=== PATIENT | female | born 1990 | race Caucasian/White ===

== ENCOUNTER 2017-08-23 10:32 | Emergency (ER) | payer OTHER ==
[2017-08-23 10:38] VITALS: BP 103/68; PULSE 82; TEMP 98.3; BMI 29.2
--- NOTE | 2017-08-23 10:58 | PDOC ---
History of Present Illness - General Chief Complaint: Injury Stated Complaint: FALL/ RT ANKLE SWELLING - History of Present Illness Initial Comments: 27-year-old female without comorbidities presents for evaluation of right ankle pain after twisting injury 4 days ago. She points to the lateral aspect of the right ankle as the area of his discomfort she describes her pain is achy exacerbated with weightbearing and activity relieved with rest and free of radiation. No prior problems with the right ankle. 08/23/17 10:57 Past History - Past Medical History Allergies/Adverse Reactions: Allergies Allergy/AdvReac Type Severity Reaction Status Date / Time No Known Allergies Allergy Verified 08/23/17 10:36 Home Medications: Ambulatory Orders NK [No Known Home Medication] 08/23/17 COPD: No - Surgical History Abdominal Surgery: Yes (RT OVARIAN CYST) - Suicide/Smoking/Psychosocial Hx Smoking History: Never smoked Have you smoked in the past 12 months: No Information on smoking cessation initiated: No Hx Alcohol Use: No Drug/Substance Use Hx: No Substance Use Type: None Review of Systems - Review of Systems Musculoskeletal: Yes: Joint Pain All Other Systems: Reviewed and Negative *Physical Exam - Vital Signs Last Vital Signs Temp Pulse Resp BP Pulse Ox 98.3 F 82 18 103/68 100 08/23/17 10:36 08/23/17 10:36 08/23/17 10:36 08/23/17 10:36 08/23/17 10:36 - Physical Exam Comments: Right ankle is slightly ecchymotic about the lateral aspect. There is swelling. Normal temperature. There is tenderness about the ATFL. No tenderness along the proximal fibula or to its distal course. No tenderness about the medial lateral malleolus. Base of the fifth metatarsal or navicular. There is no appreciable instability. There are no gross sensorimotor deficits range of motion is slightly decreased stiffness and discomfort. She's neurovascularly intact. 08/23/17 10:58 ED Treatment Course - RADIOLOGY Radiology Studies Ordered: Category Date Time Status ANKLE-RIGHT [RAD] Stat Radiology 08/23/17 10:52 Ordered Medical Decision Making - Medical Decision Making This is a right lateral ankle sprain no evidence of fracture or trauma on radiograph Aircast crutches weight-bear as tolerated follow-up with orthopedics 08/23/17 11:03 *DC/Admit/Observation/Transfer Diagnosis at time of Disposition: Ankle sprain - Discharge Dispostion Disposition: HOME Condition at time of disposition: Stable Decision to Admit order: No - Referrals Referrals: Tyrone Worthington MD [Staff Physician] - - Patient Instructions Printed Discharge Instructions: Ankle Sprain, DI for Ankle Sprain Additional Instructions: Ice her ankle for 20 minutes at a time 5-6 times a day he may weight-bear as tolerated with use of crutches and the Aircast please follow-up with orthopedics for further evaluation and treatment options. Return to the emergency room should her symptoms worsen or go unresolved. It's very important few to elevate the ankle above the level of your heart. May take Tylenol Motrin for pain and swelling. - Post Discharge Activity
== END 2017-08-23 11:19 | disposition home or self-care (01) ==
LOC: JERFT 10:32
PROC: 2W3QX1Z Immobilization of Right Lower Leg using Splint (ICD-10-PCS; principal; 2017-08-23)
DX: S93.401A Sprain of unspecified ligament of right ankle, initial encounter (principal); W18.39XA Other fall on same level, initial encounter; Y93.89 Activity, other specified; Y92.89 Other specified places as the place of occurrence of the external cause; Y99.8 Other external cause status
CPT/HCPCS: 29515; 73610-TC-RT-FY; 99281-25

== ENCOUNTER 2018-04-23 10:51 | Emergency (ER) | payer OTHER ==
[2018-04-23 10:57] VITALS: TEMP 98.2; BMI 29.2
--- NOTE | 2018-04-23 12:04 | PDOC ---
History of Present Illness - General Chief Complaint: Pain Stated Complaint: RTL ABD PAIN Time Seen by Provider: 04/23/18 11:11 - History of Present Illness Initial Comments: 28yo A3 with PMH of R. ovarian cyst s/p "removal three years ago", recent miscarriage in January presenting with RLQ abdominal pain. Last menstrual period was 03/12/18. She also reports one day of vaginal bleeding on 04/18/18. The pain started yesterday on Tuesday. She describes it as sharp, similar to when she had an ovarian cyst. She rates it 6/10, it occurs a couple seconds at a time and will go away on its own. The pain is nonradiating. Endorses nausea, but no vomiting. Has not taken anything for her pain. Last bowel movement was a yellow-green loose stool without blood. Patient endorses diarrhea is normal for her. No history of abdominal surgeries. She reports urinary frequency, but no dysuria or hematuria. Denies contractions, vaginal discharge, or passage of tissue. No fevers, chills, or chest pain. Past History - Past Medical History Allergies/Adverse Reactions: Allergies Allergy/AdvReac Type Severity Reaction Status Date / Time No Known Allergies Allergy Verified 04/23/18 10:56 Home Medications: Ambulatory Orders NK [No Known Home Medication] 08/23/17 COPD: No Other medical history: 1 miscarriage and 2 abortions - Surgical History Abdominal Surgery: Yes (RT OVARIAN CYST) - Suicide/Smoking/Psychosocial Hx Smoking History: Never smoked Have you smoked in the past 12 months: No Hx Alcohol Use: No Drug/Substance Use Hx: No Substance Use Type: None Review of Systems - Review of Systems Comments:: Constitutional: no fever, no chills HEENT: no throat pain, no dysphagia Cardiovascular: no chest pain, no palpitations Respiratory: no cough, no shortness of breath Gastrointestinal: +abdominal pain, +nausea Genitourinary: no dysuria, +frequency Musculoskeletal: no myalgia, no arthralgia Skin: no rash, no itching Neurologic: no headache, no dizziness *Physical Exam - Vital Signs Last Vital Signs Temp Pulse Resp BP Pulse Ox 98.2 F 93 H 18 107/58 L 100 04/23/18 10:52 04/23/18 10:52 04/23/18 10:52 04/23/18 10:52 04/23/18 10:52 - Physical Exam Comments: General: Awake, alert, and fully oriented, in no acute distress Head: No signs of trauma Eyes: EOMI, sclera anicteric ENT: Moist mucus membranes Neck: Normal ROM, supple Lungs: Lungs clear, Normal breath sounds Cardio: Regular rhythm, S1 and S2 present Abdomen: Tender to palpation in the RLQ, without peritoneal signs. Soft, nondistended. No guarding, no rebound, no masses Extremities: Normal range of motion, Distal pulses present SKIN: Warm, Dry, normal turgor Neurologic: Cranial nerves II through XII grossly intact. Normal speech Pelvic: External genitalia without erythema, exudate or discharge. Vaginal vault is without discharge. Cervix is of normal color without lesion. The os is closed. There is no bleeding noted. Uterus is noted to be of normal size and nontender. No cervical motion tenderness is seen. No masses are palpated. The adnexa are without masses or tenderness. Moderate Sedation - Procedure Monitoring Vital Signs: Procedure Monitoring Vital Signs Temperature 98.2 F 04/23/18 10:52 Pulse Rate 93 H 04/23/18 10:52 Respiratory Rate 18 04/23/18 10:52 Blood Pressure 107/58 L 04/23/18 10:52 O2 Sat by Pulse Oximetry (%) 100 04/23/18 10:52 ED Treatment Course - LABORATORY CBC & Chemistry Diagram: 04/23/18 12:42 04/23/18 12:42 Medical Decision Making - Medical Decision Making 28yo A3 with PMH of R. ovarian cyst s/p "removal three years ago", recent miscarriage in January presenting with RLQ abdominal pain. DDX including but not limited to ovarian cyst, threatened , ectopic , appendicitis, gastroenteritis 650 po tylenol 04/23/18 12:51 No anemia or leukocytosis UA negative for infectin, 1+ hematuria noted Pending chemistries 04/23/18 13:24 B-hc.[id number], consistent with gestational age of 3-5 weeks TVUS: A 1.5 cm right ovarian cyst/follicle is seen "Impression: A single intrauterine gestation is noted at approximately 5 weeks 5 days. No definite embryonic cardiac activity is seen at this time - ? early viable (versus nonviable ). Correlate with beta hCG levels, follow-up sonography. " No anemia or leukocytosis Right ovarian cyst may be causing patient's symptoms. Patient has not felt any pain while in the ED. Patient discharged *DC/Admit/Observation/Transfer Diagnosis at time of Disposition: Abdominal pain in Qualifiers: Trimester: first trimester Qualified Code(s): O26.891 - Other specified related conditions, first trimester - Discharge Dispostion Disposition: HOME Condition at time of disposition: Stable - Referrals Referrals: Meghann Ramírez MD [Staff Physician] - Rafaela Thorne DO [Staff Physician] - - Patient Instructions Printed Discharge Instructions: DI for Abdominal Pain -- Early Additional Instructions: You were seen in the Emergency Department for vaginal spotting. Blood work was normal. Urinalysis did not show an infection. TVUS showed a in the uterus but did not show a heartbeat. It is still early in the . A copy of the report was given to you. Your beta-hcg level today was 2234.2. Follow-up with your golf cart repairer this week. Call and make an appointment. Your workup is not complete until you do so. Return to the Emergency Department if you experience: -heavy bleeding (more than two pads per hour for two hours) -severe pain -lightheadedness -shortness of breath -high fever -any other concerning symptoms - Post Discharge Activity
[2018-04-23 12:19] LABS: HCG,QUALITATIVE URINE Positive
[2018-04-23 12:24] LABS: URINE APPEARANCE SLCLOUDY; URINE BILIRUBIN NEGATIVE (<2.0 mg/dL); URINE COLOR YELLOW; URINE GLUCOSE (UA) NEGATIVE (NEGATIVE); URINE KETONE NEGATIVE (NEGATIVE); URINE LEUK ESTERASE NEGATIVE (NEGATIVE); URINE NITRITE NEGATIVE (NEGATIVE); URINE PROTEIN NEGATIVE (NEGATIVE); URINE UROBILINOGEN NEGATIVE mg/dL (0.2-1.0)
[2018-04-23] MEDS ORDERED: ACETAMINOPHEN 325 MG TABLET (FP) PO ONE (12:30)
[2018-04-23] MEDS ORDERED: ACETAMINOPHEN 325 MG TABLET (FP) ONE (12:35)
--- NOTE | 2018-04-23 12:43 | PDOC ---
Attending Attestation - Resident Resident Name: Angelica López - ED Attending Attestation I have performed the following: I have examined & evaluated the patient, The case was reviewed & discussed with the resident, I agree w/resident's findings & plan, Exceptions are as noted - HPI HPI: 04/23/18 14:14 The patient is a A3 28 year old female, with significant PMH of ovarian cysts who presents to the emergency department with RLQ pain, since tuesday night. The patient reports the RLQ pain is sharp and intermittent, lasting about one minute each time, and is similar to the pain she experienced with ovarian cyst. The patient reports her last mense was march 12, but she did have 1 day of vaginal bleeding on april 18 wo associated bleeding. The patient had a recent miscarriage of a 7 week in january 2018. The patient reports 1x episode of diarrhea last night, nonbloody and nontarry but non today. The patient notes nausea and urinary frequency. The patient denies any contractions or vaginal bleeding or discharge. The patient denies chest pain, shortness of breath, headache and dizziness. Denies fever, chills, vomit, diarrhea and constipation. Denies dysuria, urgency and hematuria. Allergies: NKA Past surgical history: R ovarian cyst removed 3 years ago Social history: No reported - Physicial Exam PE: 04/23/18 14:14 see below - Medical Decision Making 04/23/18 12:39 28y F hx A3, hx of R ovarian cyst sp cystecotmy, presents with RLQ pain that is 8/10 and is sharp, intermitent. It is non radiating, feels similar to previous ovarian cysts. It is not worse with omvement. endorse some dharrea last night w/o blood, endorses nausea w/o vomiting. LMP Mar 22, had some bleeding 04/18. Pt had a postive home preganncy test at home. Denies any vaginal bleeding, fever/chills, ches tpain, sob. Denies abd surgeries beside cystectomy exam: Geeneral: no acute distress, well appearing Abd: mild TTP RLA, no rebound/guardng, no cva tenderness ddx - possible ectopic, appendicitis, ovarian cyst, torsion, cystitis/uti will obtain beta quant labs pain control TVUS A portion of this note was documented by scribe services under my direction. I have reviewed the details of the note, within reason, and agree with the documentation with the following case summary and management plan written by me 04/23/18 13:53 pts TVUS noted with IUP w/o heart rate - may be due to early labs otherwise unremarkable pt feels improved will dc the pt to fu with obgyn return precautions were discussed
[2018-04-23 12:50] LABS: EPI CELLS FEW /HPF (FEW); URINE BACTERIA RARE /hpf (NONE SEEN); URINE MUCUS MANY
[2018-04-23 12:58] LABS: BASO % 0.7 % (0-2.0); EOS % 0.8 % (0-4.5); HEMOGLOBIN 13.6 GM/dL (10.7-15.3); LYMPH % 25.8 % (8-40); MCH 32.6 pg (25.7-33.7); MCHC 34.8 g/dl (32.0-36.0); MEAN CELL VOLUME 93.9 fl (80-96); MEAN PLT VOLUME 9.2 fl (7.5-11.1); MONO % 7.4 % (3.8-10.2); NEUT % 65.3 % (42.8-82.8); PLATELET COUNT 198 K/MM3 (134-434); RBC 4.16 M/mm3 (3.60-5.2); RDW 13.4 % (11.6-15.6); WHITE BLOOD COUNT 7.6 K/mm3 (4.0-10.0)
[2018-04-23 13:47] LABS: ALK PHOS 61 U/L (45-117); ANION GAP 8 MMOL/L (8-16); BILIRUBIN,TOTAL 0.4 mg/dL (0.2-1); BLOOD UREA NITROGEN 12 mg/dL (7-18); CALCIUM 8.3 mg/dL (8.5-10.1); CHLORIDE 105 mmol/L (98-107); CO2 25 mmol/L (21-32); CREATININE 0.8 mg/dL (0.55-1.3); GLUCOSE,RANDOM 87 mg/dL (74-106); LIPASE 132 U/L (73-393); POTASSIUM 3.9 mmol/L (3.5-5.1); SGOT/AST 14 U/L (15-37); SGPT/ALT 28 U/L (13-61); SODIUM 138 mmol/L (136-145); TOT PROT 7.2 g/dl (6.4-8.2)
[2018-04-23 14:07] VITALS: BP 120/59; PULSE 91
== END 2018-04-23 14:07 | disposition home or self-care (01) ==
LOC: JER 10:51
DX: O26.891 Other specified pregnancy related conditions, first trimester (principal); O34.81 Maternal care for other abnormalities of pelvic organs, first trimester; N83.291 Other ovarian cyst, right side; Z3A.01 Less than 8 weeks gestation of pregnancy
CPT/HCPCS: 36415; 76817-TC; 80053; 81003; 81015; 83690; 84702; 84703; 85025; 86850; 86900; 86901; 99282-25

== ENCOUNTER 2018-07-19 20:31 | Emergency (ER) | payer OTHER | END 2018-07-20 00:43 | disposition home or self-care (01) | LOC: JER 07-20 00:43 ==

== ENCOUNTER 2018-12-18 10:55 | Inpatient (IN) | payer OTHER ==
[2018-12-18] MEDS: ELECTROLYTE-148 SOLN 1,000 ML IV SCH ×3 (11:45→15:25)
[2018-12-18 11:56] VITALS: BMI 35.3
[2018-12-18 12:49] LABS: BASO % 0.1 % (0-2.0); EOS % 0.2 % (0-4.5); HEMATOCRIT 38.6 % (32.4-45.2); HEMOGLOBIN 12.7 GM/dL (10.7-15.3); LYMPH % 11.1 % (8-40); MCH 29.7 pg (25.7-33.7); MCHC 32.8 g/dl (32.0-36.0); MEAN CELL VOLUME 90.5 fl (80-96); MEAN PLT VOLUME 9.9 fl (7.5-11.1); MONO % 5.1 % (3.8-10.2); NEUT % 83.5 % (42.8-82.8); PLATELET COUNT 198 K/MM3 (134-434); RBC 4.26 M/mm3 (3.60-5.2); RDW 16.1 % (11.6-15.6); WHITE BLOOD COUNT 11.6 K/mm3 (4.0-10.0)
[2018-12-18 13:05] LABS: INR 0.93 (0.83-1.09)
[2018-12-18 13:08] LABS: ACTIVATED PTT 29.8 SECONDS (25.2-36.5)
[2018-12-18 13:14] LABS: BLOOD UREA NITROGEN 10.5 mg/dL (7-18); CALCIUM 8.9 mg/dL (8.5-10.1); CREATININE 0.7 mg/dL (0.55-1.3); POTASSIUM 3.9 mmol/L (3.5-5.1)
[2018-12-18] MEDS ORDERED: FENTANYL/BUPIVACAINE/NS/PF - PCEA - 50 ML DISP.SYRIN EP ONE ×2 (13:49→19:30)
--- NOTE | 2018-12-18 13:59 | HP ---
Past Medical History - Admission History Source: Patient, Medical Record Limitations to Obtaining History: No Limitations - Past Medical History Cardiovascular: No: HTN, [place] Pulmonary: No: COPD Gastrointestinal: No: GERD, Irritable Bowel Disease Hepatobiliary: No: Hepatitis B, Hepatitis C Renal/: No: UTI Reproductive: No: PID ...: 4 ...Para: 0 ...Term: 0 ...: 0 ...Spon : 1 ...Induced : 2 ...Multiple Gestation: 0 ...LMP: 03/17/18 ... Weeks Gestation by Dates: 39.3 ...EDC by Dates: 12/22/18 ...EDC by Sono: 12/24/18 Psych: No: Anxiety, Bipolar, Depression - Past Surgical History Hx Myomectomy: No Hx Transabdominal Cerclage: No Additional Surgical History: ovarian cystectomy - Smoking History Smoking history: Never smoked Have you smoked in the past 12 months: No - Alcohol/Substance Use Hx Alcohol Use: No History of Substance Use: reports: None - Social History Usual Living Arrangement: Yes: With Significant Other ADL: Independent History of Recent Travel: No Home Medications - Allergies Allergies/Adverse Reactions: Allergies Allergy/AdvReac Type Severity Reaction Status Date / Time No Known Allergies Allergy Verified 12/18/18 11:34 - Home Medications Home Medications: Ambulatory Orders 19 Tablet 1 tab PO DAILY 11/28/18 Review of Systems - Review of Systems Constitutional: reports: No Symptoms Eyes: reports: No Symptoms HENT: reports: No Symptoms Neck: reports: No Symptoms Cardiovascular: reports: No Symptoms Respiratory: reports: No Symptoms Gastrointestinal: reports: No Symptoms Genitourinary: reports: Vaginal Bleeding (bloody show), Other (contractions) Integumentary: reports: No Symptoms Neurological: reports: No Symptoms Endocrine: reports: No Symptoms Hematology/Lymphatic: reports: No Symptoms Physical Exam - Maternity Vital Signs: Vital Signs Temperature 98.2 F 12/18/18 13:00 Pulse Rate 89 12/18/18 13:00 Respiratory Rate 20 12/18/18 13:00 Blood Pressure 119/66 12/18/18 13:00 O2 Sat by Pulse Oximetry (%) Constitutional: Yes: Well Nourished, No Distress, Calm Eyes: Yes: Conjunctiva Clear, EOM Intact HENT: Yes: Atraumatic Neck: Yes: Supple Cardiovascular: Yes: Regular Rate and Rhythm Lungs: Clear to auscultation - Abdominal Exam/OB Number of Fetuses: Single Presentation: Vertex Heart Rate (range): 135 Category: I Accelerations: Uniform Decelerations: None - Vaginal Exam/OB Vaginal Bleediing: Yes Dilatation (cm): 5.5 Effacement (%): 100 Amniotic Membrane Status: Bulging Presentation: Vertex/Position Station: -3 - Physical Exam Psychiatric: Yes: Alert, Oriented - Labs Lab Results: CBC, BMP 12/18/18 11:43 12/18/18 11:43 Hemorrhage Risk Assessment - Risk Factors Medium Risk Factors: Yes: None High Risk Factors: Yes: None Risk Score: 1 Risk Level: Medium Risk Problem List - Problems (1) Active labor at term Code(s): [id number] - Assessment/Plan 28 y/o with SIUP at 39.3 weeks, labor admitted to L&D FHTs cat 1 epidural planned - anesthesia aware for AROM/pitocin anticipate
[2018-12-18] MEDS ORDERED: OXYTOCIN 30 UNITS in 0.9% NS 30 UNIT/500 ML INFUS.BAG IVPB SCH (14:00)
[2018-12-18] MEDS ORDERED: LIDO 2%/EPI 1:200000 PRESRVFRE (20 ML SDVIAL) ONE (14:02)
[2018-12-18] MEDS ORDERED: BUPIVACAINE HCL/PF 2.5 MG/ML - 30 ML VIAL IJ ONE ×3 (14:03→19:25)
[2018-12-18] MEDS: FENTANYL/BUPIVACAINE/NS/PF - PCEA - 50 ML DISP.SYRIN EP SCH (14:30)
[2018-12-18] MEDS ORDERED: NALOXONE HCL 0.4 MG/ML VIAL IVPUSH PRN (14:51)
[2018-12-18] MEDS ORDERED: ePHEDrine SULFATE 50 MG/1 ML AMPULE ONE (14:57)
[2018-12-18] MEDS ORDERED: OXYTOCIN 30 UNITS in 0.9% NS 30 UNIT/500 ML INFUS.BAG IVPB ONE (15:29)
--- NOTE | 2018-12-18 21:07 | PN ---
Ante-Partal Exam - Subjective Subjective: Pt uncomfortable, feeling pressure. Vital Signs: Vital Signs Temperature 98.9 F 12/18/18 17:01 Pulse Rate 86 12/18/18 18:45 Respiratory Rate 20 12/18/18 18:45 Blood Pressure 135/82 12/18/18 18:45 O2 Sat by Pulse Oximetry (%) 99 12/18/18 18:45 Bleeding: Yes Bleeding Description: Mild (consistent with bloody show) Headache: No Visual changes: No Right upper quadrant pain: No - Contractions Contractions: Yes Regularity: Regular Intensity: Mod/Strong - Exam during Labor Heart Rate: 145 Variability: Moderate Category: II Monitor Accelerations: Present Monitor Decelerations: Variable Exam: Vaginal Dilatation (cm): 9.5 Effacement (%): 100 Amniotic Membrane Status: Ruptured Presentation: Vertex Station: 0 - Assessment/Plan Assessment/Plan: 28 y/o with SIUP at 39.3 weeks here for labor, s/p AROM and now augmented with pitocin FHTS cat 2, making progress, will recheck in 20-30 minutes anticipate
[2018-12-18] MEDS ORDERED: LIDOCAINE HCL 1% PRESERVATIVE FREE - 30ML VIAL ONE (21:30)
[2018-12-18] MEDS ORDERED: OXYTOCIN 20 UNITS in 0.9% NS 20 UNIT/1,000 ML INFUS.BAG IV ONE ×2 (21:30→22:42)
--- NOTE | 2018-12-18 22:41 | PN ---
Ante-Partal Exam - Subjective Subjective: Pt feeling uncomfortable with contractions. Vital Signs: Vital Signs Temperature 98.9 F 12/18/18 17:01 Pulse Rate 86 12/18/18 18:45 Respiratory Rate 20 12/18/18 18:45 Blood Pressure 135/82 12/18/18 18:45 O2 Sat by Pulse Oximetry (%) 99 12/18/18 18:45 Bleeding: Yes Headache: No Visual changes: No Right upper quadrant pain: No Pain (scale 1-10): 8 - Contractions Contractions: Yes Regularity: Regular Intensity: Mod/Strong - Exam during Labor Heart Rate: 145 Variability: Moderate Category: II Monitor Accelerations: Absent Monitor Decelerations: Variable Exam: Vaginal Dilatation (cm): 9.5 Effacement (%): 100 Amniotic Membrane Status: Ruptured Presentation: Vertex Station: 0 - Assessment/Plan Assessment/Plan: 28 y/o with SIUP at 39.3 weeks, labor, category 2 FHR tracing attempt at pushing with minimal descent will retry in 30 minutes, if not effective in pushing may need delivery pt made aware
--- NOTE | 2018-12-18 22:42 | PN ---
Progress Note (short form) - Note Progress Note: Due to recurrent variables worsening, plan made for primary c section, pt aware informed consent obtained R/B/A discussed anesthesia aware weems catheter in place prep pt/OR for c section Problem List - Problems (1) Active labor at term Code(s): [id number] -
[2018-12-18] MEDS ORDERED: morphine SULFATE/PF 0.5 MG/ML (2cc Syringe - QUVA) ONE (22:44)
[2018-12-18] MEDS ORDERED: SUCCINYLCHOLINE CHLORIDE 200 MG/10 ML SYRINGE ONE (22:47)
[2018-12-18] MEDS ORDERED: ceFAZolin SODIUM 1 GM VIAL ONE (23:12)
[2018-12-18] MEDS ORDERED: KETOROLAC TROMETHAMINE 30 MG/1 ML VIAL ONE (23:34)
[2018-12-18] MEDS ORDERED: morphine SULFATE/PF 0.5 MG/ML (2cc Syringe - QUVA) EP ONE (23:40)
[2018-12-18] MEDS ORDERED: ONDANSETRON 4 MG/2 ML VIAL IVPUSH PRN (23:40)
[2018-12-18] MEDS ORDERED: OXYTOCIN 20 UNITS in 0.9% NS 20 UNIT/1,000 ML INFUS.BAG IV SCH (23:45)
[2018-12-18] MEDS ORDERED: oxyCODONE HCL 5 MG TABLET PO PRN ×2 (23:47)
[2018-12-18] MEDS ORDERED: SIMETHICONE 80 MG TAB.CHEW (FP) PO PRN (23:47)
[2018-12-18] MEDS ORDERED: METHYLERGONOVINE MALEATE 0.2 MG/1 ML AMP IM PRN (23:47)
--- NOTE | 2018-12-18 23:51 | OP ---
Operative Note - Note: Operative Date: 12/18/18 Pre-Operative Diagnosis: recurrent variable decelerations, arrest of descent Operation: primary LTCS Post-Operative Diagnosis: Same as Pre-op Surgeon: Rafaela Thorne Outside Deliverer: Franck Yu Anesthesiologist/DIAMOND SELECTOR: Gabrielle García Anesthesia: Spinal Specimens Removed: placenta. cord blood Estimated Blood Loss (mls): 700 Operative Report Dictated: Yes
[2018-12-19] MEDS ORDERED: OXYTOCIN 20 UNITS in 0.9% NS 20 UNIT/1,000 ML INFUS.BAG IV ONE (01:17)
--- NOTE | 2018-12-19 04:32 | RAPID ---
Physical Examination Vital Signs: Vital Signs Temperature 98.4 F 12/19/18 01:42 Pulse Rate 95 H 12/19/18 01:42 Respiratory Rate 20 12/19/18 02:00 Blood Pressure 102/54 L 12/19/18 01:42 O2 Sat by Pulse Oximetry (%) 98 12/19/18 01:42 Labs: CBC, BMP 12/18/18 11:43 12/18/18 11:43
[2018-12-19 04:37] LABS: ARTERIAL BLD GAS O2 SATURATION 99.3 % (95-98); ARTERIAL BLOOD GAS BASE EXCESS -5.4 meq/l (-2-2); ARTERIAL BLOOD GAS PCO2 31.5 mmHg (35-45); ARTERIAL BLOOD GAS PO2 194 mmHg (80-100); ARTERIAL BLOOD GAS pH 7.38 (7.35-7.45)
[2018-12-19 04:38] LABS: ALLENS TEST POSITIVE
[2018-12-19 04:58] LABS: BASO % 0.1 % (0-2.0); HEMATOCRIT 22.8 % (32.4-45.2); HEMOGLOBIN 7.3 GM/dL (10.7-15.3); LYMPH % 8.2 % (8-40); MCH 29.1 pg (25.7-33.7); MCHC 31.8 g/dl (32.0-36.0); MEAN CELL VOLUME 91.5 fl (80-96); MEAN PLT VOLUME 9.7 fl (7.5-11.1); MONO % 7.5 % (3.8-10.2); NEUT % 84.2 % (42.8-82.8); PLATELET COUNT 195 K/MM3 (134-434); RBC 2.49 M/mm3 (3.60-5.2); RDW 16.4 % (11.6-15.6); WHITE BLOOD COUNT 15.4 K/mm3 (4.0-10.0)
--- NOTE | 2018-12-19 05:16 | PN ---
Progress Note, Physician Chief Complaint: Came to see patient for episode of hypotension and tachycardia. Pt felt dizzy and was unresponsive. Pt is approx 6 hours s/p uncomplicated primary c section for recurrent variables. C section had EBL of 700cc. Rapid reponse was called , pt initially had HR in the 150s and hypotensive 80s/30s. EKG completed - sinus tachycardia. O2 sat 95% on RA. Upon my vaginal examination approximately 500cc of blood clot expelled from uterus. Bedside ultrasound after expelling blood/clots showed thin endometrial stripe. Pt then recieved one dose of methergine as well. Pt now improved, HR in the 110s/low 120s but still hypotensive. Hgb now 7.3 from 12.7 on admission. - Current Medication List Current Medications: Active Medications Acetaminophen (Tylenol -) 650 mg PO Q4H PRN PRN Reason: FEVER Bisacodyl (Dulcolax Suppository -) 10 mg RC PRN PRN PRN Reason: CONSTIPATION Diphenhydramine HCl (Benadryl Injection -) 25 mg IVPUSH Q4H PRN PRN Reason: Pruritis Last Admin: 12/19/18 03:27 Dose: 25 mg Fentanyl/Bupivacaine/Sodium Chlor (Bupivicaine 0.125%/Fentanyl 2mcg/Ml Pcea) 50 ml EP ASDIR MARLEN; Protocol Last Admin: 12/18/18 14:30 Dose: 50 ml Parenteral Electrolytes (Plasma-Lyte 148 -) 1,000 mls @ 125 mls/hr IV ASDIR MARLEN Last Admin: 12/18/18 15:25 Dose: 125 mls/hr Oxytocin/Sodium Chloride (Normal Saline+30 Units Oxytocin) 30 unit in 500 mls @ 1 mls/hr IVPB [facility]; Protocol Last Titration: 12/18/18 20:20 Dose: 0.3 unit/hr, 5 mls/hr Oxytocin/Sodium Chloride (Normal Saline+20 Units Oxytocin -) 20 unit in 1,000 mls @ 125 mls/hr IV ASDIR MARLEN Ibuprofen (Motrin -) 600 mg PO Q4H PRN PRN Reason: PAIN LEVEL 1 - 3 Ibuprofen (Caldolor Injection -) 800 mg IVPB Q8H PRN PRN Reason: PAIN LEVEL 6-10 Methylergonovine Maleate (Methergine Injection -) 0.2 mg IM Q4H PRN PRN Reason: Excessive Bleeding (L&D) Naloxone HCl (Narcan -) 0.4 mg IVPUSH PRN PRN PRN Reason: Sedation Ondansetron HCl (Zofran Injection) 4 mg IVPUSH Q4H PRN PRN Reason: NAUSEA Oxycodone HCl (Roxicodone -) 5 mg PO Q4H PRN PRN Reason: PAIN LEVEL 4 - 6 Oxycodone HCl (Roxicodone -) 10 mg PO Q4H PRN PRN Reason: PAIN LEVEL 7 - 10 Multivit/Folic Acid/Iron ( Vitamins (Sjr) -) 1 tab PO DAILY MARLEN Simethicone (Mylicon -) 80 mg PO Q4H PRN PRN Reason: GAS - Objective Vital Signs: Vital Signs Temperature 98.4 F 12/19/18 01:42 Pulse Rate 95 H 12/19/18 01:42 Respiratory Rate 20 12/19/18 02:00 Blood Pressure 102/54 L 12/19/18 01:42 O2 Sat by Pulse Oximetry (%) 98 12/19/18 01:42 Constitutional: Yes: Well Nourished, No Distress, Calm HENT: Yes: Atraumatic, Normocephalic Neck: Yes: Supple, Trachea Midline Cardiovascular: Yes: Tachycardia Respiratory: Yes: Regular Gastrointestinal: Yes: Soft. No: Tenderness Edema: Yes (b/l labial edema) Peripheral Pulses WNL: Yes Wound/Incision: Yes: Clean/Dry, Well Approximated Neurological: Yes: Alert, Oriented ...Motor Strength: LUE (WNL), LLE (WNL) Labs: CBC, BMP 12/19/18 04:30 INR, PTT INR 0.93 (0.83-1.09) 12/18/18 11:43 - ....Imaging Chest X-ray: Pending Ultrasound: Image Reviewed (by bedside ultrasound) Problem List - Problems (1) Active labor at term Code(s): [id number] - (2) Anemia Code(s): D64.9 - ANEMIA, UNSPECIFIED (3) delivery delivered Code(s): O82 - ENCOUNTER FOR DELIVERY WITHOUT INDICATION (4) hemorrhage Code(s): O72.1 - OTHER IMMEDIATE HEMORRHAGE Assessment/Plan Pt improving, however still hypotensive, will sent pt to telemetry for closer monitoring Stat 2 units PRBC ordered continue IVF bolus clear diet only for now close monitoring/fundal checks once stabilized to bring back to post floor
[2018-12-19 05:18] LABS: ALBUMIN 1.8 g/dl (3.4-5.0); BLOOD UREA NITROGEN 13.4 mg/dL (7-18); CALCIUM 7.1 mg/dL (8.5-10.1)
[2018-12-19 05:26] LABS: BILIRUBIN,TOTAL 0.5 mg/dL (0.2-1); CREATININE 0.8 mg/dL (0.55-1.3)
--- NOTE | 2018-12-19 05:41 | RAPID ---
Physical Examination Vital Signs: Vital Signs Temperature 98.4 F 12/19/18 01:42 Pulse Rate 95 H 12/19/18 01:42 Respiratory Rate 20 12/19/18 02:00 Blood Pressure 102/54 L 12/19/18 01:42 O2 Sat by Pulse Oximetry (%) 98 12/19/18 01:42 Labs: CBC, BMP 12/19/18 04:30 Rapid Response - Rapid Response Assessment: SUBJECTIVE: Rapid response called [id number]. square dance caller team responded immediately. Alerted by nursing staff that patient had a syncopal episode while lying in bed; Patient felt dizziness and lost conciousness for approximately 1 minute. Additionally informed by nursing staff that patient is status post with EBL 700cc' s. During my interview, patient was speaking in full sentences and able to recall the event. Denies any fevers, chills, chest pain, nausea, vomiting, diarrhea, constipation. OBJECTIVE: 140/53, HR 159, RR 18, O2 Sats 98% Room Air A&Ox3, NAD, Diaphoretic Tachycardic, S1 S2 CTAB Surgical dressing intact however bright red blood with clots draining from vagina ASSESSMENT/PLAN: #Vasovagal Syncope -Likely from Pain in the setting of acute blood loss anemia -Laborist and OBGyn (Dr. Thorne) alerted of events and present at bedside -EKG: Sinus Tachycardia, VR 112 QTc 455 -BP dropped to 80/40s, Given one dose methergine as per OBGyn note, BP improved to 120s -Check CBC, CMP, ABG, Trop, Lactic acid, CXR, Bedside Ultrasound -Tele monitoring as per OBGyn
[2018-12-19] MEDS: METHYLERGONOVINE MALEATE 0.2 MG/1 ML AMP IM SCH ×2 (07:10→12:48)
--- NOTE | 2018-12-19 09:17 | PN ---
Progress Note, Physician Chief Complaint: Pt seen/evaluated at bedside. Doing much better this a.m. BP 80-90/50-60, HR in 100s/110s. Denies feeling dizzy or light headed. Tolerating clears, no n/ v. VB scant/minimal. 2nd unit PRBC infusing now. +flatus - Current Medication List Current Medications: Active Medications Acetaminophen (Tylenol -) 650 mg PO Q4H PRN PRN Reason: FEVER Bisacodyl (Dulcolax Suppository -) 10 mg RC PRN PRN PRN Reason: CONSTIPATION Diphenhydramine HCl (Benadryl Injection -) 25 mg IVPUSH Q4H PRN PRN Reason: Pruritis Last Admin: 12/19/18 03:27 Dose: 25 mg Fentanyl/Bupivacaine/Sodium Chlor (Bupivicaine 0.125%/Fentanyl 2mcg/Ml Pcea) 50 ml EP ASDIR [facility]; Protocol Last Admin: 12/18/18 14:30 Dose: 50 ml Oxytocin/Sodium Chloride (Normal Saline+30 Units Oxytocin) 30 unit in 500 mls @ 1 mls/hr IVPB TITR [facility]; Protocol Last Titration: 12/18/18 20:20 Dose: 0.3 unit/hr, 5 mls/hr Ibuprofen (Motrin -) 600 mg PO Q4H PRN PRN Reason: PAIN LEVEL 1 - 3 Ibuprofen (Caldolor Injection -) 800 mg IVPB Q8H PRN PRN Reason: PAIN LEVEL 6-10 Methylergonovine Maleate (Methergine Injection -) 0.2 mg IM Q4H [facility] Stop: 12/19/18 10:46 Last Admin: 12/19/18 07:10 Dose: 0.2 mg Methylergonovine Maleate (Methergine -) 0.2 mg PO Q6H [facility] Stop: 12/21/18 10:01 Naloxone HCl (Narcan -) 0.4 mg IVPUSH PRN PRN PRN Reason: Sedation Ondansetron HCl (Zofran Injection) 4 mg IVPUSH Q4H PRN PRN Reason: NAUSEA Oxycodone HCl (Roxicodone -) 5 mg PO Q4H PRN PRN Reason: PAIN LEVEL 4 - 6 Oxycodone HCl (Roxicodone -) 10 mg PO Q4H PRN PRN Reason: PAIN LEVEL 7 - 10 Multivit/Folic Acid/Iron ( Vitamins (Sjr) -) 1 tab PO DAILY [facility] Simethicone (Mylicon -) 80 mg PO Q4H PRN PRN Reason: GAS - Objective Vital Signs: Vital Signs Temperature 98.3 F 12/19/18 06:14 Pulse Rate 107 H 12/19/18 07:00 Respiratory Rate 18 12/19/18 07:00 Blood Pressure 98/72 12/19/18 07:00 O2 Sat by Pulse Oximetry (%) 98 12/19/18 01:42 Constitutional: Yes: Well Nourished, No Distress, Calm Eyes: Yes: WNL HENT: Yes: Atraumatic, Normocephalic Neck: Yes: Supple, Trachea Midline Cardiovascular: Yes: Regular Rate and Rhythm Respiratory: Yes: Regular, CTA Bilaterally Gastrointestinal: Yes: Normal Bowel Sounds, Soft, Distention (mild distention), Tenderness (appropriate post surgical tenderness, fundus nontender). No: Vomiting Extremities: Yes: WNL Wound/Incision: Yes: Clean/Dry, Well Approximated Neurological: Yes: Alert, Oriented Psychiatric: Yes: Alert, Oriented Labs: CBC, BMP 12/19/18 04:30 12/19/18 04:30 INR, PTT INR 0.93 (0.83-1.09) 12/18/18 11:43 Problem List - Problems (1) Active labor at term Code(s): [id number] - (2) Anemia Code(s): D64.9 - ANEMIA, UNSPECIFIED (3) delivery delivered Code(s): O82 - ENCOUNTER FOR DELIVERY WITHOUT INDICATION (4) hemorrhage Code(s): O72.1 - OTHER IMMEDIATE HEMORRHAGE Assessment/Plan Anemia due to PPH 2nd unit PRBC infusing continue methergine 1 more dose IM then transition to PO for 24 hours total ultrasound reviewed, doesn't appear to be retained POC, bleeding scant now, pt improving continue current management repeat labs after 2nd unit PRBC if vitals improved/bleeding stable/labs stable will plan to transition back to post floor
[2018-12-19] MEDS: PRENATAL VITAMINS W/ FOLIC ACID TABLET (FP) PO SCH (10:00)
--- NOTE | 2018-12-19 11:04 | EKG ---
Test Reason : Blood Pressure : / mmHG Vent. Rate : 096 BPM Atrial Rate : 096 BPM P-R Int : 112 ms QRS Dur : 082 ms QT Int : 358 ms P-R-T Axes : 040 042 016 degrees QTc Int : 452 ms NORMAL SINUS RHYTHM NORMAL ECG NO PREVIOUS ECGS AVAILABLE Confirmed by Pierre Solis MD ([id number]) on 12/19/2018 11:04:05 AM Referred By: AZIZA CHURCH Confirmed By:Pierre Solis MD
[2018-12-19] MEDS ORDERED: SODIUM CHLORIDE 1,000 ML IV STA (11:16)
--- NOTE | 2018-12-19 11:17 | OP ---
DATE OF OPERATION: 12/18/2018 PREOPERATIVE DIAGNOSIS: Single intrauterine at 39.3 weeks, active labor, arrest of descent, recurrent, variable decelerations. POSTOPERATIVE DIAGNOSIS: Single intrauterine at 39.3 weeks, active labor, arrest of descent, recurrent, variable decelerations. PROCEDURE: Primary low transverse section. SURGEON: Rafaela Thorne DO ANESTHESIA: Gabrielle García MD who provided spinal. KITCHEN CLEANER: BRIDGER Lewis ESTIMATED BLOOD LOSS: 700 mL. COMPLICATIONS: None. SPECIMENS REMOVED: Placenta. FINDINGS: Normal bilateral tubes and ovaries. Live female . Sponge, needle, and instrument count correct. DISPOSITION: Stable to recovery room. BRIEF HISTORY AND PROCEDURE: Patient is a 28-year-old female who was admitted to labor and delivery on December 18, 2018. She received an epidural for pain control and her membranes were artificially ruptured and she had Pitocin augmentation. At approximately 10:30 PM, patient was found to be fully dilated. Attempt for pushing was initiated; however, the patient was not making any descent. The fetus began to have deep variable decelerations with each contraction at which point plan was made for a primary C section secondary to arrest of descent and nonreassuring heart tones. The consent for the procedure was signed. The patient was then taken back to the operating room. She was given spinal anesthesia by Dr. Gabrielle García as her previous epidural was not functioning. She was prepped and draped in the usual sterile fashion. A hard time-out was performed. A Pfannenstiel skin incision was created in the skin with a scalpel and carried to the underlying layer of rectus fascia sharply. The fascia was incised on either side of the midline sharply, and the fascial incision was carried in a superolateral direction sharply. The fascia was tented upward and dissected off the underlying layer of rectus muscle sharply. The musculature was identified in the midline and separately laterally. The peritoneum was entered bluntly and dissected to allow for adequate room for delivery. A bladder blade was inserted, and a low transverse incision was created in the uterus, which was extended in a superolateral direction bluntly. The infant was delivered from the left occiput anterior position without difficulty. The bilateral shoulders were delivered. The remainder of the delivered with ease. The umbilical cord was noted to be wrapped around the right foot twice. The cord was then clamped and cut, and the was taken over to the warmer to be assessed by neonatology. Apgars of 9 and 9 were assigned. A 3-vessel cord was appreciated, and the uterus was then exteriorized from the abdomen. The placenta was delivered manually. The uterus was cleared of all amniotic membrane and debris with a dry lap sponge. The hysterotomy was reapproximated with double-layer closure 1st using 1 Vicryl suture in a running, locked fashion, 2nd using 0 Biosyn in a running, locked fashion until excellent hemostasis was achieved. Bilateral tubes and ovaries are noted to be normal. The posterior cul-de-sac was suctioned. The uterus was placed back in the abdomen. Bilateral gutters were cleared of all blood clot and debris, and a hysterotomy was, again, noted to be hemostatic. The peritoneum was reapproximated using 2-0 chromic in a running fashion. The musculature was reapproximated in 2 interrupted sutures using 2-0 chromic. The fascia was reapproximated using 1 Vicryl in a running fashion. The subcutaneous tissue was irrigated. Areas of bleeding were cauterized with the Bovie device, and the subcutaneous tissue was reapproximated using 0 Vicryl in a running fashion. The skin was reapproximated in subcuticular fashion with 3-0 vicryl, and Steri-Strips were applied. The patient tolerated the procedure well and is recovering in stable condition at this time in the recovery room. Sponge, needle and instrument counts were reported as correct at the end of the case. RAFAELA THORNE DO /[id number] MTDD
--- NOTE | 2018-12-19 12:05 | PN ---
Physical Exam: SUBJECTIVE: Patient seen and examined. Feeling residual dizziness, but denies any chest pain, palpitations, SOB. OBJECTIVE: Vital Signs Period Temp Pulse Resp BP Sys/Arnold Pulse Ox Last 24 Hr 97.9 F-98.9 F 58-116 18-23 75-140/42-94 96-100 GENERAL: The patient is awake, alert, and fully oriented, in no acute distress. HEAD: Normal with no signs of trauma. EYES: PERRL, extraocular movements intact, sclera anicteric, conjunctiva clear. No ptosis. ENT: Ears normal, nares patent, oropharynx clear without exudates, moist mucous membranes. NECK: Trachea midline, full range of motion, supple. LUNGS: Breath sounds equal, clear to auscultation bilaterally, no wheezes, no crackles, no accessory muscle use. HEART: Tachycardic, regular rhythm, S1, S2 without murmur, rub or gallop. ABDOMEN: Soft, tenderness in lower abdomen surround surgical incision. Normoactive bowel sounds, no guarding. Surgical dressing clean, dry, intact. GENITOURINARY: Vaginal bleeding scant, pads in place. EXTREMITIES: 2+ pulses, warm, well-perfused, no edema. NEUROLOGICAL: Cranial nerves II through XII grossly intact. Normal speech, gait not observed. PSYCH: Normal mood, normal affect. SKIN: Warm, dry, normal turgor, no rashes or lesions noted Laboratory Results - last 24 hr CBC, BMP 12/19/18 04:30 12/19/18 04:30 Active Medications Acetaminophen (Tylenol -) 650 mg PO Q4H PRN PRN Reason: FEVER Bisacodyl (Dulcolax Suppository -) 10 mg RC PRN PRN PRN Reason: CONSTIPATION Diphenhydramine HCl (Benadryl Injection -) 25 mg IVPUSH Q4H PRN PRN Reason: Pruritis Last Admin: 12/19/18 03:27 Dose: 25 mg Fentanyl/Bupivacaine/Sodium Chlor (Bupivicaine 0.125%/Fentanyl 2mcg/Ml [facility]) 50 ml EP ASDIR [facility]; Protocol Last Admin: 12/18/18 14:30 Dose: 50 ml Oxytocin/Sodium Chloride (Normal Saline+30 Units Oxytocin) 30 unit in 500 mls @ 1 mls/hr IVPB TITR [facility]; Protocol Last Titration: 12/18/18 20:20 Dose: 0.3 unit/hr, 5 mls/hr Sodium Chloride (Normal Saline -) 1,000 mls @ 1,000 mls/hr IV ASDIR [facility] Stop: 12/19/18 12:15 Ibuprofen (Motrin -) 600 mg PO Q4H PRN PRN Reason: PAIN LEVEL 1 - 3 Ibuprofen (Caldolor Injection -) 800 mg IVPB Q8H PRN PRN Reason: PAIN LEVEL 6-10 Methylergonovine Maleate (Methergine -) 0.2 mg PO Q6H [facility] Stop: 12/20/18 10:01 Naloxone HCl (Narcan -) 0.4 mg IVPUSH PRN PRN PRN Reason: Sedation Ondansetron HCl (Zofran Injection) 4 mg IVPUSH Q4H PRN PRN Reason: NAUSEA Oxycodone HCl (Roxicodone -) 5 mg PO Q4H PRN PRN Reason: PAIN LEVEL 4 - 6 Oxycodone HCl (Roxicodone -) 10 mg PO Q4H PRN PRN Reason: PAIN LEVEL 7 - 10 Multivit/Folic Acid/Iron ( Vitamins (Sjr) -) 1 tab PO DAILY [facility] Simethicone (Mylicon -) 80 mg PO Q4H PRN PRN Reason: GAS ASSESSMENT/PLAN: Patient is a 28 year old female with no significant PMH who presents s/p emergency x1 day ago. Surgery had no complications, delivered a healthy baby. EBL 700ccs. #Anemia 2/2 hemorrhage Pt had rapid response overnight. Vasovagal syncope likely from pain and acute blood loss H/H: 7.3/22.8 (Hgb 12.7 on admission) Lactate: 2.2, cont to trend ABG unremarkable Pt receiving 2 units PRBC, IVF bolus. S/p transfusion, Hgb: 7.9 Methergine 0.2mg po Q6H, per OBGYN US: no retained POC, post- uterus Will need iron supplementation Vital signs improving, no longer hypotensive or tachycardic OBGyn closely following, frequent fundal checks Tele monitoring as pt is still borderline hypotensive #Vasovagal syncope 2/2 acute blood loss Neurologically intact, no evidence of neuro deficit or acute intracranial process #DVT ppx SCDs #FEN Clear diet for now IVF NS boluses #Dispo Transferred back to maternity Visit type - Emergency Visit Emergency Visit: No - New Patient This patient is new to me today: Yes Date on this admission: 12/19/18 - Critical Care Critical Care patient: No ATTENDING PHYSICIAN STATEMENT I saw and evaluated the patient. I reviewed the resident's note and discussed the case with the resident. I agree with the resident's findings and plan as documented. SUBJECTIVE: OBJECTIVE: ASSESSMENT AND PLAN:
[2018-12-19 12:26] LABS: HEMATOCRIT 24.4 % (32.4-45.2); HEMOGLOBIN 7.9 GM/dL (10.7-15.3); MCH 29.3 pg (25.7-33.7); MCHC 32.3 g/dl (32.0-36.0); MEAN CELL VOLUME 90.8 fl (80-96); MEAN PLT VOLUME 9.4 fl (7.5-11.1); PLATELET COUNT 121 K/MM3 (134-434); RBC 2.69 M/mm3 (3.60-5.2); RDW 14.9 % (11.6-15.6); WHITE BLOOD COUNT 16.8 K/mm3 (4.0-10.0)
[2018-12-19] MEDS ORDERED: PT OWN MED DRAWER 7, Y5N ONE ×2 (12:43→17:53)
--- NOTE | 2018-12-19 15:00 | PN ---
Teaching Attending Note Name of Resident: Alba Cassidy ATTENDING PHYSICIAN STATEMENT I saw and evaluated the patient. I reviewed the resident's note and discussed the case with the resident. I agree with the resident's findings and plan as documented. SUBJECTIVE: Feels well. Mild lightheadness. No cheat pain/palpitations. No further PV bleeding. OBJECTIVE: Afebrile, Hemodynamically Stable. Last Vital Signs Temp Pulse Resp BP Pulse Ox 98.4 F 104 H 27 H 109/57 L 100 12/19/18 10:00 12/19/18 12:00 12/19/18 12:00 12/19/18 12:00 12/19/18 09:00 HEENT - Atraumatic, normocephalic Heart - S1, S2, RRR Lungs - clear to auscultation Abdomen - Soft, post- abdomen, mild tenderness, incision dressed. Bowel Sounds normal. Extremities - no edema, no calf tenderness. Laboratory Results - last 24 hr 12/18/18 12/18/18 12/19/18 11:43 11:43 04:20 WBC RBC Hgb Hct MCV MCH MCHC RDW Plt Count MPV Absolute Neuts (auto) Neutrophils % Lymphocytes % Monocytes % Eosinophils % Basophils % Nucleated RBC % Anticoagulation Therapy No Result Required. Puncture Site Left brachial ABG pH 7.38 ABG pCO2 at Pt Temp 31.5 L ABG pO2 at Pt Temp 194 H ABG HCO3 18.4 L ABG O2 Sat (Measured) 99.3 H ABG O2 Content 12.9 ABG Base Excess -5.4 L Lupillo Test Positive O2 Delivery Device N/c Oxygen Flow Rate 6l Vent Mode No Result Required. Vent Rate No Result Required. Mechanical Rate No Result Required. Pressure Support Vent No Result Required. Sodium Potassium Chloride Carbon Dioxide Anion Gap BUN Creatinine Est GFR (CKD-EPI)AfAm Est GFR (CKD-EPI)NonAf Random Glucose Lactic Acid Calcium Total Bilirubin AST ALT Alkaline Phosphatase Creatine Kinase Troponin I Total Protein Albumin RPR Titer Nonreactive Blood Type O POSITIVE Antibody Screen Negative Crossmatch See Detail 12/19/18 12/19/18 12/19/18 04:30 04:30 04:30 WBC 15.4 H RBC 2.49 L Hgb 7.3 L Hct 22.8 L D MCV 91.5 MCH 29.1 MCHC 31.8 L RDW 16.4 H Plt Count 195 MPV 9.7 Absolute Neuts (auto) 12.9 H Neutrophils % 84.2 H Lymphocytes % 8.2 D Monocytes % 7.5 Eosinophils % 0.0 D Basophils % 0.1 Nucleated RBC % 0 Anticoagulation Therapy Puncture Site ABG pH ABG pCO2 at Pt Temp ABG pO2 at Pt Temp ABG HCO3 ABG O2 Sat (Measured) ABG O2 Content ABG Base Excess Lupillo Test O2 Delivery Device Oxygen Flow Rate Vent Mode Vent Rate Mechanical Rate Pressure Support Vent Sodium 145 Potassium 4.0 Chloride 115 H Carbon Dioxide 21 Anion Gap 9 BUN 13.4 Creatinine 0.8 Est GFR (CKD-EPI)AfAm 117.10 Est GFR (CKD-EPI)NonAf 101.04 Random Glucose 107 H Lactic Acid 2.2 H* Calcium 7.1 L Total Bilirubin 0.5 AST 16 ALT 11 L Alkaline Phosphatase 68 Creatine Kinase 103 Troponin I 0.02 Total Protein 4.0 L Albumin 1.8 L RPR Titer Blood Type Antibody Screen Crossmatch 12/19/18 12/19/18 08:50 12:07 WBC 16.8 H RBC 2.69 L Hgb 7.9 L Hct 24.4 L MCV 90.8 MCH 29.3 MCHC 32.3 RDW 14.9 Plt Count 121 L D MPV 9.4 Absolute Neuts (auto) Neutrophils % Lymphocytes % Monocytes % Eosinophils % Basophils % Nucleated RBC % Anticoagulation Therapy Puncture Site ABG pH ABG pCO2 at Pt Temp ABG pO2 at Pt Temp ABG HCO3 ABG O2 Sat (Measured) ABG O2 Content ABG Base Excess Lupillo Test O2 Delivery Device Oxygen Flow Rate Vent Mode Vent Rate Mechanical Rate Pressure Support Vent Sodium Potassium Chloride Carbon Dioxide Anion Gap BUN Creatinine Est GFR (CKD-EPI)AfAm Est GFR (CKD-EPI)NonAf Random Glucose Lactic Acid 2.2 H* Calcium Total Bilirubin AST ALT Alkaline Phosphatase Creatine Kinase Troponin I Total Protein Albumin RPR Titer Blood Type Antibody Screen Crossmatch Current Medications Generic Name Dose Route Start Last Admin Trade Name Freq PRN Reason Stop Dose Admin Acetaminophen 650 mg 12/18/18 23:47 Tylenol - PO Q4H PRN FEVER Bisacodyl 10 mg 12/19/18 23:48 Dulcolax Suppository - RC PRN PRN CONSTIPATION Diphenhydramine HCl 25 mg 12/18/18 23:40 12/19/18 03:27 Benadryl Injection - IVPUSH 25 mg Q4H PRN Administration Pruritis Fentanyl/Bupivacaine/Sodium Chlor 50 ml 12/18/18 15:00 12/18/18 14:30 Bupivicaine 0.125%/Fentanyl 2mcg/Ml P[facility]a EP 50 ml [facility]IR [facility] Administration Protocol Oxytocin/Sodium Chloride 30 unit in 500 mls @ 1 mls/hr 12/18/18 14:00 20:20 Normal Saline+30 Units Oxytocin IVPB 0.3 unit/hr TITR [facility] 5 mls/hr Titration Protocol 0.06 UNIT/HR Ibuprofen 600 mg 12/18/18 23:47 Motrin - PO Q4H PRN PAIN LEVEL 1 - 3 Ibuprofen 800 mg 12/18/18 23:47 Caldolor Injection - IVPB Q8H PRN PAIN LEVEL 6-10 Methylergonovine Maleate 0.2 mg 12/19/18 16:00 Methergine - PO 12/20/18 10:01 Q6H [facility] Naloxone HCl 0.4 mg 12/18/18 14:51 Narcan - IVPUSH PRN PRN Sedation Ondansetron HCl 4 mg 12/18/18 23:40 Zofran Injection IVPUSH Q4H PRN NAUSEA Oxycodone HCl 5 mg 12/18/18 23:47 Roxicodone - PO Q4H PRN PAIN LEVEL 4 - 6 Oxycodone HCl 10 mg 12/18/18 23:47 Roxicodone - PO Q4H PRN PAIN LEVEL 7 - 10 Multivit/Folic Acid/Iron 1 tab 12/19/18 10:00 12/19/18 10:00 Vitamins (Sjr) - PO Not Given DAILY [facility] Simethicone 80 mg 12/18/18 23:47 Mylicon - PO Q4H PRN GAS Home Medications Medication Instructions Recorded 19 Tablet 1 tab PO DAILY 11/28/18 ASSESSMENT AND PLAN: 28 year old female with episode of syncope/hypotension/tacycardia 6hrs s/p C- section with ongoing PV bleeding. Rapid Response called and patient transferred to ICU. 1. Acute Blood Loss Anemia secondary to Utrine Bleed s/p s/p Methergine by Obs US - no retained POC, post- uterus. H/H still on low side s/p transfusion 2 units PRBCs. H.H 7.9/24. No further bleding. Will monitor H.H and transfuse further units as necessary. Will need iron supplementation. Hemodynamically stable, symptoms resolved. Will discuss with Obstetrics re: transfer out of ICU back to maternity 2. Syncope sec to acute blood loss Neurologically intact, no evidence of neuro deficit or acute intraranial process 3. s/p - management as per Obstetrics DVT PX -SCDs. Heparin held due to PV bleeding
[2018-12-19 16:00] LABS: BASO % 0.1 % (0-2.0); EOS % 0.1 % (0-4.5); HEMATOCRIT 22.2 % (32.4-45.2); HEMOGLOBIN 7.2 GM/dL (10.7-15.3); LYMPH % 11.1 % (8-40); MCH 29.2 pg (25.7-33.7); MCHC 32.5 g/dl (32.0-36.0); MEAN PLT VOLUME 9.8 fl (7.5-11.1); MONO % 6.4 % (3.8-10.2); NEUT % 82.3 % (42.8-82.8); PLATELET COUNT 110 K/MM3 (134-434); RBC 2.47 M/mm3 (3.60-5.2); RDW 14.9 % (11.6-15.6)
[2018-12-19] MEDS: ACETAMINOPHEN 325 MG TABLET (FP) PO PRN (16:19)
[2018-12-19 16:23] LABS: BLOOD UREA NITROGEN 11.2 mg/dL (7-18); CREATININE 0.6 mg/dL (0.55-1.3)
[2018-12-19 16:26] LABS: CALCIUM 6.9 mg/dL (8.5-10.1)
[2018-12-19] MEDS: IBUPROFEN 800 MG/8 ML IJ IVPB PRN (18:11)
[2018-12-19] MEDS: METHYLERGONOVINE MALEATE 0.2 MG TABLET (FP) PO SCH ×2 (18:24→23:03)
[2018-12-19 22:20] LABS: BASO % 0.1 % (0-2.0); EOS % 0.1 % (0-4.5); HEMATOCRIT 21.4 % (32.4-45.2); LYMPH % 12.6 % (8-40); MCH 29.5 pg (25.7-33.7); MCHC 32.8 g/dl (32.0-36.0); MEAN CELL VOLUME 89.9 fl (80-96); MEAN PLT VOLUME 9.1 fl (7.5-11.1); MONO % 6.5 % (3.8-10.2); NEUT % 80.7 % (42.8-82.8); PLATELET COUNT 117 K/MM3 (134-434); RBC 2.38 M/mm3 (3.60-5.2); RDW 15.7 % (11.6-15.6); WHITE BLOOD COUNT 14.1 K/mm3 (4.0-10.0)
[2018-12-19] MEDS ORDERED: BISACODYL 10 MG SUPP.RECT RC PRN (23:48)
[2018-12-20] MEDS: IBUPROFEN 800 MG/8 ML IJ IVPB PRN (02:09)
[2018-12-20] MEDS: METHYLERGONOVINE MALEATE 0.2 MG TABLET (FP) PO SCH ×2 (05:21→10:32)
[2018-12-20] MEDS: ACETAMINOPHEN 325 MG TABLET (FP) PO PRN ×3 (08:28→19:30)
--- NOTE | 2018-12-20 08:39 | PN ---
Physical Exam: SUBJECTIVE: Patient seen and examined. No acute events overnight. Pt has mild SPARROW. Denies chest pain, palpitations, dizziness or lightheadedness. Mild abd tenderness around surgical incision. OBJECTIVE: Vital Signs Period Temp Pulse Resp BP Sys/Arnold Pulse Ox Last 24 Hr 98.2 F-99.3 F 83-109 18-27 109-118/56-66 100 GENERAL: The patient is awake, alert, and fully oriented, in no acute distress. HEAD: Normal with no signs of trauma. EYES: PERRL, extraocular movements intact, sclera anicteric, conjunctiva clear. No ptosis. ENT: Ears normal, nares patent, oropharynx clear without exudates, moist mucous membranes. NECK: Trachea midline, full range of motion, supple. LUNGS: Breath sounds equal, clear to auscultation bilaterally, no wheezes, no crackles, no accessory muscle use. HEART: Tachycardic, regular rhythm, S1, S2 without murmur, rub or gallop. ABDOMEN: Soft, tenderness in lower abdomen surround surgical incision. Normoactive bowel sounds, no guarding. Surgical dressing clean, dry, intact. GENITOURINARY: Vaginal bleeding scant, pads in place. EXTREMITIES: 2+ pulses, warm, well-perfused, no edema. NEUROLOGICAL: Cranial nerves II through XII grossly intact. Normal speech, gait not observed. PSYCH: Normal mood, normal affect. SKIN: Warm, dry, normal turgor, no rashes or lesions noted Laboratory Results - last 24 hr CBC, BMP 12/19/18 21:20 12/19/18 15:00 Active Medications Acetaminophen (Tylenol -) 650 mg PO Q4H PRN PRN Reason: FEVER Last Admin: 12/20/18 08:28 Dose: 650 mg Bisacodyl (Dulcolax Suppository -) 10 mg RC PRN PRN PRN Reason: CONSTIPATION Diphenhydramine HCl (Benadryl Injection -) 25 mg IVPUSH Q4H PRN PRN Reason: Pruritis Last Admin: 12/20/18 08:29 Dose: 25 mg Fentanyl/Bupivacaine/Sodium Chlor (Bupivicaine 0.125%/Fentanyl 2mcg/Ml [facility]) 50 ml EP [facility]; Protocol Last Admin: 12/18/18 14:30 Dose: 50 ml Oxytocin/Sodium Chloride (Normal Saline+20 Units Oxytocin -) 20 unit in 1,000 mls @ 125 mls/hr IV [facility]IR [facility] Ibuprofen (Motrin -) 600 mg PO Q4H PRN PRN Reason: PAIN LEVEL 1 - 3 Ibuprofen (Caldolor Injection -) 800 mg IVPB Q8H PRN PRN Reason: PAIN LEVEL 6-10 Last Admin: 12/20/18 02:09 Dose: 800 mg Methylergonovine Maleate (Methergine -) 0.2 mg PO Q6H [facility] Stop: 12/20/18 10:01 Last Admin: 12/20/18 05:21 Dose: 0.2 mg Naloxone HCl (Narcan -) 0.4 mg IVPUSH PRN PRN PRN Reason: Sedation Ondansetron HCl (Zofran Injection) 4 mg IVPUSH Q4H PRN PRN Reason: NAUSEA Oxycodone HCl (Roxicodone -) 5 mg PO Q4H PRN PRN Reason: PAIN LEVEL 4 - 6 Oxycodone HCl (Roxicodone -) 10 mg PO Q4H PRN PRN Reason: PAIN LEVEL 7 - 10 Multivit/Folic Acid/Iron ( Vitamins (Sjr) -) 1 tab PO DAILY [facility] Last Admin: 12/19/18 10:00 Dose: Not Given Simethicone (Mylicon -) 80 mg PO Q4H PRN PRN Reason: GAS ASSESSMENT/PLAN: Patient is a 28 year old female with no significant PMH who presents s/p emergency x1 day ago. Surgery had no complications, delivered a healthy baby. EBL 700ccs. #Anemia 2/2 hemorrhage Pt is hemodynamically stable s/p 2PRBCs, IVF bolus Hgb 7.9 s/p transfusion. This am, repeat Hgb 7.0. Recommend addition unit of PRBC #Vasovagal syncope 2/2 acute blood loss Neurologically intact, no evidence of neuro deficit or acute intracranial process #DVT ppx SCDs #FEN Regular diet IVF NS boluses #Dispo Transferred back to maternity. Medically cleared. Thank you for the consultation Visit type - Emergency Visit Emergency Visit: No - New Patient This patient is new to me today: No - Critical Care Critical Care patient: No ATTENDING PHYSICIAN STATEMENT I saw and evaluated the patient. I reviewed the resident's note and discussed the case with the resident. I agree with the resident's findings and plan as documented. SUBJECTIVE: OBJECTIVE: ASSESSMENT AND PLAN:
[2018-12-20 09:08] LABS: HEMATOCRIT 21.5 % (32.4-45.2); HEMOGLOBIN 7.1 GM/dL (10.7-15.3); MCH 29.5 pg (25.7-33.7); MCHC 33.2 g/dl (32.0-36.0); PLATELET COUNT 135 K/MM3 (134-434); RBC 2.42 M/mm3 (3.60-5.2); RDW 15.5 % (11.6-15.6); WHITE BLOOD COUNT 14.7 K/mm3 (4.0-10.0)
[2018-12-20 09:29] LABS: BLOOD UREA NITROGEN 8.4 mg/dL (7-18); CALCIUM 7.4 mg/dL (8.5-10.1); CREATININE 0.6 mg/dL (0.55-1.3); POTASSIUM 3.7 mmol/L (3.5-5.1)
[2018-12-20] MEDS: PRENATAL VITAMINS W/ FOLIC ACID TABLET (FP) PO SCH (10:32)
--- NOTE | 2018-12-20 11:26 | PN ---
Teaching Attending Note Name of Resident: Alba Cassidy ATTENDING PHYSICIAN STATEMENT I saw and evaluated the patient. I reviewed the resident's note and discussed the case with the resident. I agree with the resident's findings and plan as documented. SUBJECTIVE: Feels well. Lightheadedness resolved. No CP/palpitations. No chest pain/palpitations. Minimal further PV bleeding. OBJECTIVE: Afebrile, Hemodynamically Stable. Last Vital Signs Temp Pulse Resp BP Pulse Ox 98.1 F 105 H 20 114/63 100 12/20/18 10:31 12/20/18 10:00 12/20/18 10:00 12/20/18 10:00 12/19/18 09:00 Heart - S1, S2, mild tachycardia Lungs - clear to auscultation Abdomen - Soft, post- abdomen, mild tenderness, incision dressed. Bowel Sounds normal. Extremities - no edema, no calf tenderness. Laboratory Results - last 24 hr 12/18/18 12/19/18 12/19/18 11:43 12:07 15:00 WBC 16.8 H 15.0 H RBC 2.69 L 2.47 L Hgb 7.9 L 7.2 L Hct 24.4 L 22.2 L MCV 90.8 90.0 MCH 29.3 29.2 MCHC 32.3 32.5 RDW 14.9 14.9 Plt Count 121 L D 110 L MPV 9.4 9.8 Absolute Neuts (auto) 12.3 H Neutrophils % 82.3 Lymphocytes % 11.1 D Monocytes % 6.4 Eosinophils % 0.1 D Basophils % 0.1 Nucleated RBC % 0 Sodium Potassium Chloride Carbon Dioxide Anion Gap BUN Creatinine Est GFR (CKD-EPI)AfAm Est GFR (CKD-EPI)NonAf Random Glucose Lactic Acid Calcium Crossmatch See Detail 12/19/18 12/19/18 12/20/18 15:00 21:20 08:38 WBC 14.1 H 14.7 H RBC 2.38 L 2.42 L Hgb 7.0 L 7.1 L Hct 21.4 L 21.5 L MCV 89.9 89.0 MCH 29.5 29.5 MCHC 32.8 33.2 RDW 15.7 H 15.5 Plt Count 117 L 135 MPV 9.1 9.0 Absolute Neuts (auto) 11.4 H Neutrophils % 80.7 Lymphocytes % 12.6 Monocytes % 6.5 Eosinophils % 0.1 Basophils % 0.1 Nucleated RBC % 0 Sodium 142 Potassium 4.0 Chloride 112 H Carbon Dioxide 22 Anion Gap 9 BUN 11.2 Creatinine 0.6 Est GFR (CKD-EPI)AfAm 144.78 Est GFR (CKD-EPI)NonAf 124.92 Random Glucose 73 L Lactic Acid Calcium 6.9 L* Crossmatch 12/20/18 12/20/18 08:38 08:38 WBC RBC Hgb Hct MCV MCH MCHC RDW Plt Count MPV Absolute Neuts (auto) Neutrophils % Lymphocytes % Monocytes % Eosinophils % Basophils % Nucleated RBC % Sodium 143 Potassium 3.7 Chloride 113 H Carbon Dioxide 22 Anion Gap 8 BUN 8.4 Creatinine 0.6 Est GFR (CKD-EPI)AfAm 144.78 Est GFR (CKD-EPI)NonAf 124.92 Random Glucose 76 Lactic Acid 1.0 Calcium 7.4 L Crossmatch Current Medications Generic Name Dose Route Start Last Admin Trade Name Freq PRN Reason Stop Dose Admin Acetaminophen 650 mg 12/18/18 23:47 12/20/18 08:28 Tylenol - PO 650 mg Q4H PRN Administration FEVER Bisacodyl 10 mg 12/19/18 23:48 Dulcolax Suppository - RC PRN PRN CONSTIPATION Diphenhydramine HCl 25 mg 12/18/18 23:40 12/20/18 08:29 Benadryl Injection - IVPUSH 25 mg Q4H PRN Administration Pruritis Fentanyl/Bupivacaine/Sodium Chlor 50 ml 12/18/18 15:00 12/18/18 14:30 Bupivicaine 0.125%/Fentanyl 2mcg/Ml Pcea EP 50 ml ASDIR MARLEN Administration Protocol Oxytocin/Sodium Chloride 20 unit in 1,000 mls @ 125 mls/hr 12/19/18 18:30 Normal Saline+20 Units Oxytocin - IV ASDIR MARLEN Ibuprofen 600 mg 12/18/18 23:47 Motrin - PO Q4H PRN PAIN LEVEL 1 - 3 Ibuprofen 800 mg 12/18/18 23:47 12/20/18 02:09 Caldolor Injection - IVPB 800 mg Q8H PRN Administration PAIN LEVEL 6-10 Naloxone HCl 0.4 mg 12/18/18 14:51 Narcan - IVPUSH PRN PRN Sedation Ondansetron HCl 4 mg 12/18/18 23:40 Zofran Injection IVPUSH Q4H PRN NAUSEA Oxycodone HCl 5 mg 12/18/18 23:47 Roxicodone - PO Q4H PRN PAIN LEVEL 4 - 6 Oxycodone HCl 10 mg 12/18/18 23:47 Roxicodone - PO Q4H PRN PAIN LEVEL 7 - 10 Multivit/Folic Acid/Iron 1 tab 12/19/18 10:00 12/20/18 10:32 Vitamins (Sjr) - PO 1 tab DAILY MARLEN Administration Simethicone 80 mg 12/18/18 23:47 Mylicon - PO Q4H PRN GAS Home Medications Medication Instructions Recorded 19 Tablet 1 tab PO DAILY 11/28/18 ASSESSMENT AND PLAN: 28 year old female with episode of syncope/hypotension/tacycardia 6 hrs s/p C- section with ongoing PV bleeding. Rapid Response called and patient transferred to ICU. 1. Acute Blood Loss Anemia secondary to Uterine Bleed s/p s/p Methergine by Obs US - no retained POC, post- uterus. H/H still on low side s/p transfusion 2 units PRBCs. H.H 7.03/13. Minimal further bleeding. Given mild tachycardia and some residual PV blood loss, recommend transfusion of another unit of PRBCs and Fe supplementation on discharge. 2. Syncope sec to acute blood loss Neurologically intact, no evidence of neuro deficit or acute intracranial process Currently asymptomatic. 3. s/p - management as per Obstetrics DVT PX -SCDs. Heparin held due to PV bleeding Thank you for the kind consideration of this consultation. Please call if any questions or developments.
[2018-12-20] MEDS: IBUPROFEN 600 MG TABLET (FP) PO PRN ×2 (15:24→19:29)
[2018-12-20] MEDS: OXYTOCIN 20 UNITS in 0.9% NS 20 UNIT/1,000 ML INFUS.BAG IV SCH ×2 (19:18→19:19)
[2018-12-20] MEDS: FENTANYL/BUPIVACAINE/NS/PF - PCEA - 50 ML DISP.SYRIN EP SCH (19:18)
--- NOTE | 2018-12-20 19:24 | PN ---
Post Note - Post Date of Delivery: 12/18/18 Post Day: 2 Vital Signs: Vital Signs - 24 hr 12/19/18 12/19/18 12/19/18 20:00 21:00 22:00 Temperature 98.7 F Pulse Rate 94 H Respiratory 18 18 18 Rate Blood Pressure 110/56 L 12/19/18 12/20/18 12/20/18 23:00 00:00 01:00 Temperature Pulse Rate Respiratory 18 18 18 Rate Blood Pressure 12/20/18 12/20/18 12/20/18 02:00 03:00 04:00 Temperature 99.3 F Pulse Rate 103 H Respiratory 18 18 18 Rate Blood Pressure 111/64 12/20/18 12/20/18 12/20/18 05:00 06:00 10:00 Temperature 98.2 F 99.7 F H Pulse Rate 83 105 H Respiratory 18 18 20 Rate Blood Pressure 115/66 114/63 12/20/18 12/20/18 12/20/18 10:31 13:34 17:26 Temperature 98.1 F 98.3 F 99.4 F Pulse Rate 109 H 110 H Respiratory 18 18 Rate Blood Pressure 107/51 L 114/85 Labs: Laboratory Results - last 24 hr 12/18/18 12/19/18 12/20/18 11:43 21:20 08:38 WBC 14.1 H 14.7 H RBC 2.38 L 2.42 L Hgb 7.0 L 7.1 L Hct 21.4 L 21.5 L MCV 89.9 89.0 MCH 29.5 29.5 MCHC 32.8 33.2 RDW 15.7 H 15.5 Plt Count 117 L 135 MPV 9.1 9.0 Absolute Neuts (auto) 11.4 H Neutrophils % 80.7 Lymphocytes % 12.6 Monocytes % 6.5 Eosinophils % 0.1 Basophils % 0.1 Nucleated RBC % 0 Sodium Potassium Chloride Carbon Dioxide Anion Gap BUN Creatinine Est GFR (CKD-EPI)AfAm Est GFR (CKD-EPI)NonAf Random Glucose Lactic Acid Calcium Blood Type O POSITIVE Antibody Screen Negative Crossmatch See Detail 12/20/18 12/20/18 08:38 08:38 WBC RBC Hgb Hct MCV MCH MCHC RDW Plt Count MPV Absolute Neuts (auto) Neutrophils % Lymphocytes % Monocytes % Eosinophils % Basophils % Nucleated RBC % Sodium 143 Potassium 3.7 Chloride 113 H Carbon Dioxide 22 Anion Gap 8 BUN 8.4 Creatinine 0.6 Est GFR (CKD-EPI)AfAm 144.78 Est GFR (CKD-EPI)NonAf 124.92 Random Glucose 76 Lactic Acid 1.0 Calcium 7.4 L Blood Type Antibody Screen Crossmatch - Subjective Subjective: No Complaints, Other (Pt seen but was in bathroom this am No complaints of dizziness) - Objective Afebrile: Yes Extremities: Non-tender - Assessment/Plan (1) Anemia Assessment: Other (POst op CS hemorrhage secondary to blood loss Anemia) Plan: Routine Care (3) hemorrhage Plan: Routine Care
--- NOTE | 2018-12-20 23:25 | PN ---
Post Progress Note - Subjective Subjective: Pt seen/evaluated this afternoon. Currently on 3rd unit PRBC. Tolerating diet , ambulating, voiding, passing flatus. No complaints. Type of Delivery: Primary C/S Vital Signs: Vital Signs Temperature 99.4 F 12/20/18 17:26 Pulse Rate 110 H 12/20/18 17:26 Respiratory Rate 18 12/20/18 17:26 Blood Pressure 114/85 12/20/18 17:26 O2 Sat by Pulse Oximetry (%) 100 12/19/18 09:00 Uterus: Yes: Fundus Firm Incision: Yes: Sutures intact Abdomen/GI: Yes: Abdomen soft, Passing flatus, Tolerating PO. No: Abdominal Distention, Tender Lochia: Yes: Rubra Lochia, amount: Moderate Extremities: Yes: Calves non-tender Perineum: Yes: Intact Activity: Ambulating - Labs Labs: CBC WBC 14.7 K/mm3 (4.0-10.0) H 12/20/18 08:38 RBC 2.42 M/mm3 (3.60-5.2) L 12/20/18 08:38 Hgb 7.1 GM/dL (10.7-15.3) L 12/20/18 08:38 Hct 21.5 % (32.4-45.2) L 12/20/18 08:38 MCV 89.0 fl (80-96) 12/20/18 08:38 MCH 29.5 pg (25.7-33.7) 12/20/18 08:38 MCHC 33.2 g/dl (32.0-36.0) 12/20/18 08:38 RDW 15.5 % (11.6-15.6) 12/20/18 08:38 Plt Count 135 K/MM3 (134-434) 12/20/18 08:38 MPV 9.0 fl (7.5-11.1) 12/20/18 08:38 Absolute Neuts (auto) 11.4 K/mm3 (1.5-8.0) H 12/19/18 21:20 Neutrophils % 80.7 % (42.8-82.8) 12/19/18 21:20 Lymphocytes % 12.6 % (8-40) 12/19/18 21:20 Monocytes % 6.5 % (3.8-10.2) 12/19/18 21:20 Eosinophils % 0.1 % (0-4.5) 12/19/18 21:20 Basophils % 0.1 % (0-2.0) 12/19/18 21:20 Nucleated RBC % 0 % (0-0) 12/19/18 21:20 Problem List - Problems (1) Active labor at term Code(s): BVD6302 - (2) Anemia Code(s): D64.9 - ANEMIA, UNSPECIFIED (3) delivery delivered Code(s): O82 - ENCOUNTER FOR DELIVERY WITHOUT INDICATION (4) hemorrhage Code(s): O72.1 - OTHER IMMEDIATE HEMORRHAGE Assessment/Plan 28 y/o POD#2 s/p primary c section for recurrent variables with subsequent PPH Afebrile intermittently tachycardic, still anemic, pt asymptomatic on 3rd unit PRBC plan for repeat CBC after 3rd unit PRBC pt with edema in hands, likely due to fluids/blood, to consider a dose of lasix in the a.m. if pt uncomfortable regular diet encourage ambulation
[2018-12-20 23:58] LABS: BASO % 0.5 % (0-2.0); EOS % 0.3 % (0-4.5); HEMATOCRIT 22.5 % (32.4-45.2); HEMOGLOBIN 7.3 GM/dL (10.7-15.3); LYMPH % 13.3 % (8-40); MCH 29.3 pg (25.7-33.7); MCHC 32.5 g/dl (32.0-36.0); MEAN CELL VOLUME 90.1 fl (80-96); MEAN PLT VOLUME 8.7 fl (7.5-11.1); MONO % 6.9 % (3.8-10.2); PLATELET COUNT 139 K/MM3 (134-434); RBC 2.49 M/mm3 (3.60-5.2); RDW 15.4 % (11.6-15.6); WHITE BLOOD COUNT 14.8 K/mm3 (4.0-10.0)
[2018-12-21 08:44] LABS: BASO % 0.3 % (0-2.0); EOS % 0.5 % (0-4.5); HEMOGLOBIN 7.8 GM/dL (10.7-15.3); LYMPH % 11.5 % (8-40); MCH 30.5 pg (25.7-33.7); MEAN CELL VOLUME 89.5 fl (80-96); MEAN PLT VOLUME 8.5 fl (7.5-11.1); MONO % 4.5 % (3.8-10.2); NEUT % 83.2 % (42.8-82.8); PLATELET COUNT 160 K/MM3 (134-434); RBC 2.57 M/mm3 (3.60-5.2); RDW 15.4 % (11.6-15.6); WHITE BLOOD COUNT 13.9 K/mm3 (4.0-10.0)
[2018-12-21] MEDS: PRENATAL VITAMINS W/ FOLIC ACID TABLET (FP) PO SCH (09:45)
[2018-12-21 14:27] VITALS: BP 118/76; PULSE 87; TEMP 98.7
--- NOTE | 2018-12-26 17:16 | PATH ---
Surgical Pathology Report Patient Name: SAL KEY Med. Rec. #: [id number] /Age/Gender: 1990 (Age: 28) / F Account: [id number] Location: [facility] OBS/MANAGER ARCHITECTURE Taken: 12/18/2018 Received: 12/19/2018 Reported: 12/26/2018 Physicians: Rafaela Thorne M.D. Specimen(s) Received PLACENTA Clinical History Primary , , 39 weeks in labor Failure to descend, recurrent variables, nonreassuring heart rate Final Diagnosis PLACENTA, SECTION: 434 G THIRD TRIMESTER PLACENTA WITH TRIVASCULAR UMBILICAL CORD, FOCAL INTRAPARENCHYMAL INFARCT (< 5% OF PLACENTAL SURFACE), AND MILD TO MODERATE ACUTE CHORIOAMNIONITIS. Electronically Signed Shilpi Cavazos M.D. Gross Description The specimen is received fresh labeled placenta and is a 434 gram, 16.5 x 11.5 x 2.4 cm. placenta with attached membranes and umbilical cord. The attached membranes are woody, translucent with focal opacities and insert marginally. The umbilical cord measures 30 cm. in length and averages 1.0 cm. in diameter. The cord inserts eccentrically, 1 cm. to the nearest margin. No true knots or strictures are identified. Cut surface of the umbilical cord reveals 3 vessels. The surface is morrow-blue with minimal fibrin deposition and appropriate caliber vessels. The maternal surface is red-brown, markedly fragmented and disrupted. Sectioning reveals a 1.7 cm in greatest dimension woody, firm, intraparenchymal lesion. The remaining placental parenchyma is red-brown and spongy. Tracer Lathe Set Up Operator sections are submitted in three cassettes as follows: 1-membrane roll and umbilical cord; 2-lesion; 5-[id number] section of placenta. 12/25/2018 [facility]12/25/2018
== END 2018-12-21 15:00 | disposition home or self-care (01) | DRG 540 ==
LOC: JDEL 10:55 → JLDR 11:25 → J3W 12-19 01:55 → JICU 12-19 05:29 → J3W 12-19 17:28 → JICU 12-19 17:36 → J3W 12-19 17:50
PROVIDERS: ADMIT Obstetrics & Gynecology; ATTEND Obstetrics & Gynecology
PROC: 10D00Z1 Extraction of Products of Conception, Low, Open Approach (ICD-10-PCS; principal; 2018-12-18)
PROC: 30233N1 Transfusion of Nonautologous Red Blood Cells into Peripheral Vein, Percutaneous Approach (ICD-10-PCS; 2018-12-19)
DX: O62.1 Secondary uterine inertia (principal); O76 Abnormality in fetal heart rate and rhythm complicating labor and delivery; O72.1 Other immediate postpartum hemorrhage; D62 Acute posthemorrhagic anemia; O90.89 Other complications of the puerperium, not elsewhere classified; R55 Syncope and collapse; Z3A.39 39 weeks gestation of pregnancy; Z37.0 Single live birth
CPT/HCPCS: 36415; 36430; 36511; 36600; 71045-TC-FY; 76856-TC; 80048; 80053; 82550; 82803; 83605; 84484; 85025; 85027; 85610; 85730; 86593; 86850; 86900; 86901; 86922; 88307-TC; 93005; 93010; J7030; P9038; P9058

== ENCOUNTER 2019-01-04 18:19 | Emergency (ER) | payer OTHER ==
[2019-01-04 18:26] VITALS: BP 107/56; PULSE 86; TEMP 97.7; BMI 29.6
--- NOTE | 2019-01-04 18:26 | PDOC ---
Rapid Medical Evaluation Time Seen by Provider: 01/04/19 18:21 Medical Evaluation: Allergies Allergy/AdvReac Type Severity Reaction Status Date / Time No Known Allergies Allergy Verified 12/18/18 11:34 01/04/19 18:23 I have performed a brief in-person evaluation of this patient. The patient presents with a chief complaint of: post delivery abd pain, headache Pertinent physical exam findings:stable and in NAD, non-focal I have ordered the following:labs The patient will proceed to the ED for further evaluation.
[2019-01-04 18:54] LABS: BASO % 0.5 % (0-2.0); EOS % 0.7 % (0-4.5); HEMATOCRIT 32.5 % (32.4-45.2); HEMOGLOBIN 10.5 GM/dL (10.7-15.3); LYMPH % 13.6 % (8-40); MCH 29.1 pg (25.7-33.7); MCHC 32.4 g/dl (32.0-36.0); MEAN CELL VOLUME 89.9 fl (80-96); MEAN PLT VOLUME 8.3 fl (7.5-11.1); MONO % 6.4 % (3.8-10.2); NEUT % 78.8 % (42.8-82.8); PLATELET COUNT 443 K/MM3 (134-434); RBC 3.61 M/mm3 (3.60-5.2); RDW 15.1 % (11.6-15.6)
[2019-01-04 18:58] LABS: EPI CELLS 3.1 /HPF (0-5/HPF); HYALINE CASTS 9 /lpf (0-8); PH,URINE 5.5 (5.0-8.0); URINE APPEARANCE CLOUDY; URINE BACTERIA 37.5 /hpf (NEGATIVE); URINE BILIRUBIN 1+ (NEGATIVE); URINE COLOR DK YELLOW; URINE GLUCOSE (UA) NEGATIVE (NEGATIVE); URINE KETONE TRACE (NEGATIVE); URINE LEUK ESTERASE 2+ (NEGATIVE); URINE NITRITE NEGATIVE (NEGATIVE); URINE PROTEIN 1+ (NEGATIVE); URINE RBC 14 /hpf (0-4); URINE UROBILINOGEN 0.2 mg/dL (0.2-1.0); URINE WBC 213 /hpf (0-5)
--- NOTE | 2019-01-04 19:08 | PDOC ---
History of Present Illness - General Chief Complaint: Pain, Acute Stated Complaint: ABDOMINAL PAIN Time Seen by Provider: 01/04/19 18:21 - History of Present Illness Initial Comments: 01/04/19 18:52 CHIEF COMPLAINT: abdominal pain and vaginal bleeding HISTORY OF PRESENT ILLNESS: 28 yo presents to ED with postop pain. Patient had a performed by Dr. Thorne on 12/18 and has had intermittent abdominal pain since. Patient describes the pain as a stabbing pain that comes and goes, and states she feels like "there's some places that are hard and then other parts that feel loose." She reports light vaginal discharge but states she is unconcerned about that as it has improved significantly since delivery. Patient is not . No recent travel or sick contacts. PAST MEDICAL HISTORY: Denies past medical history FAMILY HISTORY: Denies SOCIAL HISTORY: Denies tobacco, alcohol, illicit drug use. SURGICAL HISTORY: R cystectomy ALLERGIES: No known drug allergies REVIEW OF SYSTEMS General/Constitutional: Denies fever or chills. Denies weakness, weight change. HEENT: Denies change in vision. Denies ear pain or discharge. Denies sore throat. Cardiovascular: Denies chest pain or shortness of breath. Respiratory: Denies cough, wheezing, or hemoptysis. Gastrointestinal: Abdominal pain. Denies nausea, vomiting, diarrhea or constipation. Denies rectal bleeding. Genitourinary: Denies dysuria, frequency, or change in urination. Musculoskeletal: Denies joint or muscle swelling or pain. Denies neck or back pain. Skin and breasts: Denies rash or easy bruising. Neurologic: Denies headache, vertigo, loss of consciousness, or loss of sensation. Psychiatric: Denies depression or anxiety. PHYSICAL EXAM General Appearance: Well-appearing, appropriately dressed. No apparent distress , no intoxication. HEENT: EOMI, PERRLA, normal ENT inspection, normal voice, TMs normal, pharynx normal. No conjunctival pallor. No photophobia, scleral icterus. Neck: Supple. Trachea midline. No tenderness, rigidity, carotid bruit, stridor , lymphadenopathy, or thyromegaly. Respiratory/Chest: Lungs CTAB. No shortness of breath, chest tenderness, respiratory distress, accessory muscle use. No crackles, rales, rhonchi, stridor , wheezing, dullness Cardiovascular: RRR. S1, S2. No JVD, murmur, bradycardia, tachycardia. Vascular Pulses: Dorsalis-Pedis (R): 2+, Dorsalis-Pedis (L): 2+ Gastrointestinal/Abdominal: Transverse incision site intact without discharge or bleeding. Mild induration and tenderness to RLQ without erythema, warmth, or swelling. Normal bowel sounds. Abdomen soft, non-distended. No organomegaly, pulsatile mass, guarding, hernia, hepatomegaly, splenomegaly. Lymphatic: No adenopathy, tenderness. Musculoskeletal/Extremities: Normal inspection. FROM of all extremities, normal capillary refill. Pelvis Stable. No CVA tenderness. No tenderness to extremities, pedal edema, swelling, erythema or deformity. Integumentary: Appropriate color, dry, warm. No cyanosis, erythema, jaundice or rash Neurologic: proof coin collector II-XII intact. Fully oriented, alert. Appropriate mood/affect. Motor strength 5/5. No appreciable EOM palsy, facial droop or sensory deficit. Past History - Past Medical History Allergies/Adverse Reactions: Allergies Allergy/AdvReac Type Severity Reaction Status Date / Time No Known Allergies Allergy Verified 12/18/18 11:34 Home Medications: Ambulatory Orders Ferrous Sulfate [Feosol] 325 mg PO BID #60 tablet 12/21/18 Ibuprofen [Motrin -] 800 mg PO TID 01/04/19 Ketorolac Tromethamine [Toradol] 10 mg PO TID #21 tablet 01/04/19 95/Iron Fum/Folic/Dha [ + Dha Combo Pack] 1 tab PO DAILY Asthma: No Cancer: No Cardiac Disorders: No COPD: No Diabetes: No HTN: No Seizures: No Thyroid Disease: No - Surgical History Abdominal Surgery: Yes (RT OVARIAN CYST) - Immunization History Immunization Up to Date: No - Psycho Social/Smoking Cessation Hx Smoking History: Never smoked Have you smoked in the past 12 months: No Information on smoking cessation initiated: No Hx Alcohol Use: No Drug/Substance Use Hx: No Substance Use Type: None Hx Substance Use Treatment: No *Physical Exam - Vital Signs Last Vital Signs Temp Pulse Resp BP Pulse Ox 97.7 F 86 18 107/56 L 98 01/04/19 18:23 01/04/19 18:23 01/04/19 18:23 01/04/19 18:23 01/04/19 18:23 ED Treatment Course - LABORATORY CBC & Chemistry Diagram: 01/04/19 18:37 01/04/19 18:37 Medical Decision Making - Medical Decision Making 01/04/19 19:20 28 yo presents to ED with abdominal pain. -labs done in triage, wnl 01/04/19 19:21 Patient mildly anemic but greatly improved from 12/21, bloodwork otherwise wnl. Physical exam with low suspicion for adhesion or surgical wound infection. Likely post op pain, will treat with po Toradol. UA positive for UTI, will treat with Keflex. Discharge - Discharge Information Problems reviewed: Yes Clinical Impression/Diagnosis: Post-op pain Urinary tract infection Qualifiers: Urinary tract infection type: site unspecified Hematuria presence: without hematuria Qualified Code(s): N39.0 - Urinary tract infection, site not specified Condition: Stable Disposition: HOME - Admission No - Additional Discharge Information Prescriptions: Ketorolac Tromethamine [Toradol] 10 mg PO TID #21 tablet - Follow up/Referral Referrals: Meghann Ramírez MD [Staff Physician] - - Patient Discharge Instructions Patient Printed Discharge Instructions: DI for Postoperative Pain Additional Instructions: As discussed, please follow up with Dr. Ramírez's office for continued evaluation and management of your postoperative pain. If you develop worsening pain, fever, nausea, vomiting, diarrhea, or any new or worsening symptoms, please return to the ER. - Post Discharge Activity
[2019-01-04 19:21] LABS: ALBUMIN 3.2 g/dl (3.4-5.0); BILIRUBIN,TOTAL 0.3 mg/dL (0.2-1); BLOOD UREA NITROGEN 13.4 mg/dL (7-18); CALCIUM 8.7 mg/dL (8.5-10.1); CREATININE 0.7 mg/dL (0.55-1.3); POTASSIUM 3.8 mmol/L (3.5-5.1); TOT PROT 6.6 g/dl (6.4-8.2)
--- NOTE | 2019-01-04 23:10 | PDOC ---
*Physical Exam - Vital Signs Last Vital Signs Temp Pulse Resp BP Pulse Ox 97.7 F 86 18 107/56 L 98 01/04/19 18:23 01/04/19 18:23 01/04/19 18:23 01/04/19 18:23 01/04/19 18:23 ED Treatment Course - LABORATORY CBC & Chemistry Diagram: 01/04/19 18:37 01/04/19 18:37 - ADDITIONAL ORDERS Additional order review: Laboratory Results 01/04/19 01/04/19 18:37 18:37 Sodium 141 Potassium 3.8 Chloride 109 H Carbon Dioxide 27 Anion Gap 5 L BUN 13.4 Creatinine 0.7 Est GFR (CKD-EPI)AfAm 137.62 Est GFR (CKD-EPI)NonAf 118.74 Random Glucose 92 Calcium 8.7 Total Bilirubin 0.3 AST 14 L ALT 14 Alkaline Phosphatase 95 Total Protein 6.6 Albumin 3.2 L Urine Color Dk yellow Urine Appearance Cloudy Urine pH 5.5 Ur Specific [place] 1.036 H Urine Protein 1+ H Urine Glucose (UA) Negative Urine Ketones Trace H Urine Blood 3+ H Urine Nitrite Negative Urine Bilirubin 1+ H Urine Urobilinogen 0.2 Ur Leukocyte Esterase 2+ H Urine WBC (Auto) 213 Urine RBC (Auto) 14 Urine Casts (Auto) 9 U Epithel Cells (Auto) 3.1 Urine Bacteria (Auto) 37.5 01/04/19 18:37 RBC 3.61 MCV 89.9 MCHC 32.4 RDW 15.1 MPV 8.3 Neutrophils % 78.8 Lymphocytes % 13.6 Monocytes % 6.4 Eosinophils % 0.7 Basophils % 0.5 Medical Decision Making - Medical Decision Making 01/04/19 23:09 Case reviewed, agree with assessment and plan Discharge - Discharge Information Problems reviewed: Yes Clinical Impression/Diagnosis: Post-op pain Condition: Stable Disposition: HOME - Additional Discharge Information Prescriptions: Ketorolac Tromethamine [Toradol] 10 mg PO TID #21 tablet - Follow up/Referral Referrals: Meghann Ramírez MD [Staff Physician] - - Patient Discharge Instructions Patient Printed Discharge Instructions: DI for Postoperative Pain Additional Instructions: As discussed, please follow up with Dr. Ramírez's office for continued evaluation and management of your postoperative pain. If you develop worsening pain, fever, nausea, vomiting, diarrhea, or any new or worsening symptoms, please return to the ER. - Post Discharge Activity
== END 2019-01-04 20:45 | disposition home or self-care (01) ==
LOC: JER 18:19
DX: O90.89 Other complications of the puerperium, not elsewhere classified (principal); G89.18 Other acute postprocedural pain; O86.29 Other urinary tract infection following delivery; Z86.2 Personal history of diseases of the blood and blood-forming organs and certain disorders involving the immune mechanism
CPT/HCPCS: 36415; 80053; 81003; 85025; 87086; 99282-25

== ENCOUNTER 2019-01-21 13:48 | Inpatient (IN) | payer OTHER ==
[2019-01-21 14:03] VITALS: BMI 28.3
[2019-01-21] MEDS ORDERED: SODIUM CHLORIDE 0.9% 500 ML INFUS.BAG IV ONE (14:33)
--- NOTE | 2019-01-21 14:38 | PDOC ---
History of Present Illness - General Chief Complaint: Syncope/Near Syncope Stated Complaint: SYNCOPE Time Seen by Provider: 01/21/19 14:00 History Source: Patient, Family Exam Limitations: No Limitations - History of Present Illness Initial Comments: 01/22/19 13:38 HPI: 29F PMH recent 12/18/18 complicated by hemorrhage requiring PRBC BIBEMS after syncopal episode half hour before presentation. Pt felt warm, nauseated, and imbalanced while washing dishes, sat down and proceeded to LOC. Witnessed by significant other at bedside who states she was unresponsive for 3 minutes before waking up fully alert and oriented. Pt proceeded to have 2 more syncopal episodes, each for about 3 minutes. No head strike. Pt denies chest pain, palpitations, sob. Endorses poor appetite x1 month : states she did not eat or drink anything today. + recent surgery; - immobilization, recent travel, personal or fam hx VTE, OCP use. No personal or family cardiac hx. EMS states pt was hypotensive and tachycardic in the field; pt received 1L NS en route. Pt currently asymptomatic but states she is looks pale. No PCP - uses CNC SPECIALIST NKDA Surgeries - , removal of right ovarian cyst Denies tobacco Past History - Past Medical History Allergies/Adverse Reactions: Allergies Allergy/AdvReac Type Severity Reaction Status Date / Time No Known Allergies Allergy Verified 12/18/18 11:34 Home Medications: Ambulatory Orders Ibuprofen [Motrin -] 800 mg PO TID 01/04/19 95/Iron Fum/Folic/Dha [ + Dha Combo Pack] 1 tab PO DAILY Ferrous Sulfate [Feosol] 325 mg PO TID 01/21/19 Asthma: No Cancer: No Cardiac Disorders: No COPD: No Diabetes: No HTN: No Seizures: No Thyroid Disease: No - Surgical History Abdominal Surgery: Yes (RT OVARIAN CYST) - Immunization History Immunization Up to Date: No - Psycho Social/Smoking Cessation Hx Smoking History: Never smoked Have you smoked in the past 12 months: No Hx Alcohol Use: No Drug/Substance Use Hx: No Substance Use Type: None Hx Substance Use Treatment: No Review of Systems - Review of Systems Able to Perform ROS?: Yes Comments:: 01/22/19 13:38 ROS: CONSTITUTIONAL: Denies F / C HEENT: Endorses lightheadedness (since resolved). Denies headache, changes in vision / hearing, diplopia, blurry vision. RESP: Denies SOB CARD: Denies chest pain, palpitations GI: Endorses loose stools after taking iron pills. Endorses poor PO intake. Endorses nausea (since resolved). Denies V / D, abdominal pain, bloody stool, inability to tolerate PO : Denies dysuria, hematuria, frequency. Denies vaginal bleeding. NEURO: Denies numbness, tingling, weakness Is the patient limited Japanese proficient: No *Physical Exam - Vital Signs Last Vital Signs Temp Pulse Resp BP Pulse Ox 97.5 F L 90 19 98/55 L 100 01/21/19 13:51 01/21/19 13:51 01/21/19 13:51 01/21/19 13:51 01/21/19 13:51 - Physical Exam 01/22/19 13:39 PE: VS: HR 80s at bedside; SaO2 100% RA GEN: Well developed, NAD, comfortable. AAOx3 HEENT: NC/AT, CN II-XII intact, EOMI, PERRLA. +conjunctival pallor. No facial asymmetry. Moist mucous membranes. Normal voice. Supple neck, FROM, no TTP midline. CV: S1/S2, RRR, no m/r/g LUNG: CTAB, no wheezes, crackles, rales, rhonchi. GI: +TTP RLQ (pt states this is since surgery and unchanged); soft, nd, +BS, no guarding, no rebound. No masses. Neg CVAT b/l. EXTREMITIES: No LE edema. No obvious deformities of all extremities. SKIN: warm, dry, normal turgor PSYCH: normal mood and affect NEURO: Moving all extremities well. 5/5 UE, LE strength. Symmetric sensation. ED Treatment Course - LABORATORY CBC & Chemistry Diagram: 01/22/19 05:30 01/22/19 05:30 - RADIOLOGY Radiology Studies Ordered: Category Date Time Status CHEST X-RAY PORTABLE* [RAD] Stat Radiology 01/21/19 14:32 Ordered Medical Decision Making - Medical Decision Making 01/21/19 14:34 MDM: 29F recent (12/18/18) complicated by hemorrhage requiring pRBC BIBEMS for syncope w/ prodrome of nausea, warmth, and imbalance. EMS found pt hypotensive and tachycardic on field. Conjunctival pallor on exam. DDX - likely syncope; eval for arrhythmia, lytes, anemia, hypovolemia; considering PE given recent but less likely due to lack of sob and pt currently asymptomatic - cbc, cmp, cardiac, bnp, preg - recent coag studies done; unlikely interval development of coagulopathy - cxr - ekg - fluids (s/p 1L NS en route) 01/21/19 15:32 labs reviewed drop in hgb from 10.5 (01/04/19) to 7.3 will evaluate for possible causes of blood loss (e.g., hemorrhoidal bleed, GI bleed, abscess, hematoma) - admit - pRBC - CT A/P - FOBT 01/21/19 15:55 RECTAL: Two nonthrombosed hemorrhoids present, no active bleeding or discharge from anus. Normal sphincter tone. No masses or nodules of the rectal vault palpated. No fecal impaction. No blood but dark brown stool on glove. 01/21/19 16:07 FOBT + EKG 01/21/19 15:19 HR 85 LA 124 QRS 84 QTc 483 NSR f/u CT results 01/21/19 16:39 Pt is consented for blood. f/u CT results 01/21/19 18:04 CT IOC Cystic mass in the right lower quadrant concerning for abscess adjacent to a slightly prominent appendix with appendicolith. Early appendicitis with abscess may be present. CNC SPECIALIST c/s Gen Surg c/s 01/21/19 18:18 Discussed patient w/ Dr. Aguilar (surgeon travel information center supervisor): CT report suspicious for ryan-appendicitis and appendiceal abscess. Given the recent , he would treat medically. Recommends CNC SPECIALIST and IR. Recommends Zosyn for empiric coverage. NPO. Will see on following day. - IR c/s - f/u OB c/s - Zosyn - Protonix for GI PPX in case of GIB - NPO 01/21/19 19:12 Endorsed to admitting team Admitted med/surg ED team discussed w/ SERVICE CAPTAIN: will consult, pelvic US, thinks sx most likely due to appendix Patient was signed out to Dr. Goldstein // ADMITTED Discharge - Discharge Information Problems reviewed: Yes Clinical Impression/Diagnosis: Symptomatic anemia, Abdominal cyst Syncope Qualifiers: Syncope type: unspecified Qualified Code(s): R55 - Syncope and collapse Condition: Guarded - Admission Yes - Follow up/Referral - Patient Discharge Instructions - Post Discharge Activity
[2019-01-21 14:57] LABS: BASO % 0.4 % (0-2.0); EOS % 0.5 % (0-4.5); HEMATOCRIT 22.8 % (32.4-45.2); HEMOGLOBIN 7.3 GM/dL (10.7-15.3); LYMPH % 18.4 % (8-40); MCH 28.6 pg (25.7-33.7); MCHC 31.8 g/dl (32.0-36.0); MEAN CELL VOLUME 90.1 fl (80-96); MEAN PLT VOLUME 8.9 fl (7.5-11.1); MONO % 3.9 % (3.8-10.2); NEUT % 76.8 % (42.8-82.8); PLATELET COUNT 244 K/MM3 (134-434); RBC 2.53 M/mm3 (3.60-5.2); RDW 16.2 % (11.6-15.6); WHITE BLOOD COUNT 10.7 K/mm3 (4.0-10.0)
[2019-01-21 15:19] LABS: ALBUMIN 2.9 g/dl (3.4-5.0); ALK PHOS 57 U/L (45-117); ANION GAP 8 MMOL/L (8-16); BILIRUBIN,TOTAL 0.1 mg/dL (0.2-1); BLOOD UREA NITROGEN 21.2 mg/dL (7-18); CALCIUM 7.5 mg/dL (8.5-10.1); CHLORIDE 114 mmol/L (98-107); CO2 24 mmol/L (21-32); CREATININE 0.6 mg/dL (0.55-1.3); GLUCOSE,RANDOM 88 mg/dL (74-106); POTASSIUM 4.1 mmol/L (3.5-5.1); SGOT/AST 8 U/L (15-37); SGPT/ALT 15 U/L (13-61); SODIUM 145 mmol/L (136-145); TOT PROT 5.5 g/dl (6.4-8.2)
--- NOTE | 2019-01-21 15:58 | PDOC ---
Documentation entered by Mariajose Saba SCRIBE, acting as scribe for Evan Hernandez MD. Evan Hernandez MD: This documentation has been prepared by the Wandy barbosa Joy, SCRIBE, under my direction and personally reviewed by me in its entirety. I confirm that the documentation accurately reflects all work, treatment, procedures, and medical decision making performed by me. Attending Attestation - Resident Resident Name: Tyrone Valdes - ED Attending Attestation I have performed the following: I have examined & evaluated the patient, The case was reviewed & discussed with the resident, I agree w/resident's findings & plan, Exceptions are as noted - HPI HPI: 01/21/19 15:20 The patient is a 29 year old female, A0 with significant past medical history of (Dr. Thorne, 12/18) complicated by hemorrhage requiring blood transfusion, who presents to the ED with multiple episodes of syncope earlier today. As per patient, she was washing dishes and began to feel nausea, warmth, fatigue, and felt like she was going to pass out. She went to lie down, and was witnessed to become pale and pass out for 2-3 mins per her partner. After waking up via stimulation from significant other, and attempting to sit up, patient had another episode of syncope followed by a third after attempting to sit up once again. As per significant other, each episode lasted 2 -3 minutes. No falls or trauma as she was seated and supported by her partner throughout. Pt was not confused after LOC. No tongue biting or urine incontinence. Patient states she is currently asymptomatic. Patient endorses poor appetite for x1 month, is currently not and did not eat or drink today. She also reports dark stools but states she is on iron supplementation. On ROS, she reports RLQ pain since the . EMS states patient was hypotensive to 80s/50s and tachycardic to 106 in the field and received 1L NS en route. Not on hormone therapy, no cardiac family history, no family history or personal history of VTE. The patient denies chest pain, shortness of breath, headache, focal weakness/ numbness, head strike, palpitations. Denies fever, chills, nausea, vomiting, diarrhea and constipation. Denies dysuria, frequency, urgency and hematuria. Allergies: NKA Surgical History: ,removal of right ovarian cyst Social History: Nonsmoker, no ETOH use. PCP: Dr. Shilpi Carey - Physicial Exam PE: 01/21/19 15:22 Agree with resident exam - Medical Decision Making 01/21/19 15:48 29-year-old female presents the emergency department with 3 episodes of syncope preceded by prodrome of nausea, lightheadedness. Patient tachycardic and hypotensive in the field, with improvement of blood pressure with 1 L of NS in route to the emergency department. On exam patient appears pale and has right lower quadrant tenderness which he states has been present since the . wound appears clean dry and intact. Labs thus far remarkable for hemoglobin drop from 10 to 7. MCV is within normal limits. Concern for possible bleed, will perform rectal exam. Given right lower quadrant pain will also obtain a CT scan of the abdomen and pelvis to rule out any post section hematoma. Will transfuse 1 unit PRBC, anticipate admission. 01/21/19 16:30 CTAP pending Case signed out to Dr. Arechiga for further mgmt Heart Score/ECG Review #1 01/21/19 15:57 Twelve-lead EKG was performed and reviewed by me. Normal sinus rhythm, rate 85. Normal axis and intervals. No ST elevations or T wave inversions.
[2019-01-21] MEDS ORDERED: PIPERACILLIN/TAZOB 3.375 GM 3.375 GM in DEXTROSE 5%-WATER - 50 ML IVPB ONE (18:18)
[2019-01-21] MEDS ORDERED: PANTOPRAZOLE SODIUM 40 MG VIAL IVPUSH ONE (18:21)
--- NOTE | 2019-01-21 19:19 | PDOC ---
*Physical Exam - Vital Signs Last Vital Signs Temp Pulse Resp BP Pulse Ox 98.3 F 86 20 109/56 L 98 01/21/19 18:02 01/21/19 18:02 01/21/19 18:02 01/21/19 18:02 01/21/19 18:02 ED Treatment Course - LABORATORY CBC & Chemistry Diagram: 01/21/19 14:45 01/21/19 14:45 - ADDITIONAL ORDERS Additional order review: Laboratory Results 01/21/19 01/21/19 01/21/19 15:37 14:45 14:45 Sodium Potassium Chloride Carbon Dioxide Anion Gap BUN Creatinine Est GFR (CKD-EPI)AfAm Est GFR (CKD-EPI)NonAf Random Glucose Calcium Total Bilirubin AST ALT Alkaline Phosphatase Creatine Kinase Troponin I B-Natriuretic Peptide 7.5 Total Protein Albumin Serum , Qual Negative Stool Occult Blood Positive Blood Type Antibody Screen Crossmatch 01/21/19 01/21/19 14:45 14:45 Sodium 145 Potassium 4.1 Chloride 114 H Carbon Dioxide 24 Anion Gap 8 BUN 21.2 H Creatinine 0.6 Est GFR (CKD-EPI)AfAm 143.77 Est GFR (CKD-EPI)NonAf 124.04 Random Glucose 88 Calcium 7.5 L Total Bilirubin 0.1 L AST 8 L ALT 15 Alkaline Phosphatase 57 Creatine Kinase 37 Troponin I < 0.02 B-Natriuretic Peptide Total Protein 5.5 L Albumin 2.9 L Serum , Qual Stool Occult Blood Blood Type O POSITIVE Antibody Screen Negative Crossmatch See Detail 01/21/19 14:45 RBC 2.53 L MCV 90.1 MCHC 31.8 L RDW 16.2 H MPV 8.9 Neutrophils % 76.8 Lymphocytes % 18.4 D Monocytes % 3.9 Eosinophils % 0.5 Basophils % 0.4 - Medications Given in the ED: ED Medications Discontinued Medications Generic Name Dose Route Start Last Admin Trade Name Freq PRN Reason Stop Dose Admin Sodium Chloride 1,000 ml 01/21/19 14:33 01/21/19 14:41 Normal Saline - IV 01/21/19 14:34 1,000 ml ONCE ONE Administration Medical Decision Making - Medical Decision Making 01/21/19 19:07 Patient received on sign out from Dr. Valdes. 29F 5 weeks s/p presenting for syncopal episode. Hgb dropped from 10.5 to 7.2 two weeks ago. Reports RLQ since her . CT abd w/ IV contrast shows possible appendicitis and an enhancing cyst adjacent to the appendix. Pt reports poor PO intake. Dr. Aguilar (general surgery) consulted and recommends NPO, IV abx (zosyn) and IR consultation for possible drainage tomorrow and will evaluate tomorrow. Dr. Ramírez (OB) consulted, states that the pain is likely due to appendicitis, recommends pelvic US and will evaluate tomorrow. FOBT positive, patient has hx of hemorrhoids. -Patient receiving first of two units of pRBC -pelvic US 01/21/19 23:12 US pelvic shows: "The uterus and endometrial stripe appear normal. 1.4 cm right and 1.4 cm left complex ovarian cysts. 5.3 cm x 4 cm x 4.9 cm complex cystic mass in right adnexa in area of pain. When correlated with the CT images, this mass is more superior and lateral location in the pelvis and is suspicious for an abscess, possibly from the appendix, as noted on the CT report. Duplex Ultrasound: Appropriate arterial and/or venous flow are noted in both ovaries, making torsion unlikely at this time. No significant free pelvic fluid." Results d/w Dr. Ramírez who recommends following surgery's recommendations, and to hospitalist team. Discharge - Discharge Information Problems reviewed: Yes Clinical Impression/Diagnosis: Symptomatic anemia, Abdominal cyst Syncope Qualifiers: Syncope type: unspecified Qualified Code(s): R55 - Syncope and collapse Condition: Guarded - Follow up/Referral - Patient Discharge Instructions - Post Discharge Activity
[2019-01-21] MEDS ORDERED: DEXTROSE 5%-NORMAL SALINE 1,000 ML IV SCH (19:30)
[2019-01-21] MEDS ORDERED: PIPERACILLIN/TAZOB 3.375 GM 3.375 GM/50 ML BAG IVPB ONE (20:00)
[2019-01-21] MEDS ORDERED: PANTOPRAZOLE SODIUM 40 MG VIAL ONE (20:00)
--- NOTE | 2019-01-21 20:22 | HP ---
CHIEF COMPLAINT: Dizziness PCP: Dr. Shilpi Carey HISTORY OF PRESENT ILLNESS: This is a 29 y/o [id number] female with a PMHx of Fe deficiency anemia, Rt ovarian cyst, s/p 5 wks ago (Dr. Pineda; complicated by hemorrhage) BIBEMS after syncopizing while washing dishes. Pt states she was washing the dishes and suddenly felt flushed and felt the room spinning around her prompting her to sit down. She then lossed consciousness, as per her partner, described as her eyes rolling backwards with head bobbing and total body stiffness, unresponsive for 3 mins. Pt denies any head trauma. She had 2 more episodes in a span of 10 minutes, prompting him to call 911. She did not recall the episode soon after. She denies having a hx of seizures, or cardiac dx. She is not breast feeding and is asymptomatic at this time. She admits to taking Fe pills for her anemia as well as black stool which she believes is due to the iron pills. Pt endorses taking ibuprofen 600mg q4h prn for the past few wks mostly on an empty stomach, due to poor appetite for her recent c section. Furthermore, she had one watery BM but denied any bright red blood. Pt has a hx of hemmorhoids as well. She also has had RLQ abd pain that comes and goes since the c section, worsened with movement but not associated with nausea or vomiting. Pt states it is similar to the pain she had with the Rt ovarian cyst. Pt denies any cp, sob, fever, chills, diaphoresis, palpitations, bladder complaints. Pt was found to be hypotensive and tachycardic so 1L of fluids was given in the field. ER course was notable for: (1) 2 prbc's ordered, trops negative, CXR- negative, 3.375g zosyn given, EKG notable for nsr with a prolonged QTc (483) (2) CT abd pelvis- possible hematoma vs abscess around appendix with possible appendicitis (3) EMPLOYEE RELATIONS DIRECTOR, Sx, and IR consulted, EMPLOYEE RELATIONS DIRECTOR ordering pelvic sono, Recent Travel: denies PAST SURGICAL HISTORY: R ovarian cyst removal, Social History: Smoking: denies Alcohol: denies Drugs: denies Allergies No Known Allergies Allergy (Verified 12/18/18 11:34) HOME MEDICATIONS: Home Medications Medication Instructions Recorded Ferrous Sulfate [Feosol] 325 mg PO BID #60 tablet 12/21/18 Ibuprofen [Motrin -] 800 mg PO TID 01/04/19 Ketorolac Tromethamine [Toradol] 10 mg PO TID #21 tablet 01/04/19 95/Iron Fum/Folic/Dha 1 tab PO DAILY 01/04/19 [ + Dha Combo Pack] REVIEW OF SYSTEMS Negative except in HPI PHYSICAL EXAMINATION Vital Signs - 24 hr 01/21/19 01/21/19 01/21/19 13:51 16:55 17:10 Temperature 97.5 F L 98.1 F 98.2 F Pulse Rate 90 Pulse Rate [ 86 88 Apical] Respiratory 19 16 16 Rate Blood Pressure 98/55 L Blood Pressure 96/48 L 115/71 [Left Arm] O2 Sat by Pulse 100 98 98 Oximetry (%) 01/21/19 18:02 Temperature 98.3 F Pulse Rate Pulse Rate [ 86 Apical] Respiratory 20 Rate Blood Pressure Blood Pressure 109/56 L [Left Arm] O2 Sat by Pulse 98 Oximetry (%) GENERAL: Awake, alert, and fully oriented, in no acute distress. LUNGS: Breath sounds equal, clear to auscultation bilaterally. No wheezes, and no crackles. No accessory muscle use. HEART: Regular rate and rhythm, normal S1 and S2 without murmur, rub or gallop. ABDOMEN: Soft, ttp in RLQ, positive mcburneys sign, negative rovsing, negative psoas sign, non-tympanitic to percussion, not rigid, not distended, normoactive bowel sounds LOWER EXTREMITIES: 2+ pulses, warm, well-perfused. No calf tenderness. No peripheral edema. NEUROLOGICAL: Cranial nerves II-XII intact. Normal speech. Normal gait. PSYCHIATRIC: Cooperative. Good eye contact. Appropriate mood and affect. SKIN: Warm, dry, no rashes or lesions noted, c section scar nonerythematous or fluid drainage. Laboratory Results - last 24 hr 01/21/19 01/21/19 01/21/19 14:45 14:45 14:45 WBC 10.7 H RBC 2.53 L Hgb 7.3 L Hct 22.8 L D MCV 90.1 MCH 28.6 MCHC 31.8 L RDW 16.2 H Plt Count 244 D MPV 8.9 Absolute Neuts (auto) 8.2 H Neutrophils % 76.8 Lymphocytes % 18.4 D Monocytes % 3.9 Eosinophils % 0.5 Basophils % 0.4 Nucleated RBC % 0 Sodium 145 Potassium 4.1 Chloride 114 H Carbon Dioxide 24 Anion Gap 8 BUN 21.2 H Creatinine 0.6 Est GFR (CKD-EPI)AfAm 143.77 Est GFR (CKD-EPI)NonAf 124.04 Random Glucose 88 Calcium 7.5 L Total Bilirubin 0.1 L AST 8 L ALT 15 Alkaline Phosphatase 57 Creatine Kinase 37 Troponin I < 0.02 B-Natriuretic Peptide Total Protein 5.5 L Albumin 2.9 L Serum , Qual Stool Occult Blood Blood Type O POSITIVE Antibody Screen Negative Crossmatch See Detail 01/21/19 01/21/19 01/21/19 14:45 14:45 15:37 WBC RBC Hgb Hct MCV MCH MCHC RDW Plt Count MPV Absolute Neuts (auto) Neutrophils % Lymphocytes % Monocytes % Eosinophils % Basophils % Nucleated RBC % Sodium Potassium Chloride Carbon Dioxide Anion Gap BUN Creatinine Est GFR (CKD-EPI)AfAm Est GFR (CKD-EPI)NonAf Random Glucose Calcium Total Bilirubin AST ALT Alkaline Phosphatase Creatine Kinase Troponin I B-Natriuretic Peptide 7.5 Total Protein Albumin Serum , Qual Negative Stool Occult Blood Positive Blood Type Antibody Screen Crossmatch ASSESSMENT/PLAN: This is a 29 y/o [id number] F with a PMHx of Fe deficiency anemia, Rt ovarian cyst, s/p 5 wks ago (complicated by hemorrhage) BIBEMS after syncopizing while washing dishes. Pt states she was washing the dishes and suddenly felt flushed and felt the room spinning around her prompting her to sit down. She then lossed consciousness, as per her partner, described as her eyes rolling backwards with head bobbing and total body stiffness, unresponsive for 3 mins. #Syncope vs Seizure - likely 2/2 orthostatic hypotension although lack of positional relation to episode - pt hypovolemic, orthostatic vitals would be inaccurate due to fluid resuscitation. - doubt vasovagal given lack of prodromal symptoms other than flushing. - echo ordered to assess pt's valvular function, may want to try bubble study with it, can order carotid duplex although doubt atherosclerosis is present in this young female. - not septic but lactate ordered - seizure precautions - fall precautions - neuro checks q4h, vital signs check q4h - IV D5LR @125 cc/hr - tsh, mg, phos, #Acute appendicitis vs appendiceal abscess/hematoma - CT abd pelvis: significant for fluid collection concerning for abscess vs hematoma in presence of appenicolith/?appendicitis - Dr. Mack consulted for potential IR drainage of fluid collection - Sx consulted (Dr. Montejo) for likely appendectomy - Dog Handler Or Trainer consulted (Dr. Holbrook)- pelvic sono suggestive of appendiceal abscess which no longer requires EMPLOYEE RELATIONS DIRECTOR care at this time. - Lactic acid normal - pt NPO for bowel rest, on IVF's, and prbc's prn for Hgb< 7. - pt afebrile, no wbc, doubt pt has an acute abscess given clinical exam and laboratory investigation but will continue zosyn 3.375g Q6H until certain. #Anemia s/p -> r/o acute upper GI bleed vs hoemolysis - FOBT poitive, VANITA significant for brown stool - 2 prbcs ordered - recent NSAID use for 5 wks 600mg Q4H - LDH, retic, haptoglobin ordered - GI consulted for upper GI bleed management and pt npo in event GI would like to do egd today - continue to monitor for signs of bleeding - IV protonix 40bid for ? upper GI bleed - hold NSAIDS, AC, dvt ppx - SCD's for dvt ppx - rpt PT/PTT, ferritin to r/o potential coagulopathic disorders of which is unlikely at this time but for completeness sake will order #prolonged QTc - will repeat ekg in AM - hold zofran for nausea or any agents at risk of prolongation of QTc. Visit type - Emergency Visit Emergency Visit: Yes ED Registration Date: 01/21/19 Care time: The patient presented to the Emergency Department on the above date and was hospitalized for further evaluation of their emergent condition. - New Patient This patient is new to me today: Yes Date on this admission: 01/23/19 - Critical Care Critical Care patient: No ATTENDING PHYSICIAN STATEMENT I saw and evaluated the patient. I reviewed the resident's note and discussed the case with the resident. I agree with the resident's findings and plan as documented. SUBJECTIVE: OBJECTIVE: ASSESSMENT AND PLAN:
[2019-01-21] MEDS: DEXTROSE 5%-LACTATED RINGERS 1,000 ML IV SCH (20:58)
[2019-01-21] MEDS ORDERED: PANTOPRAZOLE 40 MG TABLET (FP) PO SCH (22:00)
--- NOTE | 2019-01-21 23:46 | PN ---
Teaching Attending Note Name of Resident: Max Estrada ATTENDING PHYSICIAN STATEMENT I saw and evaluated the patient. I reviewed the resident's note and discussed the case with the resident. I agree with the resident's findings and plan as documented. SUBJECTIVE: 29 year old female, with significant past medical history of () complicated by hemorrhage requiring blood transfusion, brought to hospital status post multiple episodes of syncope on 01/21/2019. Earlier that day she was washing dishes and began to feel warm, subsequently sat down and passed out for 2 to 3 minutes. Patient had at least 2 more episodes of syncope after she woke up and attempted to sit up again each lasting no more than a couple minutes. There is no postictal state, no tongue biting or urinary incontinence reported. EMS was called and patient was brought to hospital was reportedly hypotensive in route and tachycardic. OBJECTIVE: Last Vital Signs Temp Pulse Resp BP Pulse Ox 98.0 F 75 18 100/55 L 100 01/21/19 22:50 01/21/19 22:50 01/21/19 22:50 01/21/19 22:50 01/21/19 22:50 GENERAL: Well developed, well nourished. Awake and alert. No acute distress. HEENT: Normocephalic, atraumatic. PERRLA, EOMI. Pale sclera bilaterally NECK: Supple. Full ROM. No JVD. Carotid pulses 2+ and symmetric, without bruits. No thyromegaly. No lymphadenopathy. CARDIOVASCULAR: Regular rate and rhythm. No murmurs, rubs, or gallops. Distal pulses are 2+ and symmetric. PULMONARY: No evidence of respiratory distress. Lungs clear to auscultation bilaterally. No wheezing, rales or rhonchi. ABDOMINAL: Soft. RLQ tenderness, no rebound tenderness, Non-distended. No rebound or guarding. No organomegaly. Normoactive bowel sounds. MUSCULOSKELETAL Normal range of motion at all joints. No bony deformities or tenderness. No CVA tenderness. EXTREMITIES: No cyanosis. No clubbing. No edema. No calf tenderness. SKIN: Warm and dry. Normal capillary refill. No rashes. No jaundice. PSYCHIATRIC: Cooperative. Good eye contact. Appropriate mood and affect. ER rectal exam- two nonthrombosed hemorrhoids present, no active bleeding or discharge from anus. Normal sphincter tone. No masses or nodules of the rectal vault palpated. No fecal impaction. No blood but dark brown stool on glove. Abnormal Lab Results 01/21/19 01/21/19 01/21/19 14:45 14:45 14:45 WBC 10.7 H RBC 2.53 L Hgb 7.3 L Hct 22.8 L D MCHC 31.8 L RDW 16.2 H Absolute Neuts (auto) 8.2 H Chloride 114 H BUN 21.2 H Calcium 7.5 L Total Bilirubin 0.1 L AST 8 L Total Protein 5.5 L Albumin 2.9 L Crossmatch See Detail [id number] Imaging studies reviewed CT of abdomen pelvis showed soft tissue inflammatory changes confined to right lower quadrant surrounding cyst. Tiny fluid in posterior cul-de-sac. No evidence of bowel obstruction free air or diverticulitis. Moderate stool burden. Cystic mass in right lower quadrant concerning for abscess adjacent to a prominent appendix with appendicolith. Early appendicitis with abscess may be present. ASSESSMENT AND PLAN: 29-year-old woman status post 12/18/2018 with severe acute symptomatic anemia, multiple syncope episodes which may be related to underlying anemia versus orthostatic in nature, possible appendicitis and periappendiceal abscess. Mild leukocytosis is noted. Unclear cause of anemia but may be secondary to acute bleed suspect possible GI bleed or vaginal bleeding. Less likely hemolysis but should r/o too. Admit to MedSurg npo protonix 40mg iv bid Status post PRBC transfusion x2 Recheck CBC Check orthostatics IV fluid hydration Transthoracic echo Bedrest and fall precautions Empiric Zosyn 3.375 g every 6 hours for possible periappendiceal abscess as well as appendicitis Surgery and PHOTOGRAMMETRIC TECH evaluation GI consult for possible colonoscopy/egd ldh, haptoglobin, retic count, rbc smear SCDs for DVT prophylaxis
--- NOTE | 2019-01-22 00:04 | CON.OBG ---
Consult Consult Specialty:: Gynecology Referred by:: Dr Arechiga Reason for Consultation:: mass seen by CT scan sp CS by Mati - History of Present Illness Chief Complaint: right lower abd pain for a few days associated with nausea History of Present Illness: 29 yo SP section with syncope episodes and anemia. Pt seen in ER with same episodes with nausea HCt 22 SP transfusion x 2 in ER - History Source History Provided By: Patient Limitations to Obtaining History: No Limitations - Past Medical History ...LMP: 03/12/18 ...: No - Past Surgical History Past Surgical History: Yes: , Cystectomy (right) - Alcohol/Substance Use Hx Alcohol Use: No History of Substance Use: reports: None - Smoking History Smoking history: Never smoked Have you smoked in the past 12 months: No - Social History ADL: Independent History of Recent Travel: No Home Medications - Allergies Allergies/Adverse Reactions: Allergies Allergy/AdvReac Type Severity Reaction Status Date / Time No Known Allergies Allergy Verified 12/18/18 11:34 - Home Medications Home Medications: Ambulatory Orders Ibuprofen [Motrin -] 800 mg PO TID 01/04/19 Ketorolac Tromethamine [Toradol] 10 mg PO TID #21 tablet 01/04/19 95/Iron Fum/Folic/Dha [ + Dha Combo Pack] 1 tab PO DAILY Ferrous Sulfate [Feosol] 325 mg PO TID 01/21/19 Review of Systems - Review of Systems Constitutional: reports: No Symptoms Eyes: reports: No Symptoms HENT: reports: No Symptoms Neck: reports: No Symptoms Cardiovascular: reports: No Symptoms Respiratory: reports: No Symptoms Gastrointestinal: reports: Abdominal Pain (right), Nausea Genitourinary: reports: No Symptoms Breasts: reports: No Symptoms Reported Musculoskeletal: reports: No Symptoms Integumentary: reports: No Symptoms Neurological: reports: No Symptoms Endocrine: reports: No Symptoms Hematology/Lymphatic: reports: No Symptoms Psychiatric: reports: No Symptoms 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 Signs: Vital Signs Temperature 98.0 F 01/21/19 22:50 Pulse Rate 75 01/21/19 22:50 Respiratory Rate 18 01/21/19 22:50 Blood Pressure 100/55 L 01/21/19 22:50 O2 Sat by Pulse Oximetry (%) 100 01/21/19 22:50 Constitutional: Yes: Anxious Gastrointestinal: Yes: Tenderness (RLQ tenderness) ....Post : Yes: Uterus firm, Uterus non-tender Musculoskeletal: Yes: WNL Extremities: Yes: WNL Edema: No Wound/Incision: Yes: Clean/Dry Neurological: Yes: WNL, Alert, Oriented Labs: CBC, BMP 01/21/19 14:45 01/21/19 14:45 Problem List - Problems (1) Abscess of appendix Code(s): K35.33 - ACUTE APPENDICITIS WITH PERF AND LOC PERITONITIS, WITH ABSCS Assessment/Plan Right lower quad Pain appendeal abscess confirmed by CT and USg of pelvis 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
[2019-01-22 00:35] LABS: PH,URINE 6.5 (5.0-8.0); URINE APPEARANCE CLEAR; URINE BILIRUBIN NEGATIVE (NEGATIVE); URINE COLOR YELLOW; URINE GLUCOSE (UA) NEGATIVE (NEGATIVE); URINE KETONE TRACE (NEGATIVE); URINE PROTEIN NEGATIVE (NEGATIVE); URINE UROBILINOGEN 0.2 mg/dL (0.2-1.0)
[2019-01-22 00:36] LABS: URINE LEUK ESTERASE NEGATIVE (NEGATIVE); URINE NITRITE NEGATIVE (NEGATIVE)
[2019-01-22 00:47] LABS: EPI CELLS 2.5 /HPF (0-5/HPF); HYALINE CASTS 2.96 /lpf (0-8); URINE BACTERIA 49.4 /hpf (NEGATIVE); URINE RBC 1.1 /hpf (0-4); URINE WBC 4.6 /hpf (0-5)
[2019-01-22] MEDS ORDERED: PIPERACILLIN/TAZOB 3.375 GM 3.375 GM in DEXTROSE 5%-WATER - 50 ML IVPB SCH (02:00)
[2019-01-22] MEDS ORDERED: PIPERACILLIN/TAZOB 3.375 GM 3.375 GM/50 ML BAG IVPB ONE ×2 (02:33→14:10)
[2019-01-22] MEDS: PIPERACILLIN/TAZOB 3.375 GM 3.375 GM in DEXTROSE 5%-WATER - 50 ML IVPB SCH ×4 (02:48→20:56)
[2019-01-22 02:51] LABS: BASO % 0.6 % (0-2.0); EOS % 0.5 % (0-4.5); HEMATOCRIT 28.7 % (32.4-45.2); HEMOGLOBIN 9.5 GM/dL (10.7-15.3); LYMPH % 34.4 % (8-40); MCHC 33.1 g/dl (32.0-36.0); MEAN CELL VOLUME 90.6 fl (80-96); MEAN PLT VOLUME 8.8 fl (7.5-11.1); MONO % 4.3 % (3.8-10.2); NEUT % 60.2 % (42.8-82.8); PLATELET COUNT 223 K/MM3 (134-434); RBC 3.16 M/mm3 (3.60-5.2); RDW 15.1 % (11.6-15.6); WHITE BLOOD COUNT 9.4 K/mm3 (4.0-10.0)
[2019-01-22 03:03] LABS: INR 1.1 (0.83-1.09)
[2019-01-22 03:06] LABS: ACTIVATED PTT 37.4 SECONDS (25.2-36.5)
[2019-01-22 06:18] LABS: HEMATOCRIT 26.3 % (32.4-45.2); HEMOGLOBIN 8.9 GM/dL (10.7-15.3); MCH 29.9 pg (25.7-33.7); MCHC 33.8 g/dl (32.0-36.0); MEAN CELL VOLUME 88.4 fl (80-96); PLATELET COUNT 219 K/MM3 (134-434); RBC 2.98 M/mm3 (3.60-5.2); RDW 15.2 % (11.6-15.6); WHITE BLOOD COUNT 8.1 K/mm3 (4.0-10.0)
[2019-01-22 06:55] LABS: ALBUMIN 2.8 g/dl (3.4-5.0); BILIRUBIN,TOTAL 0.5 mg/dL (0.2-1); BLOOD UREA NITROGEN 11.2 mg/dL (7-18); CALCIUM 8.1 mg/dL (8.5-10.1); CREATININE 0.7 mg/dL (0.55-1.3); MAGNESIUM 1.9 mg/dL (1.8-2.4); PHOSPHOROUS 2.8 mg/dL (2.5-4.9); POTASSIUM 3.4 mmol/L (3.5-5.1); TOT PROT 5.3 g/dl (6.4-8.2)
[2019-01-22 08:50] LABS: RETICULOCYTES 3.07 % (0.5-1.5)
[2019-01-22] MEDS: KCL 10 MEQ IVPB 10 MEQ/100 ML INFUS.BAG IVPB SCH ×2 (09:54→13:37)
[2019-01-22] MEDS ORDERED: PANTOPRAZOLE 40 MG TABLET (FP) PO SCH ×2 (10:00→22:00)
[2019-01-22] MEDS: PANTOPRAZOLE SODIUM 40 MG VIAL IVPUSH SCH ×2 (10:05→21:57)
--- NOTE | 2019-01-22 10:16 | PN ---
Progress Note (short form) - Note Progress Note: Case discussed with Dr Aguilar. Briefly pt is a 29 y/o F s/p c section on 12/18 c/b post op anemia requiring 3 units prbc. Pt denies any abdo pain, n/v/d prior to section. After section reports lower abdo pain R slightly more than L. Now in ED after syncope at home yesterday. Ct scan revealing right lower quadrant thick-walled fluid collections suspicious for appendiceal abscess. Pt denies fevers/chills, n/v/d at home. Plan for IR drainage today. Pt will require 5 days of IV Zosyn NPO today, will likely begin clears tomorrow Pt will require interval appendectomy late February/early March Plan d/w pt at length, pt verbalized understanding, all questions answered D/w IR, pt is on the schedule for today 01/22 Will continue to follow Attending note to follow
--- NOTE | 2019-01-22 10:38 | EKG ---
Test Reason : Blood Pressure : / mmHG Vent. Rate : 083 BPM Atrial Rate : 083 BPM P-R Int : 108 ms QRS Dur : 094 ms QT Int : 406 ms P-R-T Axes : 033 057 029 degrees QTc Int : 477 ms SINUS RHYTHM WITH SHORT [place] INCOMPLETE RIGHT BUNDLE BRANCH BLOCK BORDERLINE ECG WHEN COMPARED WITH ECG OF 21-JAN-2019 15:19, NO SIGNIFICANT CHANGE WAS FOUND Confirmed by YVONNE CAMEJO MD ([id number]) on 01/22/2019 10:37:50 AM Referred By: Confirmed By:YVONNE CAMEJO MD
--- NOTE | 2019-01-22 10:39 | EKG ---
Test Reason : Blood Pressure : / mmHG Vent. Rate : 085 BPM Atrial Rate : 085 BPM P-R Int : 124 ms QRS Dur : 084 ms QT Int : 406 ms P-R-T Axes : 047 068 036 degrees QTc Int : 483 ms NORMAL SINUS RHYTHM PROLONGED QT ABNORMAL ECG WHEN COMPARED WITH ECG OF 19-DEC-2018 10:11, NO SIGNIFICANT CHANGE WAS FOUND Confirmed by YVONNE CAMEJO MD ([id number]) on 01/22/2019 10:38:42 AM Referred By: Confirmed By:YVONNE CAMEJO MD
--- NOTE | 2019-01-22 13:45 | PN ---
Teaching Attending Note Name of Resident: Ildefonso Livingston ATTENDING PHYSICIAN STATEMENT I saw and evaluated the patient. I reviewed the resident's note and discussed the case with the resident. I agree with the resident's findings and plan as documented. SUBJECTIVE: Feeling better, has ongoing RLQ abdominal pain. No fever/chills. No nausea/vomiting. Stool dark since starting FeSO4 supplementation. Currently s/p 2 units PRBCs in ED. No CP/palps/lightheadedness/SOB. OBJECTIVE: Afebrile Hemodynamically Stable. Last Vital Signs Temp Pulse Resp BP Pulse Ox 97.1 F L 69 16 92/43 L 100 01/22/19 10:08 01/22/19 12:38 01/22/19 12:38 01/22/19 12:38 01/22/19 12:38 HEENT - Atraumatic, Normocephalic. Heart - S1, S2, RRR Lungs - clear to auscultation Abdomen - Soft, incision clean. Tender RLQ. Bowel Sounds normal. Extremities - no edema, no calf tenderness. Neuro- AAO x 3. Tone/Power normal all 4 extremities. Laboratory Results - last 24 hr 01/21/19 01/21/19 01/21/19 14:45 14:45 14:45 WBC 10.7 H RBC 2.53 L Hgb 7.3 L Hct 22.8 L D MCV 90.1 MCH 28.6 MCHC 31.8 L RDW 16.2 H Plt Count 244 D MPV 8.9 Absolute Neuts (auto) 8.2 H Neutrophils % 76.8 Lymphocytes % 18.4 D Monocytes % 3.9 Eosinophils % 0.5 Basophils % 0.4 Nucleated RBC % 0 Retic Count PT with INR INR PTT (Actin FS) Sodium 145 Potassium 4.1 Chloride 114 H Carbon Dioxide 24 Anion Gap 8 BUN 21.2 H Creatinine 0.6 Est GFR (CKD-EPI)AfAm 143.77 Est GFR (CKD-EPI)NonAf 124.04 Random Glucose 88 Lactic Acid Calcium 7.5 L Phosphorus Magnesium Ferritin Total Bilirubin 0.1 L AST 8 L ALT 15 Alkaline Phosphatase 57 LD Total Creatine Kinase 37 Troponin I < 0.02 B-Natriuretic Peptide Total Protein 5.5 L Albumin 2.9 L TSH Serum , Qual Urine Color Urine Appearance Urine pH Ur Specific Parker Urine Protein Urine Glucose (UA) Urine Ketones Urine Blood Urine Nitrite Urine Bilirubin Urine Urobilinogen Ur Leukocyte Esterase Urine WBC (Auto) Urine RBC (Auto) Urine Casts (Auto) U Epithel Cells (Auto) Urine Bacteria (Auto) Stool Occult Blood Blood Type O POSITIVE Antibody Screen Negative Crossmatch See Detail 01/21/19 01/21/19 01/21/19 14:45 14:45 15:37 WBC RBC Hgb Hct MCV MCH MCHC RDW Plt Count MPV Absolute Neuts (auto) Neutrophils % Lymphocytes % Monocytes % Eosinophils % Basophils % Nucleated RBC % Retic Count PT with INR INR PTT (Actin FS) Sodium Potassium Chloride Carbon Dioxide Anion Gap BUN Creatinine Est GFR (CKD-EPI)AfAm Est GFR (CKD-EPI)NonAf Random Glucose Lactic Acid Calcium Phosphorus Magnesium Ferritin Total Bilirubin AST ALT Alkaline Phosphatase LD Total Creatine Kinase Troponin I B-Natriuretic Peptide 7.5 Total Protein Albumin TSH Serum , Qual Negative Urine Color Urine Appearance Urine pH Ur Specific Parker Urine Protein Urine Glucose (UA) Urine Ketones Urine Blood Urine Nitrite Urine Bilirubin Urine Urobilinogen Ur Leukocyte Esterase Urine WBC (Auto) Urine RBC (Auto) Urine Casts (Auto) U Epithel Cells (Auto) Urine Bacteria (Auto) Stool Occult Blood Positive Blood Type Antibody Screen Crossmatch 01/21/19 01/21/19 01/22/19 20:20 20:20 02:30 WBC 9.4 RBC 3.16 L Hgb 9.5 L Hct 28.7 L D MCV 90.6 MCH 30.0 MCHC 33.1 RDW 15.1 Plt Count 223 MPV 8.8 Absolute Neuts (auto) 5.7 Neutrophils % 60.2 D Lymphocytes % 34.4 D Monocytes % 4.3 Eosinophils % 0.5 Basophils % 0.6 Nucleated RBC % 0 Retic Count PT with INR INR PTT (Actin FS) Sodium Potassium Chloride Carbon Dioxide Anion Gap BUN Creatinine Est GFR (CKD-EPI)AfAm Est GFR (CKD-EPI)NonAf Random Glucose Lactic Acid 0.8 Calcium Phosphorus Magnesium Ferritin Total Bilirubin AST ALT Alkaline Phosphatase LD Total Creatine Kinase Troponin I B-Natriuretic Peptide Total Protein Albumin TSH Serum , Qual Urine Color Yellow Urine Appearance Clear Urine pH 6.5 Ur Specific Parker 1.047 H Urine Protein Negative Urine Glucose (UA) Negative Urine Ketones Trace H Urine Blood Trace Urine Nitrite Negative Urine Bilirubin Negative Urine Urobilinogen 0.2 Ur Leukocyte Esterase Negative Urine WBC (Auto) 4.6 Urine RBC (Auto) 1.1 Urine Casts (Auto) 2.96 U Epithel Cells (Auto) 2.5 Urine Bacteria (Auto) 49.4 Stool Occult Blood Blood Type Antibody Screen Crossmatch 01/22/19 01/22/19 01/22/19 02:30 05:30 05:30 WBC 8.1 RBC 2.98 L Hgb 8.9 L Hct 26.3 L MCV 88.4 MCH 29.9 MCHC 33.8 RDW 15.2 Plt Count 219 MPV 9.0 Absolute Neuts (auto) Neutrophils % Lymphocytes % Monocytes % Eosinophils % Basophils % Nucleated RBC % Retic Count 3.07 H PT with INR 13.00 INR 1.10 H PTT (Actin FS) 37.4 H Sodium 144 Potassium 3.4 L Chloride 114 H Carbon Dioxide 24 Anion Gap 6 L BUN 11.2 Creatinine 0.7 Est GFR (CKD-EPI)AfAm 136.66 Est GFR (CKD-EPI)NonAf 117.91 Random Glucose 94 Lactic Acid Calcium 8.1 L Phosphorus 2.8 Magnesium 1.9 Ferritin 73.2 Total Bilirubin 0.5 AST 10 L ALT 15 Alkaline Phosphatase 57 LD Total 147 Creatine Kinase Troponin I B-Natriuretic Peptide Total Protein 5.3 L Albumin 2.8 L TSH 3.45 Serum , Qual Urine Color Urine Appearance Urine pH Ur Specific Parker Urine Protein Urine Glucose (UA) Urine Ketones Urine Blood Urine Nitrite Urine Bilirubin Urine Urobilinogen Ur Leukocyte Esterase Urine WBC (Auto) Urine RBC (Auto) Urine Casts (Auto) U Epithel Cells (Auto) Urine Bacteria (Auto) Stool Occult Blood Blood Type Antibody Screen Crossmatch Current Medications Generic Name Dose Route Start Last Admin Trade Name Freq PRN Reason Stop Dose Admin Dextrose/Lactated Ringer's 1,000 mls @ 125 mls/hr 01/21/19 19:45 01/21/19 20: 58 D5-Lr - IV 125 mls/hr ASDIR MARLEN Administration Piperacillin Sod/Tazobactam 50 mls @ 100 mls/hr 01/22/19 02:00 Sod 3.375 gm/ Dextrose IVPB Q6H MARLEN Protocol Piperacillin Sod/Tazobactam 50 mls @ 100 mls/hr 01/22/19 02:00 01/22/19 09:04 Sod 3.375 gm/ Dextrose IVPB 01/22/19 20:29 100 mls/hr Q6H MARLEN Administration Pantoprazole Sodium 40 mg 01/22/19 10:00 01/22/19 10:05 Protonix Iv IVPUSH 40 mg BID MARLEN Administration Home Medications Medication Instructions Recorded Ibuprofen [Motrin -] 800 mg PO TID 01/04/19 95/Iron Fum/Folic/Dha 1 tab PO DAILY 01/04/19 [ + Dha Combo Pack] Ferrous Sulfate [Feosol] 325 mg PO TID 01/21/19 ASSESSMENT AND PLAN: 29 year old female s/p (12/18/18) complicated by hemorrhage requiring blood transfusion x 3, brought to hospital status post multiple episodes of syncope on 01/21/2019 without HI, tongue biting, tonic/ clonic activitiy, or incontinence. Found to be anemic in ED with FOBT positive stool, received [address] of abdomen pelvis showed soft tissue inflammatory changes confined to right lower quadrant adjacent to appendix. Cystic mass in right lower quadrant concerning for abscess adjacent to a prominent appendix with appendicolith. No evidence of bowel obstruction, free air or diverticulitis. Moderate stool burden. Early appendicitis with abscess may be present. 1. Acute Appendicitis with Abscess Surgery consulted - recommend IV abx, IR drainage and elective Appendectomy in 4 -6 weeks. For IR guided drainage today Seen by Gynecology/Obstetrics and cleared from Gyne perspective. Continue IV Zosyn pending IR guided Aspirate Cx result. NPO/ IV fluids. 2. Syncope likely sec to Hypovolemia Currently s/p 2 units PRBCs with ongoing IV hydration. Telemonitoring, Echo to complete syncope work-up 3. Iron Deficiency Anemia (sec to post- blood loss, now with FOBT positive stool ?false positive occult blood reading due to FeSO4 supplements. GI consulted by admitting team for further Ix. GI Px with PPI. 4. Hypokalemia - repleted. DVT Px - SCDs.
--- NOTE | 2019-01-22 14:52 | CON.GI ---
Consult Consult Specialty:: GI Referred by:: Medicine Reason for Consultation:: black stool - History of Present Illness Chief Complaint: syncope History of Present Illness: 29F 1 month post (c/b post hemorrhage requiring transfusion) presenting after multiple episodes of syncope yesterday. Has since been found to have appendicitis and possible abscess, now s/p IR drainage. GI consulted for black stool. Patient was discharged on PO iron, and stools were hard and black/green. ++NSAIDs - taking ibuprofen 600mg q4h x2 weeks, then 800mg q8h for two weeks, and may have taken naproxen on top of these. For the last three days, describes that stool was watery and tarry black with foul odor. Last bm was last evening, and was starting to form. Denies upper abdominal pain, N/V. +RLQ pain. Not . hgb noted on arrival to be down 2.5 grams from post check two weeks ago. FOBT sent and was positive so GI called. Is on BID IV PPI. - History Source History Provided By: Patient, Family Member - Past Medical History ...LMP: 03/12/18 ...: No - Past Surgical History Past Surgical History: Yes: , Cystectomy (right) - Alcohol/Substance Use Hx Alcohol Use: No History of Substance Use: reports: None - Smoking History Smoking history: Never smoked Have you smoked in the past 12 months: No - Social History ADL: Independent History of Recent Travel: No Home Medications - Allergies Allergies/Adverse Reactions: Allergies Allergy/AdvReac Type Severity Reaction Status Date / Time No Known Allergies Allergy Verified 12/18/18 11:34 - Home Medications Home Medications: Ambulatory Orders Ibuprofen [Motrin -] 800 mg PO TID 01/04/19 95/Iron Fum/Folic/Dha [ + Dha Combo Pack] 1 tab PO DAILY Ferrous Sulfate [Feosol] 325 mg PO TID 01/21/19 Review of Systems - Review of Systems Constitutional: denies: Fever Eyes: reports: No Symptoms Neck: reports: No Symptoms Respiratory: reports: No Symptoms Gastrointestinal: reports: Abdominal Pain, Melena. denies: Nausea, Vomiting Genitourinary: reports: No Symptoms Musculoskeletal: reports: No Symptoms Integumentary: reports: No Symptoms Neurological: reports: Change in LOC, Syncope Endocrine: denies: No Symptoms Hematology/Lymphatic: denies: No Symptoms Psychiatric: denies: No Symptoms Physical Exam-GI Vital Signs: Vital Signs Temperature 97.1 F L 01/22/19 10:08 Pulse Rate 69 01/22/19 12:38 Respiratory Rate 16 01/22/19 12:38 Blood Pressure 92/43 L 01/22/19 12:38 O2 Sat by Pulse Oximetry (%) 100 01/22/19 12:38 Constitutional: Yes: Well Nourished, No Distress Eyes: Yes: WNL, Conjunctiva Clear, Other (pale conjunctiva) Cardiovascular: Yes: Regular Rate and Rhythm Respiratory: Yes: CTA Bilaterally ...Palpate: Yes: Soft, Tenderness (RLQ ttp with guarding). No: Tenderness, Rebound ...Rectal Exam: Yes: Other (External skin tags, VANITA with no blood or mass, black /green trace stool) Edema: No Neurological: Yes: Alert, Oriented Labs: CBC, BMP 01/22/19 05:30 01/22/19 05:30 INR, PTT INR 1.10 (0.83-1.09) H 01/22/19 02:30 Imaging - Results Cat Scan: Report Reviewed Assessment/Plan Impression: Possible UGIB, possible PUD from copious NSAID use. Suspect bleeding has stopped since last bm was last evening. - clear liquids for now, NPO after MN - IV PPI BID - will plan for EGD tomorrow
--- NOTE | 2019-01-22 16:00 | PN ---
Physical Exam: SUBJECTIVE: Patient seen and examined in the morning. No acute events overnight. Patient complains of mild abdominal pain in the right lower quadrant. No blood in urine or stool. No chest pain, shortness of breath, nausea , vomiting, diarrhea, fevers, or chills. OBJECTIVE: Vital Signs Period Temp Pulse Resp BP Sys/Arnold Pulse Ox Last 24 Hr 97.1 F-98.3 F 66-88 15-20 92-115/43-79 98-100 GENERAL: The patient is awake, alert, and fully oriented, in no acute distress. HEAD: Normal with no signs of trauma. EYES: PERRL, extraocular movements intact, sclera anicteric, conjunctiva clear. No ptosis. ENT: Ears normal, nares patent, oropharynx clear without exudates, moist mucous membranes. NECK: Trachea midline, full range of motion, supple. LUNGS: Breath sounds equal, clear to auscultation bilaterally, no wheezes, no crackles, no accessory muscle use. HEART: Regular rate and rhythm, S1, S2 without murmur, rub or gallop. ABDOMEN: Tender to palpation in the right lower quadrant. Surgical sites from C- section are closed with no erythema. Normoactive bowel sounds. EXTREMITIES: 2+ pulses, warm, well-perfused, no edema. NEUROLOGICAL: Cranial nerves II through XII grossly intact. Normal speech, gait not observed. PSYCH: Normal mood, normal affect. SKIN: Warm, dry, normal turgor, no rashes or lesions noted Laboratory Results - last 24 hr 01/21/19 01/21/19 01/21/19 14:45 15:37 20:20 WBC RBC Hgb Hct MCV MCH MCHC RDW Plt Count MPV Absolute Neuts (auto) Neutrophils % Lymphocytes % Monocytes % Eosinophils % Basophils % Nucleated RBC % Retic Count PT with INR INR PTT (Actin FS) Sodium Potassium Chloride Carbon Dioxide Anion Gap BUN Creatinine Est GFR (CKD-EPI)AfAm Est GFR (CKD-EPI)NonAf Random Glucose Lactic Acid 0.8 Calcium Phosphorus Magnesium Ferritin Total Bilirubin AST ALT Alkaline Phosphatase LD Total Total Protein Albumin TSH Urine Color Urine Appearance Urine pH Ur Specific [place] Urine Protein Urine Glucose (UA) Urine Ketones Urine Blood Urine Nitrite Urine Bilirubin Urine Urobilinogen Ur Leukocyte Esterase Urine WBC (Auto) Urine RBC (Auto) Urine Casts (Auto) U Epithel Cells (Auto) Urine Bacteria (Auto) Stool Occult Blood Positive Blood Type O POSITIVE Antibody Screen Negative Crossmatch See Detail 01/21/19 01/22/19 01/22/19 20:20 02:30 02:30 WBC 9.4 RBC 3.16 L Hgb 9.5 L Hct 28.7 L D MCV 90.6 MCH 30.0 MCHC 33.1 RDW 15.1 Plt Count 223 MPV 8.8 Absolute Neuts (auto) 5.7 Neutrophils % 60.2 D Lymphocytes % 34.4 D Monocytes % 4.3 Eosinophils % 0.5 Basophils % 0.6 Nucleated RBC % 0 Retic Count PT with INR 13.00 INR 1.10 H PTT (Actin FS) 37.4 H Sodium Potassium Chloride Carbon Dioxide Anion Gap BUN Creatinine Est GFR (CKD-EPI)AfAm Est GFR (CKD-EPI)NonAf Random Glucose Lactic Acid Calcium Phosphorus Magnesium Ferritin Total Bilirubin AST ALT Alkaline Phosphatase LD Total Total Protein Albumin TSH Urine Color Yellow Urine Appearance Clear Urine pH 6.5 Ur Specific [place] 1.047 H Urine Protein Negative Urine Glucose (UA) Negative Urine Ketones Trace H Urine Blood Trace Urine Nitrite Negative Urine Bilirubin Negative Urine Urobilinogen 0.2 Ur Leukocyte Esterase Negative Urine WBC (Auto) 4.6 Urine RBC (Auto) 1.1 Urine Casts (Auto) 2.96 U Epithel Cells (Auto) 2.5 Urine Bacteria (Auto) 49.4 Stool Occult Blood Blood Type Antibody Screen Crossmatch 01/22/19 01/22/19 05:30 05:30 WBC 8.1 RBC 2.98 L Hgb 8.9 L Hct 26.3 L MCV 88.4 MCH 29.9 MCHC 33.8 RDW 15.2 Plt Count 219 MPV 9.0 Absolute Neuts (auto) Neutrophils % Lymphocytes % Monocytes % Eosinophils % Basophils % Nucleated RBC % Retic Count 3.07 H PT with INR INR PTT (Actin FS) Sodium 144 Potassium 3.4 L Chloride 114 H Carbon Dioxide 24 Anion Gap 6 L BUN 11.2 Creatinine 0.7 Est GFR (CKD-EPI)AfAm 136.66 Est GFR (CKD-EPI)NonAf 117.91 Random Glucose 94 Lactic Acid Calcium 8.1 L Phosphorus 2.8 Magnesium 1.9 Ferritin 73.2 Total Bilirubin 0.5 AST 10 L ALT 15 Alkaline Phosphatase 57 LD Total 147 Total Protein 5.3 L Albumin 2.8 L TSH 3.45 Urine Color Urine Appearance Urine pH Ur Specific [place] Urine Protein Urine Glucose (UA) Urine Ketones Urine Blood Urine Nitrite Urine Bilirubin Urine Urobilinogen Ur Leukocyte Esterase Urine WBC (Auto) Urine RBC (Auto) Urine Casts (Auto) U Epithel Cells (Auto) Urine Bacteria (Auto) Stool Occult Blood Blood Type Antibody Screen Crossmatch Active Medications Generic Name Dose Route Start Last Admin Trade Name Freq PRN Reason Stop Dose Admin Dextrose/Lactated Ringer's 1,000 mls @ 125 mls/hr 01/21/19 19:45 01/21/19 20: 58 D5-Lr - IV 125 mls/hr ASDIR MARLEN Administration Piperacillin Sod/Tazobactam 50 mls @ 100 mls/hr 01/22/19 02:00 Sod 3.375 gm/ Dextrose IVPB Q6H MARLEN Protocol Piperacillin Sod/Tazobactam 50 mls @ 100 mls/hr 01/22/19 02:00 01/22/19 14:23 Sod 3.375 gm/ Dextrose IVPB 01/22/19 20:29 100 mls/hr Q6H MARLEN Administration Pantoprazole Sodium 40 mg 01/22/19 10:00 01/22/19 10:05 Protonix Iv IVPUSH 40 mg BID MARLEN Administration ASSESSMENT/PLAN: 29F PMH s/p complicated by hemorrhage which required 3 units of blood, Fe deficiency anemia, right ovarian cyst, who was presented s/p multiple episodes of syncope. Was found to have appendiceal abscess on imaging done in emergency department. 1) Acute Appendicitis with Abscess -CT of abdomen pelvis showed soft tissue inflammatory changes confined to right lower quadrant adjacent to appendix. Cystic mass in right lower quadrant concerning for abscess adjacent to a prominent appendix with appendicolith. No evidence of bowel obstruction, free air or diverticulitis. Moderate stool burden. Early appendicitis with abscess may be present. -Zoysn 3.375 grams IV Q6H -Elective appendectomy in late February/March -IR drainage done today, culture pending -LR @125 ml/hr -IR consulted, appreciate recs -Software Analyst consulted, appreciate recs -Surgery consulted, appreciate recs 2)Stool occult blood positive -NPO after midnight -EGD tomorrow -Protonix 40 mg IV BID -Patient received 2 units overnight. Hgb currently 8.9 3)Syncope likely secondary to hypovolemia -Echo negative -Telemetry monitoring 4)Hypokalemia -Repleted in AM DVT Prophylaxis: SCD F: LR @125 E: Monitor CMP N: NPO after midnight Visit type - Emergency Visit Emergency Visit: Yes ED Registration Date: 01/21/19 Care time: The patient presented to the Emergency Department on the above date and was hospitalized for further evaluation of their emergent condition. - New Patient This patient is new to me today: No - Critical Care Critical Care patient: No ATTENDING PHYSICIAN STATEMENT I saw and evaluated the patient. I reviewed the resident's note and discussed the case with the resident. I agree with the resident's findings and plan as documented. SUBJECTIVE: OBJECTIVE: ASSESSMENT AND PLAN:
--- NOTE | 2019-01-22 16:07 | ECHO ---
Name: SAL KEY Exam:Adult Echocardiogram Study Date: 01/22/2019 03:33 PM Age: 29 yrs Reason For Study: SYNCOPE Height: 61 in Weight: 150 lb BSA: 1.7 m2 MMode/2D Measurements & Calculations IVSd: 0.80 cm Ao root diam: 2.8 cm LVIDd: 3.8 cm ACS: 1.8 cm LVIDs: 2.2 cm LVPWd: 1.1 cm EDV(Teich): 63.0 ml LVOT diam: 1.7 cm ESV(Teich): 16.6 ml Doppler Measurements & Calculations MV E max trace: 114.1 cm/sec Ao V2 max: 148.6 cm/sec MV A max trace: 47.2 cm/sec Ao max P.8 mmHg MV E/A: 2.4 Ao V2 mean: 103.6 cm/sec MV dec time: 0.21 sec Ao mean P.9 mmHg Ao V2 VTI: 31.0 cm LINO(I,D): 1.5 cm2 LINO(V,D): 1.5 cm2 LV V1 max P.9 mmHg SV(LVOT): 46.3 ml LV V1 mean P.2 mmHg LV V1 max: 98.2 cm/sec LV V1 mean: 71.5 cm/sec LV V1 VTI: 19.9 cm TR max trace: 254.4 cm/sec PI end-d trace: 92.3 cm/sec TR max P.0 mmHg Med Peak E' Trace: 7.6 cm/sec Med E/e': 15.1 Lat Peak E' Trace: 13.7 cm/sec Lat E/e': 8.3 Procedure A complete two-dimensional transthoracic echocardiogram was performed (2D, M-mode, Doppler and color flow Doppler). Technically limited study. Left Ventricle The left ventricle is normal in size. Left ventricular systolic function is normal. Ejection Fraction = 65- 70%. No regional wall motion abnormalities noted. Right Ventricle The right ventricle is normal size. The right ventricular systolic function is normal. RV systolic TD I is 17 cm/s. Atria The left atrial size is normal. Right atrial size is normal. Mitral Valve The mitral valve is normal in structure and function. There is mild mitral regurgitation. Tricuspid Valve The tricuspid valve is normal in structure and function. There is mild tricuspid regurgitation. Pulmo nary artery systolic pressure is at least 33 mmHg if RA pressure is assumed 3 mmHg (IVC was not clearly visualized). Aortic Valve The aortic valve is normal in structure and function. No aortic regurgitation is present. Pulmonic Valve The pulmonic valve is not well visualized. Mild pulmonic valvular regurgitation. Great Vessels The aortic root is normal size. Pericardium/Pleura There is no pericardial effusion. Interpretation Summary Technically limited study The left ventricle is normal in size. Left ventricular systolic function is normal. No regional wall motion abnormalities noted. Ejection Fraction = 65-70%. The right ventricular systolic function is normal. The left atrial size is normal. Right atrial size is normal. There is mild mitral regurgitation. There is mild tricuspid regurgitation. Pulmonary artery systolic pressure is at least 33 mmHg if RA pressure is assumed 3 mmHg (IVC was not clearly visualized) Mild pulmonic valvular regurgitation. There is no pericardial effusion. Rajendra Pierre MD 01/22/2019 04:06 PM
--- NOTE | 2019-01-22 17:27 | PN ---
Progress Note (short form) - Note Progress Note: surgery pt seen and examined. 29f s/p c-sec with decreased appetite, admitted for syncope and gi bleed. Ct showed abnormal appendix with fluid collection next to it. IR drainage confirmed it was hematoma and not an abscess making appendicitis less likely and more likely reactive changes to recent c-sec. wbc normal. no fever. abd- soft, minimal rlq tenderness Plan- unlikely appendicitis but appendicolith present and minimal thickening. suggest 5 days iv zosyn and 1 week augmentin. suggest interval appendectomy in 6 weeks. ok to start diet. 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
--- NOTE | 2019-01-22 18:25 | CONS ---
DATE OF CONSULTATION: 01/22/2019 REASON FOR CONSULTATION: Abnormal appendix, appendiceal abscess. This is an emergency room consultation at the request of the emergency room physician. BRIEF HISTORY: This is a 29-year-old female who is approximately 4 weeks status post section complicated by hemorrhage requiring blood transfusions. She had been at home for the past 3 weeks with decreased appetite. She presented to the emergency room and was admitted for syncopal episodes as well as seeing blood per rectum. She had been taking significant Motrin. She also has complaints of a constant, mild lower abdominal pain. She had a CAT scan of her abdomen and pelvis done with IV contrast, and it showed an appendix that had an appendicolith and was slightly thickened. Next to it appeared to be a fluid collection that was 4 cm x 3 cm x 4 cm concerning for an abscess. She was noted to have a prominent uterus. Her white blood cell count was 10.7 with 8.2 neutrophils, and her chemistry was unremarkable. She was admitted to the hospital for likely presumed perforated appendicitis with abscess. She was started on Zosyn antibiotic. Overnight she had no fevers recorded, and her white blood cell count returned to normal in the morning, and her absolute neutrophil count dropped to normal as well. At my request, she was evaluated by Dr. Mack, and a needle aspiration was done of the fluid collection, which confirmed that it was not an abscess, and it was more likely a hematoma with loculation. Dr. Mack felt that this was most likely related to her adnexa and from the recent . Request was made for surgical consultation. PAST MEDICAL HISTORY: As stated in the HPI. PAST SURGICAL HISTORY: As stated in the HPI. HOME MEDICATIONS: Include iron, ibuprofen, Toradol, and vitamins. ALLERGIES: She has no known allergies. FAMILY HISTORY: Noncontributory. REVIEW OF SYSTEMS: General: Denies fatigue or malaise. Cardiac: Denies chest pain or palpitations. Respiratory: Denies shortness of breath or wheeze. Gastrointestinal: As stated in HPI. Denies nausea, denies vomiting. Admits to decreased appetite and some blood in her stool. Genitourinary: Denies dysuria. Musculoskeletal: Denies joint pain. Psychiatric: Denies anxiety, depression, or hearing voices. PHYSICAL EXAMINATION: General: This is a well-developed, well-nourished 29-year-old female in no distress. Vital Signs: Her vital signs are stable. HEENT: Her head is normocephalic. Sclerae anicteric. Neck: Supple. Chest: Clear. Abdomen: Soft. She has mild right lower quadrant and left lower quadrant tenderness. She has a well-healed Pfannenstiel incision. She has no guarding. She is nondistended. Extremities: No edema. LABORATORY: Review of her laboratory, white blood cell count is 8.1, her hemoglobin is 8.9. Her reticulocyte count is elevated at 3.07. IMAGING: Review of her imaging, she has a CT as stated in HPI. She has a bladder ultrasound, which is suspicious of this fluid collection being an abscess. She has the abscess drainage by Dr. Mack, which confirmed that it is not an abscess and actually a hematoma, and she also had an echocardiogram as part of her syncope workup, which is unremarkable. ASSESSMENT: A 29-year-old female who presents with syncope, blood per rectum on nonsteroidal anti-inflammatory drug with pain since her section and decreased appetite. CAT scan shows a thickened appendix with an appendicolith with a fluid collection next to it. This fluid collection has been confirmed by IR aspiration to be hematoma and not an appendiceal abscess. Clinically, I suspect that she has periappendicitis and not acute appendicitis. In either event, she has already been started on intravenous antibiotic, and at the same time, she has improved. At this point, we would start regular diet. Would recommend 5 days of IV antibiotic. Would recommend 1 week of Augmentin p.o. antibiotic at home. Would recommend in 6 weeks she be evaluated for an interval appendectomy. She can call my office to arrange an appointment. My phone number is . I would not consider surgery at this point because of the acute postoperative changes from the emergency section, and if this is actually appendicitis, it appears to be responding well to antibiotics, and if it is truly complicated, it could involve an open surgery and a possible right colectomy. In either event, I suspect she does not have appendicitis but would still recommend interval appendectomy. As far as the blood in the abdomen likely secondary the previous section, that could be managed per the [facility] team. As far as the syncopal episode, per medicine. As far as the GI bleed, per the crystal report developer. At this point, there are no indications for acute surgery. Start regular diet, antibiotic regimen per my recommendations, and I will follow as an outpatient. DO SYLWIA MENESES/[id number]
[2019-01-22] MEDS ORDERED: ACETAMINOPHEN 1000 MG/100 ML VIAL (NON FORMULARY) IVPB PRN (19:29)
[2019-01-22] MEDS ORDERED: DEXTROSE 5%-WATER - 50 ML IVPB ONE (20:16)
[2019-01-22] MEDS ORDERED: PIPERACILLIN/TAZOBACTAM 3.375 GM VIAL IVPB ONE (20:16)
[2019-01-22] MEDS: DEXTROSE 5%-LACTATED RINGERS 1,000 ML IV SCH (20:56)
[2019-01-23 07:18] LABS: BASO % 0.4 % (0-2.0); EOS % 1.6 % (0-4.5); HEMATOCRIT 25.5 % (32.4-45.2); HEMOGLOBIN 8.6 GM/dL (10.7-15.3); LYMPH % 37.1 % (8-40); MCH 30.5 pg (25.7-33.7); MCHC 33.8 g/dl (32.0-36.0); MEAN CELL VOLUME 90.1 fl (80-96); MEAN PLT VOLUME 9.1 fl (7.5-11.1); MONO % 6.7 % (3.8-10.2); NEUT % 54.2 % (42.8-82.8); PLATELET COUNT 212 K/MM3 (134-434); RBC 2.84 M/mm3 (3.60-5.2); RDW 15.5 % (11.6-15.6)
[2019-01-23 07:50] LABS: BLOOD UREA NITROGEN 4.8 mg/dL (7-18); CALCIUM 8.2 mg/dL (8.5-10.1); CREATININE 0.6 mg/dL (0.55-1.3); POTASSIUM 3.5 mmol/L (3.5-5.1)
[2019-01-23] MEDS: PANTOPRAZOLE SODIUM 40 MG VIAL IVPUSH SCH (09:41)
--- NOTE | 2019-01-23 10:40 | PN ---
Progress Note (short form) - Note Progress Note: surgery pt remains well. for egd. afebrile abd- soft, minimal rlq tenderness Plan- doubt acute appendicitis but recommend medical management and interval appendectomy. can start diet when ok with GI.
--- NOTE | 2019-01-23 10:43 | PN ---
Progress Note (short form) - Note Progress Note: EGD complete. Report left in procedural section of physical chart and will be scanned into [facility]
[2019-01-23] MEDS: PANTOPRAZOLE 40 MG TABLET (FP) PO SCH (13:22)
--- NOTE | 2019-01-23 14:19 | PN ---
Physical Exam: SUBJECTIVE: Patient seen and examined in the morning. No acute events overnight. No blood in urine or stool. No chest pain, shortness of breath, abdominal pain, nausea, vomiting, diarrhea, fevers, or chills. OBJECTIVE: Vital Signs Period Temp Pulse Resp BP Sys/Arnold Pulse Ox Last 24 Hr 97.7 F-98.7 F 64-77 14-20 83-114/50-65 100-100 GENERAL: The patient is awake, alert, and fully oriented, in no acute distress. HEAD: Normal with no signs of trauma. EYES: PERRL, extraocular movements intact, sclera anicteric, conjunctiva clear. No ptosis. ENT: Ears normal, nares patent, oropharynx clear without exudates, moist mucous membranes. NECK: Trachea midline, full range of motion, supple. LUNGS: Breath sounds equal, clear to auscultation bilaterally, no wheezes, no crackles, no accessory muscle use. HEART: Regular rate and rhythm, S1, S2 without murmur, rub or gallop. ABDOMEN: Nontender to palpation. . Surgical sites from are closed with no erythema. Normoactive bowel sounds. EXTREMITIES: 2+ pulses, warm, well-perfused, no edema. NEUROLOGICAL: Cranial nerves II through XII grossly intact. Normal speech, gait not observed. PSYCH: Normal mood, normal affect. SKIN: Warm, dry, normal turgor, no rashes or lesions noted Laboratory Results - last 24 hr 01/22/19 01/23/19 01/23/19 05:30 06:33 06:33 WBC 6.0 RBC 2.84 L Hgb 8.6 L Hct 25.5 L MCV 90.1 MCH 30.5 MCHC 33.8 RDW 15.5 Plt Count 212 MPV 9.1 Absolute Neuts (auto) 3.3 Neutrophils % 54.2 Lymphocytes % 37.1 Monocytes % 6.7 Eosinophils % 1.6 D Basophils % 0.4 Nucleated RBC % 0 Haptoglobin 170 Sodium 146 H Potassium 3.5 Chloride 113 H Carbon Dioxide 27 Anion Gap 5 L BUN 4.8 L Creatinine 0.6 Est GFR (CKD-EPI)AfAm 143.77 Est GFR (CKD-EPI)NonAf 124.04 Random Glucose 99 Calcium 8.2 L Active Medications Generic Name Dose Route Start Last Admin Trade Name Freq PRN Reason Stop Dose Admin Acetaminophen 650 mg 12/02/19 19:29 01/22/19 23:57 Ofirmev Injection - IVPB 650 mg Q4H PRN Administration PAIN LEVEL 6-10 Dextrose/Lactated Ringer's 1,000 mls @ 125 mls/hr 01/21/19 19:45 01/22/19 20: 56 D5-Lr - IV 125 mls/hr ASDIR MARLEN Administration Piperacillin Sod/Tazobactam 50 mls @ 100 mls/hr 01/22/19 02:00 Sod 3.375 gm/ Dextrose IVPB Q6H MARLEN Protocol Pantoprazole Sodium 40 mg 01/23/19 10:45 01/23/19 13:22 Protonix - PO Not Given DAILY MARLEN ASSESSMENT/PLAN: 29F PMH s/p complicated by hemorrhage which required 3 units of blood, Fe deficiency anemia, right ovarian cyst, who was presented s/p multiple episodes of syncope. Was found to have appendiceal abscess on imaging done in emergency department. 1) Acute Appendicitis with Abscess -CT of abdomen pelvis showed soft tissue inflammatory changes confined to right lower quadrant adjacent to appendix. Cystic mass in right lower quadrant concerning for abscess adjacent to a prominent appendix with appendicolith. No evidence of bowel obstruction, free air or diverticulitis. Moderate stool burden. Early appendicitis with abscess may be present. -Zoysn 3.375 grams IV Q6H -Elective appendectomy in late February/March -IR drainage done today, culture pending -LR @125 ml/hr -IR consulted, appreciate recs -Print Shop Chief Clerk consulted, appreciate recs -Surgery consulted, appreciate recs 2)Stool occult blood positive -EGD completed -Two small polyps found in gastric body, antral erosions, single 6mm clean based duondenal bulb ulcer found. -biopsy pending -Protonix 40 mg PO Daily for 8 weeks -Patient received 2 units overnight. Hgb currently 8.9 3)Syncope likely secondary to hypovolemia -Echo negative -Telemetry monitoring 4)Hypokalemia -Repleted in AM DVT Prophylaxis: SCD F: LR @125 E: Monitor CMP N: Regular diet as per Surgery Visit type - Emergency Visit Emergency Visit: Yes ED Registration Date: 01/21/19 Care time: The patient presented to the Emergency Department on the above date and was hospitalized for further evaluation of their emergent condition. - New Patient This patient is new to me today: No - Critical Care Critical Care patient: No ATTENDING PHYSICIAN STATEMENT I saw and evaluated the patient. I reviewed the resident's note and discussed the case with the resident. I agree with the resident's findings and plan as documented. SUBJECTIVE: OBJECTIVE: ASSESSMENT AND PLAN:
--- NOTE | 2019-01-23 17:23 | PN ---
Teaching Attending Note Name of Resident: Ildefonso Livingston ATTENDING PHYSICIAN STATEMENT I saw and evaluated the patient. I reviewed the resident's note and discussed the case with the resident. I agree with the resident's findings and plan as documented. SUBJECTIVE: No complaints. OBJECTIVE: Vital Signs Period Temp Pulse Resp BP Sys/Arnold Pulse Ox Last 24 Hr 97.7 F-98.7 F 62-77 14-20 83-117/50-65 100-100 HEART: S1S2, RRR LUNGS: Clear ABDOMEN: Soft, non-tender, non-distended, normal BS, healing incision EXTREMITIES: No edema Laboratory Results - last 24 hr 01/22/19 01/23/19 01/23/19 05:30 06:33 06:33 WBC 6.0 RBC 2.84 L Hgb 8.6 L Hct 25.5 L MCV 90.1 MCH 30.5 MCHC 33.8 RDW 15.5 Plt Count 212 MPV 9.1 Absolute Neuts (auto) 3.3 Neutrophils % 54.2 Lymphocytes % 37.1 Monocytes % 6.7 Eosinophils % 1.6 D Basophils % 0.4 Nucleated RBC % 0 Haptoglobin 170 Sodium 146 H Potassium 3.5 Chloride 113 H Carbon Dioxide 27 Anion Gap 5 L BUN 4.8 L Creatinine 0.6 Est GFR (CKD-EPI)AfAm 143.77 Est GFR (CKD-EPI)NonAf 124.04 Random Glucose 99 Calcium 8.2 L Current Medications Generic Name Dose Route Start Last Admin Trade Name Freq PRN Reason Stop Dose Admin Acetaminophen 650 mg 01/22/19 19:29 01/22/19 23:57 Ofirmev Injection - IVPB 650 mg Q4H PRN Administration PAIN LEVEL 6-10 Dextrose/Lactated Ringer's 1,000 mls @ 125 mls/hr 01/21/19 19:45 01/22/19 20: 56 D5-Lr - IV 125 mls/hr ASDIR MARLEN Administration Piperacillin Sod/Tazobactam 50 mls @ 100 mls/hr 01/22/19 02:00 Sod 3.375 gm/ Dextrose IVPB Q6H MARLEN Protocol Pantoprazole Sodium 40 mg 01/23/19 10:45 01/23/19 13:22 Protonix - PO Not Given DAILY MARLEN ASSESSMENT AND PLAN: 29 year old female s/p (12/18/18) complicated by hemorrhage requiring blood transfusion x 3, brought to hospital status post multiple episodes of syncope on 01/21/2019 without HI, tongue biting, tonic/ clonic activitiy, or incontinence. Found to be anemic in ED with FOBT positive stool, received 2 units PRBCs.. 1. Acute appendicitis with abscess - s/p drainage by IR - aerobic culture negative after 24 hours, anaerobic culture pending - Continue Zosyn - Plan for elective appendectomy in 4-6 weeks 2. Anemia - Possibly secondary to acute GI blood loss - Normocytic - Hemoglobin 01/21 was 7.3, 12/18 was 12.7 prior to - EGD showed normal esophageal mucosa, two small polyps in body of stomach, antral erosions, clean based duodenal bulb ulcer - No NSAIDs - Continue Protonix x 8 weeks - Follow up biopsy/H. pylori - Transfused 2 units PRBCs 3. Syncope - Likely secondary to anemia with hypovolemia/hypotension 4. Hypokalemia - Improved
[2019-01-23] MEDS ORDERED: PIPERACILLIN/TAZOBACTAM 3.375 GM VIAL IVPB ONE (21:58)
[2019-01-23] MEDS ORDERED: DEXTROSE 5%-WATER - 50 ML IVPB ONE (21:58)
[2019-01-23] MEDS: PIPERACILLIN/TAZOB 3.375 GM 3.375 GM in DEXTROSE 5%-WATER - 50 ML IVPB SCH (22:11)
[2019-01-24] MEDS ORDERED: DEXTROSE 5%-WATER - 50 ML IVPB ONE ×3 (02:18→20:58)
[2019-01-24] MEDS ORDERED: PIPERACILLIN/TAZOBACTAM 3.375 GM VIAL IVPB ONE ×3 (02:18→20:58)
[2019-01-24] MEDS: PIPERACILLIN/TAZOB 3.375 GM 3.375 GM in DEXTROSE 5%-WATER - 50 ML IVPB SCH ×3 (03:43→21:12)
[2019-01-24 06:31] LABS: BASO % 0.5 % (0-2.0); EOS % 2.4 % (0-4.5); HEMATOCRIT 28.4 % (32.4-45.2); HEMOGLOBIN 9.5 GM/dL (10.7-15.3); LYMPH % 33.8 % (8-40); MCH 30.4 pg (25.7-33.7); MCHC 33.5 g/dl (32.0-36.0); MEAN CELL VOLUME 90.5 fl (80-96); MEAN PLT VOLUME 8.9 fl (7.5-11.1); MONO % 6.1 % (3.8-10.2); NEUT % 57.2 % (42.8-82.8); PLATELET COUNT 237 K/MM3 (134-434); RBC 3.14 M/mm3 (3.60-5.2); RDW 16.6 % (11.6-15.6)
[2019-01-24 07:06] LABS: BLOOD UREA NITROGEN 6.7 mg/dL (7-18); CALCIUM 8.1 mg/dL (8.5-10.1); CREATININE 0.8 mg/dL (0.55-1.3); POTASSIUM 3.5 mmol/L (3.5-5.1)
--- NOTE | 2019-01-24 07:59 | PN ---
Teaching Attending Note Name of Resident: Ildefonso Livingston ATTENDING PHYSICIAN STATEMENT I saw and evaluated the patient. I reviewed the resident's note and discussed the case with the resident. I agree with the resident's findings and plan as documented with exceptions below. SUBJECTIVE: Patient seen and examined. Right lower abdominal soreness around the drainage site. Dark stool resolving, no dizziness, fevers, chills noted. Has been ambulating, tolerating diet well. OBJECTIVE: Vital Signs Period Temp Pulse Resp BP Sys/Arnold Pulse Ox Last 24 Hr 97.8 F-98.3 F 57-69 14-20 83-117/50-82 100-100 Intake & Output 01/21/19 01/22/19 01/23/19 01/24/19 23:59 23:59 23:59 23:59 Intake Total 357.5 1165 190 Balance 357.5 1165 190 Weight 150 lb 150 lb 150 lb General: sitting in bed in no acute distress Neck: soft, supple Chest: CTAb, no rales or wheezing Abdomen:soft, RMQ/RLQ mild tenderness around the drainage site, no voluntary or involuntary guarding or rigidity, pos bowel sounds Extremities: no edema Home Medications Medication Instructions Recorded Ibuprofen [Motrin -] 800 mg PO TID 01/04/19 95/Iron Fum/Folic/Dha 1 tab PO DAILY 01/04/19 [ + Dha Combo Pack] Ferrous Sulfate [Feosol] 325 mg PO TID 01/21/19 Active Medications Acetaminophen (Ofirmev Injection -) 650 mg IVPB Q4H PRN PRN Reason: PAIN LEVEL 6-10 Last Admin: 01/22/19 23:57 Dose: 650 mg Piperacillin Sod/Tazobactam (Sod 3.375 gm/ Dextrose) 50 mls @ 100 mls/hr IVPB Q6H MARLEN; Protocol Piperacillin Sod/Tazobactam (Sod 3.375 gm/ Dextrose) 50 mls @ 100 mls/hr IVPB Q6H-IV MARLEN Stop: 01/24/19 09:29 Last Admin: 01/24/19 03:43 Dose: 100 mls/hr Pantoprazole Sodium (Protonix -) 40 mg PO DAILY MARLEN Last Admin: 01/23/19 13:22 Dose: Not Given Laboratory Results - last 24 hr 01/22/19 01/24/19 01/24/19 05:30 05:37 05:37 WBC 7.0 RBC 3.14 L Hgb 9.5 L Hct 28.4 L MCV 90.5 MCH 30.4 MCHC 33.5 RDW 16.6 H Plt Count 237 MPV 8.9 Absolute Neuts (auto) 4.0 Neutrophils % 57.2 Lymphocytes % 33.8 Monocytes % 6.1 Eosinophils % 2.4 Basophils % 0.5 Nucleated RBC % 0 Haptoglobin 170 Sodium 146 H Potassium 3.5 Chloride 111 H Carbon Dioxide 27 Anion Gap 8 BUN 6.7 L Creatinine 0.8 Est GFR (CKD-EPI)AfAm 116.28 Est GFR (CKD-EPI)NonAf 100.33 Random Glucose 90 Calcium 8.1 L Microbiology 01/22/19 12:00 Abscess Gram Stain - Final 01/22/19 12:00 Abscess Body Fluid Culture - Preliminary NO AEROBIC GROWTH, [address] A/P and pelvic US results reviewed 2D echo results reviewed ASSESSMENT AND PLAN: 29 year old female s/p (12/18/18) complicated by hemorrhage requiring blood transfusion x 3, Right ovarian cyst, brought to hospital status post multiple episodes of syncope on 01/21/2019 without HI, tongue biting, tonic/clonic activitiy, or incontinence. Found to be anemic in ED with FOBT positive stool, received 2 units PRBCs. -Acute blood loss anemia, suspected GI loss from erosions/Duodenal Bulb ulcer/ NSAIDs use in the setting of recent iron deficiency anemia from post haemorrhage -Syncope, suspect from anemia/hypovolumia/hypotension -Acute appendicitis with abscess -Hypokalemia Plan: EGD results noted, PPI x 8 weeks. Follow up biopsy/H. pylori results, treat accordingly. No NSAIDs. h/h stable. s/p IR guided suspected right appendicular abscess drainage. Emperic zosyn. Follow up cultures/ID input noted. Surgery input noted. Advance PO per GI/surgery. On regular diet, taper IVF if tolerating well. 2D echo noted, no events on telemetry. Replete K prn DVTPPX SCDs Dispo pending culture results, and abx plan if no new bleed or anemia concerns in 24-48 hours Plan discussed with patient and nursing.
[2019-01-24] MEDS: PANTOPRAZOLE 40 MG TABLET (FP) PO SCH (10:22)
--- NOTE | 2019-01-24 14:51 | CON.ID ---
Consult - Past Medical History ...LMP: 03/12/18 ...: No - Past Surgical History Past Surgical History: Yes: , Cystectomy (right) - Alcohol/Substance Use Hx Alcohol Use: No History of Substance Use: reports: None - Smoking History Smoking history: Never smoked Have you smoked in the past 12 months: No - Social History ADL: Independent History of Recent Travel: No Home Medications - Allergies Allergies/Adverse Reactions: Allergies Allergy/AdvReac Type Severity Reaction Status Date / Time No Known Allergies Allergy Verified 12/18/18 11:34 - Home Medications Home Medications: Ambulatory Orders Ibuprofen [Motrin -] 800 mg PO TID 01/04/19 95/Iron Fum/Folic/Dha [ + Dha Combo Pack] 1 tab PO DAILY Ferrous Sulfate [Feosol] 325 mg PO TID 01/21/19 Physical Exam Vital Signs: Vital Signs Temperature 97.8 F 01/24/19 06:00 Pulse Rate 67 01/24/19 14:15 Respiratory Rate 18 01/24/19 14:15 Blood Pressure 102/55 L 01/24/19 14:15 O2 Sat by Pulse Oximetry (%) 100 01/23/19 21:00 Labs: CBC, BMP 01/24/19 05:37 01/24/19 05:37 Assessment/Plan continue zosyn as planned by surgery cultures are so far negative can f/u with po augmentin with plans for interval appencdectomy
--- NOTE | 2019-01-24 16:35 | PN ---
Progress Note (short form) - Note Progress Note: No melena, no abdominal pain. Feels great. Anxious to go home. VSS Abd soft, ND/NT Hgb continues to rise Advance diet. Stable from GI bleed standpoint. Continue abx for appendicitis.
--- NOTE | 2019-01-24 16:38 | PN ---
Progress Note (short form) - Note Progress Note: ID consult dictated imp/reccd 29 yo female s/p csection 12/18 complicated by hemorrhage, requiring 3 unit transfusion, developed RLQ pain at home after discharge- took a lot of ibuprofen at home had syncope and was admitted 01/21- found to be anemic and transfused- gi bleed s /p EGD with duodenal ulcer ct scan with RLQ collection with appendix with mild slight thickening and appendicolith- felt to be c/w appendicitis aspiration of RLQ abscess yielded hematoma- cultures so far negative now day #3 zosyn would agree with surgical evaluation- reasonable to complete 5 days zosyn then po augmentin for another week with surgical f/u for interval appendectomy avoid quinolones with recent prolonged qtc Problem List - Problems (1) Appendicitis Code(s): K37 - UNSPECIFIED APPENDICITIS (2) Abscess of appendix Code(s): K35.33 - ACUTE APPENDICITIS WITH PERF AND LOC PERITONITIS, WITH ABSCS (3) Symptomatic anemia Code(s): D64.9 - ANEMIA, UNSPECIFIED (4) GI bleed due to NSAIDs Code(s): K92.2 - GASTROINTESTINAL HEMORRHAGE, UNSPECIFIED; T39.395A - ADVERSE EFFECT OF NONSTEROIDAL ANTI-INFLAMMATORY DRUGS, INIT
--- NOTE | 2019-01-24 17:34 | CONS ---
DATE OF CONSULTATION: DATE OF DICTATION: 01/24/2019 CONSULTATION REQUESTED BY: Hospitalist Service HISTORY OF PRESENT ILLNESS: This is a 29-year-old woman. She is a very good historian. She was recently in the hospital on December 18 when she had a section. The section was complicated by a hemorrhage requiring three units of packed blood cells. She was discharged home on the on Motrin, iron and prenatals. After discharge, she noted that she had some right lower quadrant pain. She was taking the ibuprofen p.r.n. for incisional pain. She came back to the emergency room on January 04 complaining of pain and headaches. She had blood work that was unremarkable and she was discharged home. She continued to have right lower quadrant discomfort. She was taking ibuprofen several times a day. She had no fevers at home. She had an episode of syncope. She was brought to the emergency room by 911. There has had no seizure-like activity. During her hospital course since that time, she was found to be anemic. She was given two units of packed cells. She had a CT of her abdomen and pelvis that showed a hematoma vs. abscess next to the appendix which showed some mild thickening and an appendicolith. She was noted have guaiac-positive stools. At home, she had noted black stools but she thought this was due to her iron. She underwent an endoscopy and was found to have a small duodenal ulcer. She had this small fluid collection drained in her right lower quadrant which she tells me was primarily blood. No drain was placed. She was seen by gynecology as well as by surgery and GI. She is currently resting quite comfortably and feels well. She has no fevers or chills and she reports she finally has an appetite. She is not . PAST MEDICAL HISTORY: Notable for the . This is her first child. She has a history of iron-deficiency anemia and a right ovarian cyst. SOCIAL HISTORY: She is not working. No history of cigarette, alcohol or substance use. ALLERGIES: No known drug allergies. HOME MEDICATIONS: She was taking ibuprofen, iron and prenatals at home. REVIEW OF SYSTEMS: She currently feels well. She is not passing any black stools. She has no abdominal pain and the discomfort in her right lower quadrant has resolved. PHYSICAL EXAMINATION: Vital Signs: She is afebrile. Temperature is 97.8, pulse is 67, blood pressure 102/55, respiratory rate 18. HEENT: Normocephalic. Her eyes are anicteric. Neck: Supple. Lungs: Clear to auscultation. Heart: Regular rate and rhythm. Abdomen: Soft. She is completely nontender. The right lower quadrant is without any discomfort. The incision looks clean and dry. Extremities: Without edema. LABORATORY DATA: On admission, white count was 10.7. Today, it is 7. Hemoglobin is 9.5, platelets are 237. Chemistries are normal. Culture from the abscess fluid is negative as well as the gram stain. CT scan findings are as previously reported. In summary, this is a young lady with a recent section complicated by hemorrhage with possible appendicitis and with a GI bleed that is most likely secondary to ibuprofen use. Would agree with surgery that it seems this collection may have just been hematoma and she may have early appendicitis. Would continue Zosyn as planned for five days with followup Augmentin. Would avoid quinolones since on admission, she had a QTc of 483. Augmentin after the Zosyn for a week as suggested by surgery appears appropriate with interval appendectomy. Please call back if needed. Kit [id number]
--- NOTE | 2019-01-24 17:43 | PN ---
Physical Exam: SUBJECTIVE: Patient seen and examined in the morning. No acute events overnight. No blood in urine or stool. No chest pain, shortness of breath, abdominal pain, nausea, vomiting, diarrhea, fevers, or chills. OBJECTIVE: Vital Signs Period Temp Pulse Resp BP Sys/Arnold Pulse Ox Last 24 Hr 97.6 F-98.2 F 57-71 17-20 90-110/51-82 98-100 GENERAL: The patient is awake, alert, and fully oriented, in no acute distress. HEAD: Normal with no signs of trauma. EYES: PERRL, extraocular movements intact, sclera anicteric, conjunctiva clear. No ptosis. ENT: Ears normal, nares patent, oropharynx clear without exudates, moist mucous membranes. NECK: Trachea midline, full range of motion, supple. LUNGS: Breath sounds equal, clear to auscultation bilaterally, no wheezes, no crackles, no accessory muscle use. HEART: Regular rate and rhythm, S1, S2 without murmur, rub or gallop. ABDOMEN: Nontender to palpation. . Surgical sites from are closed with no erythema. Normoactive bowel sounds. EXTREMITIES: 2+ pulses, warm, well-perfused, no edema. NEUROLOGICAL: Cranial nerves II through XII grossly intact. Normal speech, gait not observed. PSYCH: Normal mood, normal affect. SKIN: Warm, dry, normal turgor, no rashes or lesions noted Laboratory Results - last 24 hr 01/21/19 01/24/19 01/24/19 14:45 05:37 05:37 WBC 7.0 RBC 3.14 L Hgb 9.5 L Hct 28.4 L MCV 90.5 MCH 30.4 MCHC 33.5 RDW 16.6 H Plt Count 237 MPV 8.9 Absolute Neuts (auto) 4.0 Neutrophils % 57.2 Lymphocytes % 33.8 Monocytes % 6.1 Eosinophils % 2.4 Basophils % 0.5 Nucleated RBC % 0 Sodium 146 H Potassium 3.5 Chloride 111 H Carbon Dioxide 27 Anion Gap 8 BUN 6.7 L Creatinine 0.8 Est GFR (CKD-EPI)AfAm 116.28 Est GFR (CKD-EPI)NonAf 100.33 Random Glucose 90 Calcium 8.1 L Blood Type O POSITIVE Antibody Screen Negative Crossmatch See Detail Active Medications Generic Name Dose Route Start Last Admin Trade Name Freq PRN Reason Stop Dose Admin Acetaminophen 650 mg 01/22/19 19:29 01/22/19 23:57 Ofirmev Injection - IVPB 650 mg Q4H PRN Administration PAIN LEVEL 6-10 Piperacillin Sod/Tazobactam 50 mls @ 100 mls/hr 01/22/19 02:00 Sod 3.375 gm/ Dextrose IVPB Q6H [facility] Protocol Pantoprazole Sodium 40 mg 01/23/19 10:45 01/24/19 10:22 Protonix - PO 40 mg DAILY MARLEN Administration ASSESSMENT/PLAN: 29F PMH s/p complicated by hemorrhage which required 3 units of blood, Fe deficiency anemia, right ovarian cyst, who was presented s/p multiple episodes of syncope. Was found to have appendiceal abscess on imaging done in emergency department. 1) Acute Appendicitis with Abscess -CT of abdomen pelvis showed soft tissue inflammatory changes confined to right lower quadrant adjacent to appendix. Cystic mass in right lower quadrant concerning for abscess adjacent to a prominent appendix with appendicolith. No evidence of bowel obstruction, free air or diverticulitis. Moderate stool burden. Early appendicitis with abscess may be present. -Zoysn 3.375 grams IV Q6H -Elective appendectomy in late February/March -IR drainage done today, culture pending -LR @125 ml/hr -IR consulted, appreciate recs -[employer] consulted, appreciate recs -Surgery consulted, appreciate recs 2)Stool occult blood positive -EGD completed -Two small polyps found in gastric body, antral erosions, single 6mm clean based duondenal bulb ulcer found. -biopsy pending -Protonix 40 mg PO Daily for 8 weeks -Patient received 2 units overnight. Hgb currently 8.9 3)Syncope likely secondary to hypovolemia -Echo negative -Telemetry monitoring 4)Hypokalemia -Repleted in AM DVT Prophylaxis: SCD F: LR @125 E: Monitor CMP N: Regular diet as per Surgery Visit type - Emergency Visit Emergency Visit: Yes ED Registration Date: 01/21/19 Care time: The patient presented to the Emergency Department on the above date and was hospitalized for further evaluation of their emergent condition. - New Patient This patient is new to me today: No - Critical Care Critical Care patient: No ATTENDING PHYSICIAN STATEMENT I saw and evaluated the patient. I reviewed the resident's note and discussed the case with the resident. I agree with the resident's findings and plan as documented. SUBJECTIVE: OBJECTIVE: ASSESSMENT AND PLAN:
--- NOTE | 2019-01-24 17:43 | PATH ---
Surgical Pathology Report Patient Name: SAL KEY [facility]. Rec. #: [id number] /Age/Gender: 1990 (Age: 29) / F Account: [id number] Location: 4 W TELEMETRY U Taken: 01/23/2019 Received: 01/23/2019 Reported: 01/24/2019 Physicians: Vin Cardona D.O. Specimen(s) Received A: ANTRAL EROSION B: ANTRUM/BODY C: BODY GASTRIC POLYPS Clinical History Anemia, GI bleed Postoperative diagnosis: Gastric polyps, gastritis, duodenal bulb ulcer Final Diagnosis A. ANTRUM EROSION, BIOPSY: GASTRIC MUCOSA WITH MILD CHRONIC GASTRITIS. REACTIVE GASTROPATHY PRESENT. IMMUNOSTAIN FOR H. PYLORI IS NEGATIVE. NEGATIVE FOR INTESTINAL METAPLASIA. B. ANTRUM/BODY BIOPSY: GASTRIC MUCOSA WITH CHRONIC GASTRITIS. IMMUNOSTAIN FOR H. PYLORI IS NEGATIVE. NEGATIVE FOR INTESTINAL METAPLASIA. C. BODY OF STOMACH, GASTRIC POLYPS X 2, BIOPSY: FUNDIC GLAND POLYP, TWO FRAGMENTS. IMMUNOSTAIN FOR H. PYLORI IS NEGATIVE. NEGATIVE FOR INTESTINAL METAPLASIA. Electronically Signed John Urena M.D. Gross Description A. Received in formalin, labeled "biopsy antral erosion" are 2 woody, irregular portions of soft tissue measuring 0.3 and 0.4 cm. in greatest dimension. The specimens are submitted in toto in one cassette. B. Received in formalin, labeled "biopsy antrum/body" are 3 woody, irregular portions of soft tissue ranging from 0.1-0.3 cm. in greatest dimension. The specimens are submitted in toto in one cassette. C. Received in formalin, labeled "biopsy body stomach" are 2 woody, irregular portions of soft tissue averaging 0.3 cm. in greatest dimension. The specimens are submitted in toto in one cassette. DL/01/23/2019 saudi01/23/2019
[2019-01-25] MEDS ORDERED: DEXTROSE 5%-WATER - 50 ML IVPB ONE (05:27)
[2019-01-25] MEDS ORDERED: PIPERACILLIN/TAZOBACTAM 3.375 GM VIAL IVPB ONE (05:27)
[2019-01-25] MEDS: PIPERACILLIN/TAZOB 3.375 GM 3.375 GM in DEXTROSE 5%-WATER - 50 ML IVPB SCH (06:11)
[2019-01-25 07:27] LABS: BASO % 0.4 % (0-2.0); EOS % 2.4 % (0-4.5); HEMATOCRIT 27.2 % (32.4-45.2); HEMOGLOBIN 9.1 GM/dL (10.7-15.3); LYMPH % 29.4 % (8-40); MCH 30.4 pg (25.7-33.7); MCHC 33.6 g/dl (32.0-36.0); MEAN CELL VOLUME 90.4 fl (80-96); MEAN PLT VOLUME 9.1 fl (7.5-11.1); MONO % 5.9 % (3.8-10.2); NEUT % 61.9 % (42.8-82.8); PLATELET COUNT 231 K/MM3 (134-434); RBC 3.01 M/mm3 (3.60-5.2); RDW 16.7 % (11.6-15.6); WHITE BLOOD COUNT 6.4 K/mm3 (4.0-10.0)
[2019-01-25 07:30] VITALS: TEMP 97.8
[2019-01-25 07:41] LABS: BLOOD UREA NITROGEN 9.1 mg/dL (7-18); CALCIUM 8.2 mg/dL (8.5-10.1); CREATININE 0.8 mg/dL (0.55-1.3); POTASSIUM 3.5 mmol/L (3.5-5.1)
[2019-01-25 09:11] VITALS: BP 111/76; PULSE 58
[2019-01-25] MEDS: PANTOPRAZOLE 40 MG TABLET (FP) PO SCH (09:13)
--- NOTE | 2019-01-25 13:16 | PN ---
Teaching Attending Note Name of Resident: Ildefonso Livingston ATTENDING PHYSICIAN STATEMENT I saw and evaluated the patient. I reviewed the resident's note and discussed the case with the resident. I agree with the resident's findings and plan as documented with exceptions below. SUBJECTIVE: Patient seen and examined. abdominal pain improved, no new complaints, eager to go home. OBJECTIVE: Vital Signs Period Temp Pulse Resp BP Sys/Arnold Pulse Ox Last 24 Hr 97.5 F-98.7 F 53-67 17-20 95-111/47-76 100 Intake & Output 01/22/19 01/23/19 01/24/19 01/25/19 23:59 23:59 23:59 23:59 Intake Total 357.5 1165 820 130 Balance 357.5 1165 820 130 Weight 150 lb 150 lb General: sitting in chair, no acute distress Neck: soft, supple Chest: CTAB, no rales or wheezing Abdomen:soft mild tenderness at drainage site, no voluntary or involuntary guarding or rigidity, pos bowel sounds Extremities: no edema Home Medications Medication Instructions Recorded 95/Iron Fum/Folic/Dha 1 tab PO DAILY 01/04/19 [ + Dha Combo Pack] Ferrous Sulfate [Feosol] 325 mg PO TID 01/21/19 Cefuroxime Axetil [Ceftin -] 500 mg PO BID 7 Days #14 tablet 01/25/19 Pantoprazole Sodium [Protonix -] 40 mg PO DAILY 60 Days #60 01/25/19 tablet.ec metroNIDAZOLE [Flagyl -] 500 mg PO TID 7 Days #21 tablet 01/25/19 Laboratory Results - last 24 hr 01/21/19 01/25/19 01/25/19 14:45 06:40 06:40 WBC 6.4 RBC 3.01 L Hgb 9.1 L Hct 27.2 L MCV 90.4 MCH 30.4 MCHC 33.6 RDW 16.7 H Plt Count 231 MPV 9.1 Absolute Neuts (auto) 4.0 Neutrophils % 61.9 Lymphocytes % 29.4 Monocytes % 5.9 Eosinophils % 2.4 Basophils % 0.4 Nucleated RBC % 0 Sodium 144 Potassium 3.5 Chloride 111 H Carbon Dioxide 26 Anion Gap 7 L BUN 9.1 Creatinine 0.8 Est GFR (CKD-EPI)AfAm 116.28 Est GFR (CKD-EPI)NonAf 100.33 Random Glucose 91 Calcium 8.2 L Blood Type O POSITIVE Antibody Screen Negative Crossmatch See Detail Microbiology 01/22/19 12:00 Abscess Gram Stain - Final 01/22/19 12:00 Abscess Body Fluid Culture - Final NO GROWTH OF AEROBIC ORGANISMS AFTER 48 HOURS INCUBATION 01/22/19 12:00 Abscess Anaerobic Culture - Final NO ANAEROBES WERE ISOLATED ASSESSMENT AND PLAN: 29 year old female s/p (12/18/18) complicated by hemorrhage requiring blood transfusion x 3, Right ovarian cyst, brought to hospital status post multiple episodes of syncope on 01/21/2019 without HI, tongue biting, tonic/clonic activitiy, or incontinence. Found to be anemic in ED with FOBT positive stool, received 2 units PRBCs. -Acute blood loss anemia, suspected GI loss from erosions/Duodenal Bulb ulcer/ NSAIDs use in the setting of recent iron deficiency anemia from post haemorrhage -Syncope, suspect from anemia/hypovolumia/hypotension -Acute appendicitis with abscess -Hypokalemia Plan: Fluid cx neg. Discussed with Dr. Woods. Patient not planning to breastfeed. Dc on 1 week of ceftin/flagyl. PPI x 8 weeks, outpatient Gi follow up for biopsy results GERD dietary instructions discussed with patient. Outpatient surgery follow up. Patient advised to avoid alcohol/NSAIDs/ for now. Dc home today with close outpatient CBC follow up, Surgery/GI follow up Discharge instructions have been discussed in detail with patient and family at bedside, all questions answered. They relay full understanding and agree to comply with all the instructions and follow up.
--- NOTE | 2019-01-25 13:18 | DS ---
Physical Exam: SUBJECTIVE: Patient seen and examined in the morning. No acute events overnight. No blood in urine or stool. No chest pain, shortness of breath, abdominal pain, nausea, vomiting, diarrhea, fevers, or chills. OBJECTIVE: Vital Signs Period Temp Pulse Resp BP Sys/Arnold Pulse Ox Last 24 Hr 97.5 F-98.7 F 53-67 17-20 95-111/47-76 100 PHYSICAL EXAM GENERAL: The patient is awake, alert, and fully oriented, in no acute distress. HEAD: Normal with no signs of trauma. EYES: PERRL, extraocular movements intact, sclera anicteric, conjunctiva clear. No ptosis. ENT: Ears normal, nares patent, oropharynx clear without exudates, moist mucous membranes. NECK: Trachea midline, full range of motion, supple. LUNGS: Breath sounds equal, clear to auscultation bilaterally, no wheezes, no crackles, no accessory muscle use. HEART: Regular rate and rhythm, S1, S2 without murmur, rub or gallop. ABDOMEN: Nontender to palpation. . Surgical sites from are closed with no erythema. Normoactive bowel sounds. EXTREMITIES: 2+ pulses, warm, well-perfused, no edema. NEUROLOGICAL: Cranial nerves II through XII grossly intact. Normal speech, gait not observed. PSYCH: Normal mood, normal affect. SKIN: Warm, dry, normal turgor, no rashes or lesions noted LABS Laboratory Results - last 24 hr 01/21/19 01/25/19 01/25/19 14:45 06:40 06:40 WBC 6.4 RBC 3.01 L Hgb 9.1 L Hct 27.2 L MCV 90.4 MCH 30.4 MCHC 33.6 RDW 16.7 H Plt Count 231 MPV 9.1 Absolute Neuts (auto) 4.0 Neutrophils % 61.9 Lymphocytes % 29.4 Monocytes % 5.9 Eosinophils % 2.4 Basophils % 0.4 Nucleated RBC % 0 Sodium 144 Potassium 3.5 Chloride 111 H Carbon Dioxide 26 Anion Gap 7 L BUN 9.1 Creatinine 0.8 Est GFR (CKD-EPI)AfAm 116.28 Est GFR (CKD-EPI)NonAf 100.33 Random Glucose 91 Calcium 8.2 L Blood Type O POSITIVE Antibody Screen Negative Crossmatch See Detail HOSPITAL COURSE: Date of Admission:01/21/19 Date of Discharge: 01/25/19 29F PMH s/p complicated by hemorrhage which required 3 units of blood, Fe deficiency anemia, right ovarian cyst, who was presented s/p multiple episodes of syncope. Patient was found to be anemic and had 2 units of blood transfused in Emergency department. Was found to have appendiceal abscess on imaging done in emergency department. Patient had abscess drained by IR, which resulted in blood drainage-more likely hematoma. Will have appendectomy in February as per general surgery. Results of abscess drainage pending. Patient was found to have positive FOBT, and had EGD completed and was started on protonix 40 mg PO daily for 8 weeks. Will follow up with GI for results of biopsy from EGD. Patient was advised to stop taking NSAIDs for pain and use alternative such as tylenol. Patient presented with syncope initially, and echo was done which was negative. Telemetry monitoring was negative as well. Patient was treated with 5 day course of IV zoysn, will continue with PO Ceftin 500 BID, and PO Flagyl 500 TID. Patient has no plans to breastfeed and was made aware that she should not breastfeed while on this antibiotic course. Imaging done this admission: Echo: The left ventricle is normal in size. Left ventricular systolic function is normal. No regional wall motion abnormalities noted. Ejection Fraction = 65-70%. The right ventricular systolic function is normal. The left atrial size is normal. Right atrial size is normal. There is mild mitral regurgitation. There is mild tricuspid regurgitation. Pulmonary artery systolic pressure is at least 33 mmHg if RA pressure is assumed 3 mmHg (IVC was not clearly visualized) Mild pulmonic valvular regurgitation. Chest X-Ray: Impression: No acute chest pathology Abdomen/Pelvis CT: Right lower quadrant thick-walled fluid collections suspicious for abscess. The collection is adjacent to a slightly thickened appendix which does contain an appendicolith. This appearance is suspicious for acute appendicitis. Clinical correlation and follow -up recommended. Bladder U/S: Small bilateral ovarian cysts with the right lower quadrant mass suspicious for an abscess. Clinical correlation and follow-up recommended. Please see above discussion. Minutes to complete discharge: 30 Discharge Summary Problems reviewed: Yes Reason For Visit: SYNCOPE,SECONDARY ANEMIA Condition: Stable - Instructions Diet, Activity, Other Instructions: You were admitted to the hospital because you fainted. We saw that you were anemic (low blood count) and gave you a transfusion of blood. Your blood levels remained stable. We scanned your heart and that was normal. We saw that you had appendicitis. We had the Interventional radiology team drain a mass that was near your appendix. You will need to follow up with the general surgeon in order to have an appendectomy completed in February to remove your appendix. You were given IV antibiotics, and will take oral antibiotics at home. While you were here we performed an endoscopy. You will follow up the results with Dr. Cardona. Please do not take any ibuprofen or motrin at home. MEDICATIONS We have made the following additions to your medication regimen. Please take the following: Please START Ceftin 500mg, twice a day by mouth for 7 days. Please START Flagyl, 500mg, three times a day by mouth for 7 days. *DO NOT BREASTFEED WHILE TAKING FLAGYL.* DO NOT DRINK ALCOHOL WHILE TAKING FLAGYL Please START Protonix 40 mg once a day by mouth for the next 8 weeks, then as directed by your doctor. You may continue taking your other home medications. DO NOT TAKE ANY NSAIDS SUCH IBUPROFEN, MOTRIN, NAPROXEN ETC. INSTRUCTIONS: Small meals at frequent intervals, avoid eating 2-3 hours before going to bed Keep head end of bed elevated. Sit upright during and for 1 hour after meals. Do not drink alcohol or take any form of NSAIDs or blood thinners without discussion with your doctor. REFERRAL Please follow up with your primary care physician within 1 week. If you do not have one, you may follow up at [facility] residency clinic in the [facility]. Please follow up with the asbestos surveyor, Dr. Cardona within 1 week for your endoscopy biopsy results. You will need repeat blood work (CBC) within 1 week to check your hemoglobin levels. Please follow up with your surgeon, Dr. Aguilar within 1 week. You will need an appendectomy in the future once your infection resolves. Please follow up with for continued post-op care. If you experience persistent fever/chills, worsening abdominal pain, chest pain , or other feelings of unwellness, please proceed to your nearest emergency room immediately. Referrals: [facility] [place] [facility] [place] [Provider Group] - 1 Week Chaparro Cardona DO [Staff Physician] - 1 Week Meghann Ramírez MD [Staff Physician] - 1 Week Mohinder Aguilar MD [Staff Physician] - 1 Week Disposition: VNS/HOME HEALTH CARE - Home Medications Comprehensive Discharge Medication List: Ambulatory Orders 95/Iron Fum/Folic/Dha [ + Dha Combo Pack] 1 tab PO DAILY Ferrous Sulfate [Feosol] 325 mg PO TID 01/21/19 Cefuroxime Axetil [Ceftin -] 500 mg PO BID 7 Days #14 tablet 01/25/19 Pantoprazole Sodium [Protonix -] 40 mg PO DAILY 60 Days #60 tablet.ec 01/25/19 metroNIDAZOLE [Flagyl -] 500 mg PO TID 7 Days #21 tablet 01/25/19 This patient is new to me today: No Emergency Visit: Yes ED Registration Date: 01/21/19 Care time: The patient presented to the Emergency Department on the above date and was hospitalized for further evaluation of their emergent condition. Critical Care patient: No - Discharge Referral Referred to [facility] Med [facility] No ATTENDING PHYSICIAN STATEMENT I saw and evaluated the patient. I reviewed the resident's note and discussed the case with the resident. I agree with the resident's findings and plan as documented. SUBJECTIVE: OBJECTIVE: ASSESSMENT AND PLAN:
== END 2019-01-25 14:45 | disposition home health service (06) | DRG 561 ==
LOC: JER 13:48 → JERBED 15:21 → J4W 01-22 20:01
PROVIDERS: ADMIT Internal Medicine; ATTEND Hospitalist
PROC: 0DB68ZX Excision of Stomach, Via Natural or Artificial Opening Endoscopic, Diagnostic (ICD-10-PCS; 2019-01-23)
PROC: 0DB78ZX Excision of Stomach, Pylorus, Via Natural or Artificial Opening Endoscopic, Diagnostic (ICD-10-PCS; 2019-01-23)
PROC: 0DB98ZX Excision of Duodenum, Via Natural or Artificial Opening Endoscopic, Diagnostic (ICD-10-PCS; principal; 2019-01-23 13:30)
DX: O90.89 Other complications of the puerperium, not elsewhere classified (principal); K26.0 Acute duodenal ulcer with hemorrhage; O90.81 Anemia of the puerperium; N83.292 Other ovarian cyst, left side; O99.89 Other specified diseases and conditions complicating pregnancy, childbirth and the puerperium; K35.33 Acute appendicitis with perforation, localized peritonitis, and gangrene, with abscess; E87.6 Hypokalemia; I95.9 Hypotension, unspecified; R11.0 Nausea; R63.0 Anorexia; Z68.28 Body mass index [BMI] 28.0-28.9, adult; D50.9 Iron deficiency anemia, unspecified; E86.1 Hypovolemia; D62 Acute posthemorrhagic anemia; T39.395A Adverse effect of other nonsteroidal anti-inflammatory drugs [NSAID], initial encounter
CPT/HCPCS: 36415; 36430; 36511; 49406; 71045-TC-FY; 74177-TC; 76098-TC-FY; 76856-TC; 77012-TC; 80048; 80053; 81003; 82272; 82550; 82728; 83010; 83605; 83615; 83735; 83880; 84100; 84443; 84484; 84703; 85025; 85027; 85044; 85610; 85730; 86850; 86900; 86901; 86922; 87070; 87075; 87205; 87899; 88305-TC; 93005; 93010; 93306-TC; 99285-25; C1769; J0131; P9038; P9058; Q9967

== ENCOUNTER 2019-02-06 16:26 | Emergency (ER) | payer OTHER ==
--- NOTE | 2019-02-06 16:30 | PDOC ---
Rapid Medical Evaluation Time Seen by Provider: 02/06/19 16:29 Medical Evaluation: Allergies Allergy/AdvReac Type Severity Reaction Status Date / Time No Known Allergies Allergy Verified 12/18/18 11:34 02/06/19 16:29 I have performed a brief in-person evaluation of this patient. The patient presents with a chief complaint of: back pain and dizziness. dx with possible appy two weeks ago but Pertinent physical exam findings: well appearing, mild tenderness to RLQ and R flank I have ordered the following: labs, urine The patient will proceed to the ED for further evaluation. Discharge Disposition - Diagnosis Abdominal pain - Referrals - Patient Instructions - Post Discharge Activity
[2019-02-06 16:32] VITALS: BMI 28.3
[2019-02-06 17:05] LABS: BASO % 0.3 % (0-2.0); EOS % 0.5 % (0-4.5); HEMATOCRIT 37.8 % (32.4-45.2); HEMOGLOBIN 12.4 GM/dL (10.7-15.3); LYMPH % 4.1 % (8-40); MCH 30.3 pg (25.7-33.7); MCHC 32.8 g/dl (32.0-36.0); MEAN CELL VOLUME 92.4 fl (80-96); MEAN PLT VOLUME 9.2 fl (7.5-11.1); MONO % 4.1 % (3.8-10.2); PLATELET COUNT 256 K/MM3 (134-434); RBC 4.09 M/mm3 (3.60-5.2); RDW 16.8 % (11.6-15.6); WHITE BLOOD COUNT 15.1 K/mm3 (4.0-10.0)
[2019-02-06 17:18] LABS: PROTHROMBIN TIME (PATIENT) 11.8 SEC (9.7-13.0)
[2019-02-06 17:37] LABS: BILIRUBIN,TOTAL 0.3 mg/dL (0.2-1); BLOOD UREA NITROGEN 12.7 mg/dL (7-18); CALCIUM 9.3 mg/dL (8.5-10.1); CREATININE 0.9 mg/dL (0.55-1.3); POTASSIUM 4.2 mmol/L (3.5-5.1); TOT PROT 7.4 g/dl (6.4-8.2)
--- NOTE | 2019-02-06 17:47 | PDOC ---
History of Present Illness - General Chief Complaint: Pain Stated Complaint: SACRAL PAIN/DIZZY/NAUSEA Time Seen by Provider: 02/06/19 16:29 History Source: Patient Exam Limitations: No Limitations - History of Present Illness Travel History: No Initial Comments: 02/06/19 18:03 29-year-old female status post right lower quadrant abscess requiring drainage along with antibiotics which she states she completed about a week ago. Patient states decided come to the ER when she developed chills and right lower quadrant pain a few days ago. Patient states status post approximately 2 months ago which also was performed here at [facility]. Patient denies urinary complaints, bowel complaints irregular menses, or vaginal discharge. Timing/Duration: reports: constant Quality: reports: mild, cramping, sharpness Abdominal Pain Onset Location: reports: RLQ Pain Radiation: reports: no radiation Activities at Onset: reports: none Aggravating Factors: improves with: None Alleviating Factors: improves with: None Past History - Travel Traveled outside of the country in the last 30 days: No Close contact w/someone who was outside of country & ill: No - Past Medical History Allergies/Adverse Reactions: Allergies Allergy/AdvReac Type Severity Reaction Status Date / Time No Known Allergies Allergy Verified 02/06/19 16:32 Home Medications: Ambulatory Orders Pantoprazole Sodium [Protonix -] 40 mg PO DAILY 60 Days #60 tablet.ec 01/25/19 Anemia: No Asthma: No Cancer: No Cardiac Disorders: No COPD: No Diabetes: No GI Disorders: Yes (ULCER) HTN: No Seizures: No Thyroid Disease: No - Surgical History Abdominal Surgery: Yes (RT OVARIAN CYST) Orthopedic Surgery: Yes (left wrist) - Immunization History Immunization Up to Date: No - Psycho Social/Smoking Cessation Hx Smoking History: Never smoked Have you smoked in the past 12 months: No Hx Alcohol Use: No Drug/Substance Use Hx: No Substance Use Type: None Hx Substance Use Treatment: No Patient Lives Alone: No Lives with/in: spouse/SO Review of Systems - Review of Systems Able to Perform ROS?: Yes Constitutional: Yes: Chills HEENTM: No: Symptoms Reported Respiratory: No: Symptoms reported Cardiac (ROS): No: Symptoms Reported ABD/GI: Yes: Abdominal cramping : No: Symptoms Reported Integumentary: No: Symptoms Reported Neurological: No: Symptoms reported Hematologic/Lymphatic: No: Symptoms Reported *Physical Exam - Vital Signs Last Vital Signs Temp Pulse Resp BP Pulse Ox 98.4 F 102 H 18 128/74 100 02/06/19 16:28 02/06/19 16:28 02/06/19 16:28 02/06/19 16:28 02/06/19 16:28 - Physical Exam General Appearance: Yes: Nourished, Appropriately Dressed. No: Apparent Distress HEENT: negative: Pale Conjunctivae Neck: positive: Supple Respiratory/Chest: positive: Lungs Clear, Normal Breath Sounds. negative: Respiratory Distress, Accessory Muscle Use Cardiovascular: positive: Regular Rhythm, Tachycardia. negative: Murmur Gastrointestinal/Abdominal: positive: Soft, Tenderness (rlq ) Musculoskeletal: negative: CVA Tenderness Extremity: positive: Normal Inspection Integumentary: positive: Normal Color, Warm, Moist Neurologic: positive: Motor Strength 5/5 (ambulatory) ED Treatment Course - LABORATORY CBC & Chemistry Diagram: 02/06/19 16:51 02/06/19 16:51 - ADDITIONAL ORDERS Additional order review: Laboratory Results 02/06/19 16:51 PT with INR 11.80 INR 1.00 02/06/19 16:51 RBC 4.09 MCV 92.4 MCHC 32.8 RDW 16.8 H MPV 9.2 Neutrophils % 91.0 H D Lymphocytes % 4.1 L D Monocytes % 4.1 Eosinophils % 0.5 Basophils % 0.3 - RADIOLOGY Radiology Studies Ordered: Category Date Time Status PELVIC / BLADDER US [US] Stat Ultrasound 02/06/19 17:31 Ordered Medical Decision Making - Medical Decision Making 02/06/19 17:47 Chief complaint: Right lower quadrant pain associated with chills patient with recent drainage of an abscess of the right lower quadrant abutting the appendix pending appendectomy next month. Patient had the initial abscess drained by interventional radiologist Dr. Mack and was sent home with p.o. antibiotics. Exam: Patient with right lower quadrant tenderness, mildly tachycardic plan: Labs, Urine, and ultrasound if ultrasound is inconclusive patient will need a CT 02/06/19 18:55 Laboratory Tests 02/06/19 02/06/19 16:51 16:51 WBC 15.1 H Hgb 12.4 Hct 37.8 D RDW 16.8 H Absolute Neuts (auto) 13.8 H Neutrophils % 91.0 H D Neutrophils % (Manual) 89.0 H Lymphocytes % 4.1 L D Sodium 142 Potassium 4.2 Anion Gap 7 L BUN 12.7 Calcium 9.3 Total Bilirubin 0.3 AST 15 ALT 22 Total Protein 7.4 Albumin 4.0 02/06/19 18:56 Called the lab to discuss the urine results since the tech in [facility] stated she sent a urine in triage. I was told the first specimen spilled and is awaiting a second specimen Discharge - Discharge Information Problems reviewed: Yes Clinical Impression/Diagnosis: Abdominal pain Qualifiers: Abdominal location: right lower quadrant Qualified Code(s): R10.31 - Right lower quadrant pain Disposition: AGAINST MEDICAL ADVICE - Follow up/Referral Referrals: Serenity Bell [Primary Care Provider] - - Patient Discharge Instructions - Post Discharge Activity
[2019-02-06 18:22] LABS: ANISOCYTOSIS 1+
[2019-02-06 18:23] LABS: PLATELET ESTIMATE ADEQUATE
[2019-02-06 19:01] VITALS: BP 110/62; PULSE 107; TEMP 98.9
[2019-02-06] MEDS ORDERED: ACETAMINOPHEN 1000 MG/100 ML VIAL (NON FORMULARY) IVPB ONE (19:01)
[2019-02-06] MEDS ORDERED: SODIUM CHLORIDE 1,000 ML IV STA (19:01)
[2019-02-06] MEDS ORDERED: ACETAMINOPHEN INJECTION 100 ML IVPB ONE (19:09)
--- NOTE | 2019-02-06 19:26 | PDOC ---
*Physical Exam - Vital Signs Last Vital Signs Temp Pulse Resp BP Pulse Ox 98.9 F 107 H 18 110/62 100 02/06/19 19:00 02/06/19 19:00 02/06/19 16:28 02/06/19 19:00 02/06/19 19:00 - Physical Exam General Appearance: Yes: Appropriately Dressed, Mild Distress ED Treatment Course - LABORATORY CBC & Chemistry Diagram: 02/06/19 16:51 02/06/19 16:51 - ADDITIONAL ORDERS Additional order review: Laboratory Results 02/06/19 02/06/19 16:51 16:51 PT with INR 11.80 INR 1.00 Sodium 142 Potassium 4.2 Chloride 107 Carbon Dioxide 28 Anion Gap 7 L BUN 12.7 Creatinine 0.9 Est GFR (CKD-EPI)AfAm 100.85 Est GFR (CKD-EPI)NonAf 87.01 Random Glucose 86 Calcium 9.3 Total Bilirubin 0.3 AST 15 ALT 22 Alkaline Phosphatase 81 Total Protein 7.4 Albumin 4.0 02/06/19 16:51 RBC 4.09 MCV 92.4 MCHC 32.8 RDW 16.8 H MPV 9.2 Neutrophils % 91.0 H D Lymphocytes % 4.1 L D Monocytes % 4.1 Eosinophils % 0.5 Basophils % 0.3 Medical Decision Making - Medical Decision Making 02/06/19 19:25 patient is noted to be tachycardic. previous chart reviewed. surgeon nelida Echavarria Interventional radiologist : Dr. Mack s/p appendegeal abscess. 02/06/19 20:58 I spoke to surgeon covering [email or web address] spoke to Dr. Byrd recommended admission. CTAP with IV/ PO contrast NPO. patient is informed of the U?S and plan patient refused any further treatment. reports that she is going to OSH for second opinion. Note: The patient insists on leaving the emergency dept and is signing out against medical advice. The patient understands the risks and complications that may result from the refusal of medical care and admission which includes and permanent disability. The patient has the mental capacity of understanding the risks of refusing care and is capable of making an informed decision. The patient was instructed to return to the emergency department should] change ind regarding medical care or should condition worsen. The patient signed the Against Medical Advice form. 02/06/19 21:04 02/06/19 21:34 Discharge - Discharge Information Problems reviewed: Yes Clinical Impression/Diagnosis: Abdominal pain Qualifiers: Abdominal location: right lower quadrant Qualified Code(s): R10.31 - Right lower quadrant pain Disposition: AGAINST MEDICAL ADVICE - Follow up/Referral Referrals: Serenity Bell [Primary Care Provider] - - Patient Discharge Instructions - Post Discharge Activity
[2019-02-06 19:40] LABS: PH,URINE 5.5 (5.0-8.0); URINE APPEARANCE CLOUDY; URINE BILIRUBIN NEGATIVE (NEGATIVE); URINE COLOR YELLOW; URINE GLUCOSE (UA) NEGATIVE (NEGATIVE); URINE KETONE NEGATIVE (NEGATIVE); URINE LEUK ESTERASE NEGATIVE (NEGATIVE); URINE NITRITE NEGATIVE (NEGATIVE); URINE PROTEIN NEGATIVE (NEGATIVE); URINE UROBILINOGEN 0.2 mg/dL (0.2-1.0)
== END 2019-02-06 21:00 | disposition left against medical advice (07) ==
LOC: JER 16:26
DX: R10.31 Right lower quadrant pain (principal)
CPT/HCPCS: 36415; 76856-TC; 80053; 81003; 84703; 85025; 85610; 87086; 87186; 99282-25